=== PATIENT | female | born 1935 | race Caucasian/White ===

== ENCOUNTER 2017-07-13 10:31 | Inpatient (IN) | payer OTHER, BC, MEDICARE ==
[~2017-07-13] VITALS: Ht 165.1 cm; Wt 95.4 kg
[~2017-07-13 10:31] MED LIST: AZOR 10-40 MG1 EACH PO; B12 1MG PE1000 MCG/M IM; COUMADIN 2.5 M2.5 MG PO; COUMADIN3 M1 PO; FLOMAX(MONOGRA0.4 MG PO; PRILOSEC40 MG PO; RIVA15T PO; SYNTHROID88 MCG PO; VITAMIN D50000 I1 PO; WARFARIN SODIU2.5 MG PO; WARFARIN SODIUM1 MG PO; XARELTO10 MG PO; XARELTO20 MG PO
--- NOTE | 2017-07-13 10:36 | ED GENERAL ADULT ---
History of Present Illness General Chief Complaint: Lower Extremity Problems Stated Complaint: SENT DR FOR LLE PROBLEM Source: patient, old records, WOUND CARE MD Exam Limitations: no limitations Vital Signs & Intake/Output Vital Signs & Intake/Output Vital Signs Date Time Temp Pulse Resp B/P B/P Pulse O2 O2 Flow FiO2 Mean Ox Delivery Rate 07/13 1652 200/70 07/13 1558 97.5 89 18 200/70 95 07/13 1304 Room Air 07/13 1046 99.2 104 15 189/82 94 Room Air Room Air Allergies Coded Allergies: indomethacin (UNKNOWN 07/09/15) Reconcile Medications Amlodipine Bes/Olmesartan Med (Sarah 10-40 MG Tablet) 10 MG-40 MG TABLET 1 TAB PO DAILY HEART (Reported) Levothyroxine Sodium (Synthroid) 88 MCG TABLET 1 TAB PO DAILY AC THYROID ( Reported) Warfarin Sodium (Coumadin) 3 MG TABLET 1 TAB PO DAILY dvt (Reported) Triage Nurses Notes Reviewed? yes (verbally) Onset: Gradual Duration: constant, continues in ED, YEARS Severity: severe HPI: Patient presents for evaluation of worsening lower extremity edema despite attempts at outpatient treatment. Patient has a past history of venous insufficiency and chronic leg edema for years. She was evaluated in the wound care center and was asked to come to the emergency department for evaluation and hospitalization for aggressive diuresis. Patient states that the leg swelling has begun to impact on her ability to ambulate and is causing her excessive fatigue with any exertion. Patient denies chest pain or shortness of breath. Past History Medical History Any Pertinent Medical History? 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 No Review of Systems Review of Systems Constitutional: Reports: no symptoms. EENTM: Reports: no symptoms. Respiratory: Reports: no symptoms. Cardiovascular: Reports: no symptoms. GI: Reports: no symptoms. Genitourinary: Reports: no symptoms. Musculoskeletal: Reports: no symptoms. Skin: Reports: see HPI. Neurological/Psychological: Reports: no symptoms. Hematologic/Endocrine: Reports: no symptoms. Immunologic/Allergic: Reports: no symptoms. All Other Systems: Reviewed and Negative Physical Exam Physical Exam General Appearance: SEE BELOW Comments: Gen.: Well-nourished, well-developed, no acute respiratory distress. Head: Normocephalic, atraumatic. Eyes: Normal inspection bilaterally Ears: Normal inspection bilaterally Nose: Normal inspection Throat/mouth : Moist mucosa Neck: Supple, full range of motion, no goiter Heart: Regular rate and rhythm Lungs: Quiet respirations Back: Normal range of motion Extremities: Bilateral 2-3+ pitting edema of the lower extremities, chronic skin changes present, erythema of the anterior aspect of the left leg is chronic per patient Neurologic: Cranial nerves grossly intact, speech is clear Skin: warm and dry Psychiatric: Calm, cooperative, no apparent delusions or hallucinations Core Measures ACS in differential dx? No CVA/TIA Diagnosis: No Sepsis Present: No Sepsis Focused Exam Completed? No Progress Differential Diagnoses I considered the following diagnoses in my evaluation of the patient: Congestive heart failure, renal insufficiency/failure, venous insufficiency, liver disease Plan of Care: Orders Procedure Date/time Status PROTHROMBIN TIME 07/14 0600 Active CBC WITHOUT DIFFERENTIAL 07/14 0600 Active BASIC ELECTROLYTES PLUS BUN&CR 07/14 0600 Active TROPONIN LEVEL 07/14 0200 Active EKG 07/14 0200 Active CHF Diet 07/13 D Active TROPONIN LEVEL 07/13 2000 Active EKG 07/13 2000 Active Lab Add-on Test 07/13 1450 Active THYROID STIMULATING HORMONE 07/13 1410 Complete TROPONIN LEVEL 07/13 1410 Complete FREE T4 07/13 1410 Complete B-TYPE NATRIURETIC PEP (BNP) 07/13 1410 Complete BASIC ELECTROLYTES PLUS BUN&CR 07/13 1410 Complete EKG 07/13 1404 Active Code Status 07/13 1354 Active Pathway - chart 07/13 1316 Active House Staff 07/13 1316 Active Lab Add-on Test 07/13 1316 Active ECHOCARDIOGRAM 07/13 1316 Active Patient Data 07/13 1309 Active PROTHROMBIN TIME 07/[address] in observation 07/13 1233 Active Misc Message 07/13 1233 Active ED Holding Orders 07/13 1233 Active Vital Signs 07/13 1233 Active Code Status 07/13 1233 Complete EKG 07/13 1109 Active Saline Lock 07/13 1036 Active CBC WITHOUT DIFFERENTIAL 07/13 1036 Complete BASIC METABOLIC PANEL 07/13 1036 Complete XRY-PORTABLE CHEST XRAY 07/13 UNK Active Lab Add-on Test 07/13 UNK Active Wound Care/Dressing 07/13 UNK Active Weight 07/13 UNK Active VTE Mechanical Prophylaxis 07/13 UNK Active Vital Signs 07/13 UNK Active Telemetry/County Program Technician 07/13 UNK Active Intake & Output 07/13 UNK Active Current Medications Sig/Blayne Start time Last Medication Dose Stop Time Status Admin Amlodipine Besylate 10 MG DAILY 07/14 0900 AC (Norvasc) Levothyroxine Sodium 0.088 MG DAILY AC 07/14 0700 AC (Synthroid) Furosemide 40 MG DAILY 07/13 1449 AC (Lasix) Losartan Potassium 100 MG DAILY 07/13 1449 AC 07/13 (Cozaar) 1652 Laboratory Tests 07/13/17 1410: Anion Gap 7, Estimated GFR > 60, BUN/Creatinine Ratio 15.0, Glucose 98, Calcium 9.6, Troponin I < 0.01, Tzi-K-Saqlhniolxr Pept 366 H, TSH 0.830, Free T4 1.89 07/13/17 1345: Sodium Cancelled, Potassium Cancelled, Chloride Cancelled, Carbon Dioxide Cancelled, Anion Gap Cancelled, BUN Cancelled, Creatinine Cancelled, BUN/ Creatinine Ratio Cancelled, TSH Cancelled, Free T4 Cancelled 07/13/17 1300: PT 23.3 H, INR 2.12 H, CBC w Diff NO MAN DIFF REQ, RBC 4.54, MCV 98.2, MCH 32.0 H, MCHC 32.6 L, RDW 13.9, MPV 9.6, Gran % 73.6, Lymphocytes % 16.8 L, Monocytes % 8.1, Eosinophils % 0.8, Basophils % 0.7, Absolute Granulocytes 4.4, Absolute Lymphocytes 1.0 L, Absolute Monocytes 0.5, Absolute Eosinophils 0, Absolute Basophils 0 Initial ED EKG: NSR, rate (90), lafb Comments: 07/13/2017 5:05:04 PM i was just contacted by [facility] regarding an ultrasound ordered by the house staff. The report was that the patient doesn't appear to have a DVT but there was a linear density noted that was thought to be a venous valve or potentially recannulized clot. The pain is otherwise widely patent and easily compressible. This verbal report was conveyed to the MOD who will notify the appropriate housestaff. Departure Departure Disposition: STILL A PATIENT Condition: Stable Clinical Impression Primary Impression: Peripheral edema Referrals: Mahendra OSORIO,Maryellen Lagos (PCP/Family) Departure Forms: Customer Survey General Discharge Information Observation Note Physician Advisor Notified: EDUARDO OSORIO,SOPHIA Ledezma Place Patient In: Non-ED OBS Care Area Rationale for Observation: My rational for observation is as follows patient presents for evaluation of worsening lower extremity edema causing increasingly difficult ambulation and worsening dyspnea/fatigue on exertion. The patient has failed outpatient treatment and now requires hospitalization for a more aggressive management with IV diuresis and close monitoring of potassium and renal functions. Intake and output and daily weights should be monitored to assure a negative fluid balance. Physical therapy consultation should be considered to assess the safety and stability of the patient's ambulation. Critical Care Note Critical Care Note Critical Care Time: non-applicable
--- NOTE | 2017-07-13 13:12 | History & Physical ---
Kelsey Kiran 07/13/17 1310: General Information and HPI MD Statement: I have seen and personally examined LIEN IZAGUIRRE and documented this H&P. The patient is a 81 year old F who presented with a patient stated chief complaint of [SIB by Dr. Rajput ror IV diuresis]. 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 Rajput for evaluation of worsening lower extremity edema despite attempts at outpatient treatment. Patient has a past history of venous insufficiency and chronic leg edema for years. Patient she has been having worsening extremity edema for the past couple of months she was afraid to come to the hospital for further evaluation stating that she might catch the flu. Patient denies any fever, chills, chest discomfort however does endorse shortness of breath while going up a flight of stairs. She states that it has progressively gotten worse. Of note patient uses a walker at baseline and she is cut back pain and her mobility is much limited by her pain. Of note she follows up with Dr. Mcdonnell last saw him about 6 months ago at that time was on Sarah 10-40 mg which she said that her insurance did not cover and was changed to a generic medication which did not help her and so she stopped taking the medication altogether. When asked how her legs were made she is I Dr. Hayes in 6 months ago she states that they were slightly puffy but he never put her on any diuretics or water pills. She called the wound center and had an appointment set up as she had some drainage from her lower extremities which were concerning for her. She was evaluated in the wound care center and was asked to come to the emergency department for evaluation and hospitalization for aggressive diuresis. Allergies/Medications Allergies: Coded Allergies: indomethacin (UNKNOWN 07/09/15) Home Med list Amlodipine Bes/Olmesartan Med (Sarah 10-40 MG Tablet) 10 MG-40 MG TABLET 1 TAB PO DAILY HEART (Reported) Levothyroxine Sodium (Synthroid) 88 MCG TABLET 1 TAB PO DAILY AC THYROID ( Reported) Warfarin Sodium (Coumadin) 3 MG TABLET 1 TAB PO DAILY dvt (Reported) Compliance With Home Meds: POOR Past History Travel History Traveled to [place] past 21 day No Medical History Cardiovascular: hypertension, hyperlipidemia Respiratory: COPD, mild, no history of oxygen requirement, monitored off inhalers remote history of pulmonary nodules which are not being followed routinely Gastrointestinal: GERD, recurrent food impaction in esophagus Hepatic: NONE Renal: nephrolithiasis Musculoskeletal: spinal stenosis chronic right lower extremity pain with ambulatory dysfunction Psychiatric: NONE Endocrine: HYPOTHY R/T THYROIDECTOMY Blood Disorders: DVTs in 2011 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 spouse Services at Home: None Primary Language: Faroese ETOH Use: denies use Illicit Drug Use: denies illicit drug use Functional Ability ADLs Independent: dressing, eating, toileting, bathing. Ambulation: walker IADLs Independent: shopping, housework, food prep, telephone, medication admin. Unknown: finances, transportation. Employment History Employment Retired Review of Systems Review of Systems Constitutional: Denies: chills, fever, weakness. EENTM: Denies: visual changes. Cardiovascular: Reports: edema, peripheral edema. Denies: chest pain, orthopena, palpitations, syncope. Respiratory: Reports: short of breath. Denies: cough, orthopnea, sputum production, wheezing. GI: Denies: abdominal pain, constipation, diarrhea, nausea, vomiting. Genitourinary: Reports: no symptoms. Musculoskeletal: Reports: back pain. Neurological/Psychological: Denies: headache, numbness, tingling, tremors. Exam & Diagnostic Data Last 24 Hrs of Vital Signs/I&O Vital Signs Date Time Temp Pulse Resp B/P B/P Pulse O2 O2 Flow FiO2 Mean Ox Delivery Rate 07/13 1304 Room Air 07/13 1046 99.2 104 15 189/82 94 Room Air Room Air Intake & Output 07/13 1600 07/13 0800 07/13 0000 Intake Total Output Total Balance Patient 230 lb Weight Weight Reported by Patient Measurement Method Physical Exam General Appearance Alert, Oriented X3, Cooperative, No Acute Distress, morbidly obese Skin Temp/Moisture Exam: Warm/Dry HEENT Atraumatic, EOMI, dry mucous membranes Neck Supple, No thryomegaly, No LAD, JVD~5cm Cardiovascular Regular Rate, Normal S1, Normal S2 Lungs mild crackles b/l in lower lungs Abdomen Normal Bowel Sounds, Soft, No Tenderness Neurological Normal Speech Extremities B/L chornic venous satis changes with blisters oozing serous discharge. LLE>RLE; more erythematous Last 24 Hrs of Labs/Oscar: Laboratory Tests 07/13/17 1300: PT Pending, INR Pending, CBC w Diff NO MAN DIFF REQ, RBC 4.54, MCV 98.2, MCH 32.0 H, MCHC 32.6 L, RDW 13.9, MPV 9.6, Gran % 73.6, Lymphocytes % 16.8 L, Monocytes % 8.1, Eosinophils % 0.8, Basophils % 0.7, Absolute Granulocytes 4.4, Absolute Lymphocytes 1.0 L, Absolute Monocytes 0.5, Absolute Eosinophils 0, Absolute Basophils 0 Diagnostic Data EKG Results NSR, HR: 90; incmplete LBBB (unachnged); baseline artifacts Assessment/Plan Assessment: 79-year-old white female with a a PMH of history of morbidly obese, hyperlipidemia, hypertension, COPD not on home oxygen, GERD, food impaction in esophagus, bladder wall repair 2012, nephrolithiasis, lumbo sacral spinal stenosis repair 2009 status post decompressive lumbosacral laminectomy with IVC filter placement, hypothyroidism, 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 Patient has a past history of venous insufficiency and chronic leg edema for years. She was evaluated in the wound care center and was asked to come to the emergency department for evaluation and hospitalization for aggressive diuresis. Vitals at the time of admission, hypertensive to 189/82; RR: 15; tachycardic to 104; saturating 94% on RA. Labs reveal normal white blood cell count of 6000, H&H of 14.5/98.2, platelet count 2 27,000. Serum chemistries were unremarkable with sodium of 140, potassium 4.1, bicarb of 30, anion gap of 7, BUN 12 with a creatinine of 0.8, TSH of 0.3 and a free T4 of 1.89 with an INR of 2.12. CXR: Not done Last echocardiogram was done in 2009 which showed stage I diastolic dysfunction with an EF of 55% Assessment and plan Place patient under observation on telemetry to rule out ACS or worsening CHF exacerbation #Worsening bilateral lower extremity edema Differential at this point include CHF exacerbation in the setting of being hypertensive and being noncompliant with her blood pressure medications. Regardless to rule out ACS with troponins and EKG at 8 PM and 2 AM Follow-up proBNP Follow-up chest x-ray Follow bilateral lower extremity Dopplers We will avoid off antibiotics for now she does not have a white blood cell count , fevers Diuresis with IV Lasix 40 mg daily as patient is sarah Echocardiogram to further evaluate for any regional wall motion abnormalities and to evaluate EF Cardiology consult with Dr. Mcdonnell has been placed. Please follow-up recommendations Wound consult in a.m. #Hypertension Diurese her with Lasix 40 mg IV daily Continue her on her home dose of amlodipine 10 mg daily starting tomorrow and will switch her to losartan 100 mg daily which is equivalent to 40 mg of olmesartan. #History of DVTs Dose Coumadin 3 mg #Hypothyroidism Continue levothyroxine 88 MCG daily DVT prophylaxis On warfarin Diet CHF CODE STATUS Full As Ranked By This Provider Problem List: 1. Peripheral edema 2. Hypertension Observation Initial Note - I have personally examined LIEN IZAGUIRRE on 07/13/17 at 1543. The disposition of LIEN IZAGUIRRE is uncertain at this time and before a determination can be made, she requires a period of observation for the following reasons [Diuresis for CHF] Core Measures/Misc (12/18) Acute Coronary Syndrome ACS Diagnosis: No Congestive Heart Failure Congestive Heart Failure Diagnosis Yes Last Known EF % 50 Cerebrovascular Accident CVA/TIA Diagnosis: No VTE (View Protocol) VTE Risk Factors Age>40 No Mechanical VTE Prophylaxis d/t N/A MechProphylax Ordered No VTE Pharm Prophylaxis d/t NA PharmProphylax ordered Sepsis (View protocol) Sepsis Present: No Resident Review Statement Resident Statement: admitted by resident Desire Garcia 07/13/17 1506: Attending MD Review Statement Attending Statement Attending MD Statement: examined this patient, discuss w/resident/PA/HABILITATION SPECIALIST, agreed w/resident/PA/HABILITATION SPECIALIST, discussed with family, reviewed EMR data (avail), discussed with nursing, discussed with case mgmt, reviewed images, amended to note Attending Assessment/Plan: 79 o/f with above mentioned history comes with chronic venous stasis of lower extremities was sent in by Dr. Rajput for evaluation of worsening lower extremity edema and accelerated hypertension. Patient placed on observation status for acute on chronic CHF exacerbation, ECHO 2009 EF >50%. Continue telemetry monitoring, obtain serial cardiac enzymes rule out AL. Received lasix 1v 40 mg daily. Cardiology consult, ECHO, Chest xray, USG lower extremities. Monitor BP. Resume home meds. GI/dvt prophyalxis full code.
[2017-07-13 13:13] LABS: ABSOLUTE BASOPHIL COUNT 0 /CUMM (0.0-0.2); ABSOLUTE EOSINOPHIL COUNT 0 /CUMM (0.0-0.7); ABSOLUTE GRANULOCYTE CT 4.4 /CUMM (1.4-6.5); ABSOLUTE MONOCYTE COUNT 0.5 /CUMM (0.10-0.60); BASOPHIL % 0.7 % (0.0-2.0); EOSINOPHIL % 0.8 % (0-5); GRANULOCYTE % 73.6 % (42.2-75.2); HEMATOCRIT 44.5 % (37-47); MEAN CORPUSCULAR HGB CONC 32.6 G/DL (33.0-37.0); MEAN CORPUSCULAR VOLUME 98.2 FL (81.0-99.0); MEAN PLATELET VOLUME 9.6 FL (7.4-10.4); PLATELET COUNT 227 /CUMM (130-400); RBC DISTRIBUTION WIDTH 13.9 % (11.5-14.5); RED BLOOD CELL CT 4.54 /CUMM (4.20-5.40)
[2017-07-13 13:47] LABS: PT 23.3 SEC (9.4-12.5)
--- NOTE | 2017-07-13 17:07 | ULTRASOUND REPORT ---
US TRIPLEX OF LOWER EXTREMITIES, BILATERAL CLINICAL INFORMATION: Left lower extremity greater than right lower extremity swelling COMPARISON: Doppler ultrasound 02/25/2016. TECHNIQUE: Color-flow triplex imaging with spectral analysis and compression Doppler were performed on the lower extremities. FINDINGS: There is a linear focus of intermediate echogenicity within the mid left femoral vein which remains fully compressible. I favor this to reflect a normal venous valve. A small focus of recanalized chronic thrombus is felt to be much less likely. Respiratory variation, normal compression and augmented flow are otherwise noted throughout the lower extremities. The visualized common femoral vein, superficial femoral vein, profunda femoral vein, popliteal vein and midcalf peroneal and posterior tibial venous segments show no additional evidence of deep venous thrombosis. There is no right greater saphenous vein. There is a Tao cyst on the right side measuring up to 0.8 x 2.7 x 1.4 cm. IMPRESSION: - No evidence of acute deep venous thrombosis. There is a linear focus of intermediate echogenicity within the mid left femoral vein which remains fully compressible. I favor this to reflect a normal venous valve. A small focus of recanalized chronic thrombus is felt to be much less likely. - There is a Tao cyst on the right side measuring up to 0.8 x 2.7 x 1.4 cm. Findings discussed with Dr. Morillo at 5:02 PM on 07/13/2017.
--- NOTE | 2017-07-13 17:21 | RADIOLOGY REPORT ---
EXAMINATION: XR PORTABLE CHEST CLINICAL INFORMATION: 81-year-old female patient with worsening shortness of breath and lower extremity edema. Presumptive diagnosis: CHF. COMPARISON: Portable chest x-ray on March 01, 2015. TECHNIQUE: Portable AP semierect view of the chest was obtained. FINDINGS: The heart is borderline size. Pulmonary vascularity is normal. Lungs are clear and there is no evidence of consolidation, edema, or atelectasis. No visible pleural effusion is seen. The patient's chin obscures a portion of the right apex. IMPRESSION: No CHF.
[2017-07-13 23:22] VITALS: BP 158/92
[2017-07-14 06:02] VITALS: BP 150/70
--- NOTE | 2017-07-14 07:23 | PN- Housestaff ---
Kelsey Kiran 07/14/17 0723: Subjective Follow-up For: - Bilateral lwoer extremity edema - Dyspnea on exertion - HTN Complaints: no complaints Tele-Events Since Last Visit: NSR 66-77, no overnight events Subjective: Patient seen and examined at bedside. She states she feels much better today, and that the sweling in her legs has come down. Denies any CP, palpitations, N/ V. Of note she put out almost 700mls of urine last evening after diuresis with Lasix. Review of Systems Constitutional: Denies: chills, fever, weakness. EENTM: Denies: visual changes. Cardiovascular: Reports: peripheral edema. Denies: chest pain, palpitations. Respiratory: Denies: cough, orthopnea, short of breath, wheezing. Gastrointestinal: Denies: abdominal pain, constipation, diarrhea, nausea, vomiting. Genitourinary: Reports: no symptoms. Musculoskeletal: Reports: no symptoms. Neurological/Psychological: Denies: numbness, paresthesia, tingling, tremors. Objective Last 24 Hrs of Vital Signs/I&O Vital Signs Date Time Temp Pulse Resp B/P B/P Pulse O2 O2 Flow FiO2 Mean Ox Delivery Rate 07/14 0602 97.9 79 18 150/70 93 Room Air 07/13 2322 98.2 81 18 158/92 94 Room Air 07/13 2006 98.5 82 18 187/81 99 Room Air 07/13 1652 200/70 07/13 1558 97.5 89 18 200/70 95 07/13 1304 Room Air 07/13 1046 99.2 104 15 189/82 94 Room Air Room Air Intake & Output 07/14 0800 07/14 0000 07/13 1600 Intake Total 240 Output Total 700 Balance -700 240 Intake, Oral 240 Output, Urine 700 Patient 226 lb 230 lb Weight Weight Bed scale Reported by Patient Measurement Method Physical Exam General Appearance: Alert, Oriented X3, Cooperative, No Acute Distress Skin Temp/Moisture Exam: Warm/Dry HEENT: Atraumatic, PERRLA, EOMI, Mucous Membr. moist/pink Neck: Supple, No JVD, No thryomegaly Cardiovascular: Regular Rate, Normal S1, Normal S2, No Murmurs Lungs: very mild bibasilar crackles Abdomen: Normal Bowel Sounds, Soft, No Tenderness Neurological: Normal Speech Extremities: b/l 1-2+ edema - better than last evening Current Medications: Current Medications Sig/Blayne Start time Last Medication Dose Route Stop Time Status Admin Amlodipine Besylate 10 MG DAILY 07/14 0900 AC PO Furosemide 0 .STK-MED ONE 07/13 1605 DC IV Furosemide 40 MG DAILY 07/13 1449 AC 07/13 IV 1723 Levothyroxine Sodium 0.088 MG DAILY AC 07/14 0700 AC 07/14 PO 0513 Losartan Potassium 100 MG DAILY 07/13 1449 AC 07/13 PO 1652 Warfarin Sodium 3 MG COUMADIN 1700 ONE 07/13 1700 DC 07/13 PO 07/13 1701 1652 Last 24 Hrs of Lab/Oscar Results Last 24 Hrs of Labs/Mics: Laboratory Tests 07/14/17 0621: Sodium Pending, Potassium Pending, Chloride Pending, Carbon Dioxide Pending, Anion Gap Pending, BUN Pending, Creatinine Pending, BUN/Creatinine Ratio Pending , PT Pending, INR Pending, CBC w Diff Pending, WBC Pending, RBC Pending, Hgb Pending, Hct Pending, MCV Pending, MCH Pending, MCHC Pending, RDW Pending, Plt Count Pending, MPV Pending 07/14/17 0225: Troponin I 0.02 07/13/17 2255: Troponin I 0.02 07/13/17 1410: Anion Gap 7, Estimated GFR > 60, BUN/Creatinine Ratio 15.0, Glucose 98, Calcium 9.6, Troponin I < 0.01, Mnf-O-Zjznsvsknih Pept 366 H, TSH 0.830, Free T4 1.89 07/13/17 1345: Sodium Cancelled, Potassium Cancelled, Chloride Cancelled, Carbon Dioxide Cancelled, Anion Gap Cancelled, BUN Cancelled, Creatinine Cancelled, BUN/ Creatinine Ratio Cancelled, TSH Cancelled, Free T4 Cancelled 07/13/17 1300: PT 23.3 H, INR 2.12 H, CBC w Diff NO MAN DIFF REQ, RBC 4.54, MCV 98.2, MCH 32.0 H, MCHC 32.6 L, RDW 13.9, MPV 9.6, Gran % 73.6, Lymphocytes % 16.8 L, Monocytes % 8.1, Eosinophils % 0.8, Basophils % 0.7, Absolute Granulocytes 4.4, Absolute Lymphocytes 1.0 L, Absolute Monocytes 0.5, Absolute Eosinophils 0, Absolute Basophils 0 Orders Radiology Findings: SERVICE DATE: 07/13/17- EXAM TYPE: RAD - XRY-PORTABLE CHEST XRAY FINDINGS: The heart is borderline size. Pulmonary vascularity is normal. Lungs are clear and there is no evidence of consolidation, edema, or atelectasis. No visible pleural effusion is seen. The patient's chin obscures a portion of the right apex. IMPRESSION: No CHF. SERVICE DATE: 07/13/17-EXAM TYPE: US - US-EXT BILAT VENOUS DOPPLER FINDINGS: There is a linear focus of intermediate echogenicity within the mid left femoral vein which remains fully compressible. I favor this to reflect a normal venous valve. A small focus of recanalized chronic thrombus is felt to be much less likely. Respiratory variation, normal compression and augmented flow are otherwise noted throughout the lower extremities. The visualized common femoral vein, superficial femoral vein, profunda femoral vein, popliteal vein and midcalf peroneal and posterior tibial venous segments show no additional evidence of deep venous thrombosis. There is no right greater saphenous vein. There is a Tao cyst on the right side measuring up to 0.8 x 2.7 x 1.4 cm. IMPRESSION: - No evidence of acute deep venous thrombosis. There is a linear focus of intermediate echogenicity within the mid left femoral vein which remains fully compressible. I favor this to reflect a normal venous valve. A small focus of recanalized chronic thrombus is felt to be much less likely. - There is a Tao cyst on the right side measuring up to 0.8 x 2.7 x 1.4 cm. 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 Patient has a past history of venous insufficiency and chronic leg edema for years. She was evaluated in the wound care center and was asked to come to the emergency department for evaluation and hospitalization for aggressive diuresis. Vitals at the time of admission, hypertensive to 189/82; RR: 15; tachycardic to 104; saturating 94% on RA. Labs reveal normal white blood cell count of 6000, H&H of 14.5/98.2, platelet count 2 27,000. Serum chemistries were unremarkable with sodium of 140, potassium 4.1, bicarb of 30, anion gap of 7, BUN 12 with a creatinine of 0.8, TSH of 0.3 and a free T4 of 1.89 with an INR of 2.12. CXR: Not done Last echocardiogram was done in 2009 which showed stage I diastolic dysfunction with an EF of 55% Assessment and plan Place patient under observation on telemetry to rule out ACS or worsening CHF exacerbation #Worsening bilateral lower extremity edema 2/2 CHF exacerbation in the setting of being hypertensive and being noncompliant with her blood pressure medications. ACS was r/o wuth trops and ECG unremarkable. His BNP was 366. Follow-up chest x-ray showed normal pulmonary vasculature. Lungs are clear and there is no evidence of consolidation, edema, or atelectasis. No visible pleural effusion is seen. Lower extremity Dopplers showed no evidence of acute deep venous thrombosis. There is a linear focus of intermediate echogenicity within the mid left femoral vein which remains fully compressible, which was deemed to reflect a normal venous valve. Continue to elder off antibiotics for now she does not have a white blood cell count, or fevers Continue diuresis with IV Lasix 40 mg daily Strict I's and O's F/U Echocardiogram to further evaluate for any regional wall motion abnormalities and to evaluate EF Cardiology consult with Dr. Mcdonnell has been placed. Please follow-up recommendations Wound consult in a.m. #Hypertension - Uncontrolled on admission 2/2 medication noncompliance, as patient stopped Continue her home dose of amlodipine 10 mg daily and losartan 100 mg daily which is equivalent to 40 mg of olmesartan. - Of note patient stats tahthis insurance doesnt cover the Sarah 10-40mg daily. #History of DVTs INR: 2.28 Dose Coumadin 3 mg #Hypothyroidism Continue levothyroxine 88 MCG daily TSH, FT4 WNL. DVT prophylaxis On warfarin Diet CHF CODE STATUS Full Problem List: 1. Peripheral edema 2. Hypertension Pain Ratin Pain Location: n/a Pain Goal: Remain pain free Pain Plan: tylenol Tomorrow's Labs & Rationales: BEP - Cr, K; INR - tiDesire Miranda 07/14/17 1054: Attending MD Review Statement Attending Statement Attending MD Statement: examined this patient, discuss w/resident/PA/LOGISTICS OPERATIONS DIRECTOR, agreed w/resident/PA/LOGISTICS OPERATIONS DIRECTOR, discussed with family, reviewed EMR data (avail), discussed with nursing, discussed with case mgmt, reviewed images, amended to note Attending Assessment/Plan: 79 o/f with above mentioned history comes with chronic venous stasis of lower extremities was sent in by Dr. Rajput for evaluation of worsening lower extremity edema and accelerated hypertension. Continue observation status for possible acute on chronic CHF exacerbation or possibel worsening of venous extremity stasis, Continue telemetry monitoring, serial cardiac enzymes negative for OK. lasix 1v 40 mg daily. Cardiology consult, ECHO f/u, Chest xray no pulmonary edema, USG lower extremities negative for DVT. BP better. GI/dvt prophyalxis full code. Anticipate dc soon.
[2017-07-14 07:48] LABS: ABSOLUTE BASOPHIL COUNT 0 /CUMM (0.0-0.2); ABSOLUTE EOSINOPHIL COUNT 0.1 /CUMM (0.0-0.7); ABSOLUTE GRANULOCYTE CT 4.1 /CUMM (1.4-6.5); ABSOLUTE LYMPH COUNT 0.9 /CUMM (1.2-3.4); ABSOLUTE MONOCYTE COUNT 0.5 /CUMM (0.10-0.60); BASOPHIL % 0.7 % (0.0-2.0); EOSINOPHIL % 1.2 % (0-5); GRANULOCYTE % 73.4 % (42.2-75.2); MEAN CORPUSCULAR HGB 32.3 PG (27.0-31.0); MEAN CORPUSCULAR HGB CONC 32.9 G/DL (33.0-37.0); MEAN PLATELET VOLUME 9.7 FL (7.4-10.4); PLATELET COUNT 208 /CUMM (130-400); RBC DISTRIBUTION WIDTH 13.4 % (11.5-14.5); RED BLOOD CELL CT 4.03 /CUMM (4.20-5.40); WHITE BLOOD CELL COUNT 5.6 /CUMM (4.8-10.8)
[2017-07-14 07:59] LABS: HEMATOCRIT 39.5 % (37-47)
[2017-07-14 08:21] LABS: PT 25.1 SEC (9.4-12.5)
--- NOTE | 2017-07-14 14:37 | Discharge Summary ---
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 Patient has a past history of venous insufficiency and chronic leg edema for years. She was evaluated in the wound care center and was asked to come to the emergency department for evaluation and hospitalization for aggressive diuresis. Vitals at the time of admission, hypertensive to 189/82; RR: 15; tachycardic to 104; saturating 94% on RA. Labs reveal normal white blood cell count of 6000, H&H of 14.5/98.2, platelet count 2 27,000. Serum chemistries were unremarkable with sodium of 140, potassium 4.1, bicarb of 30, anion gap of 7, BUN 12 with a creatinine of 0.8, TSH of 0.3 and a free T4 of 1.89 with an INR of 2.12. CXR: Not done Last echocardiogram was done in 2009 which showed stage I diastolic dysfunction with an EF of 55% Patient was placed under observation on telemetry for worsening CHF exacerbation and to rule out ACS #Worsening bilateral lower extremity edema 2/2 acute CHF exacerbation in the setting of being hypertensive and being noncompliant with her blood pressure medications. ACS was r/o with trops and ECG unremarkable. Her BNP was 366. Chest x-ray showed normal pulmonary vasculature. Lungs are clear and there is no evidence of consolidation, edema, or atelectasis. No visible pleural effusion is seen. Lower extremity Dopplers showed no evidence of acute deep venous thrombosis. There is a linear focus of intermediate echogenicity within the mid left femoral vein which remains fully compressible, which was deemed to reflect a normal venous valve. We warded her off antibiotics as she did not have a white blood cell count, or fevers She was started on iv diuresis with Lasix 40 mg daily. Patient diuresed well. She is being discharged on Lasix 40mg PO daily. Of note echocardiogram was doen to further evaluate for any regional wall motion abnormalities and to evaluate EF. It showed no RWMA, mild concentric left ventricular hypertrophy. Normal left ventricular ejection fraction visually estimated at 65%. Abnormal relaxation filling pattern of the left ventricle for age(stage 1 diastolic dysfunction). #Hypertension Patient was hypertensive to 189/92 on admission. This was 2/2 medication noncompliance, as patient stopped her home medications 2/2 insurance issues. She was continue her home dose of amlodipine 10 mg daily and losartan 100 mg daily which is equivalent to 40 mg of olmesartan. She was seen by her primary corrugator machine operator Dr. Mcdonnell who recommended she be on her home regimen of Amlodipine 10mg daily and Losartan 100mg daily. #History of DVTs Patient was continued on her home dose of Coumaidn. She remained theraapeutic throughout #Hypothyroidism She was continued on levothyroxine 88 MCG daily. Of note her TSH and FT4 were WNL. DVT prophylaxis Patient was on warfarin Diet CHF CODE STATUS Patient was full code Allergies: Coded Allergies: indomethacin (UNKNOWN 07/09/15) Significant Procedures: SERVICE DATE: 07/13/17- EXAM TYPE: RAD - XRY-PORTABLE CHEST XRAY FINDINGS: The heart is borderline size. Pulmonary vascularity is normal. Lungs are clear and there is no evidence of consolidation, edema, or atelectasis. No visible pleural effusion is seen. The patient's chin obscures a portion of the right apex. IMPRESSION: No CHF. SERVICE DATE: 07/13/17- EXAM TYPE: US - US-EXT BILAT VENOUS DOPPLER FINDINGS: There is a linear focus of intermediate echogenicity within the mid left femoral vein which remains fully compressible. I favor this to reflect a normal venous valve. A small focus of recanalized chronic thrombus is felt to be much less likely. Respiratory variation, normal compression and augmented flow are otherwise noted throughout the lower extremities. The visualized common femoral vein, superficial femoral vein, profunda femoral vein, popliteal vein and midcalf peroneal and posterior tibial venous segments show no additional evidence of deep venous thrombosis. There is no right greater saphenous vein. There is a Tao cyst on the right side measuring up to 0.8 x 2.7 x 1.4 cm. IMPRESSION: - No evidence of acute deep venous thrombosis. There is a linear focus of intermediate echogenicity within the mid left femoral vein which remains fully compressible. I favor this to reflect a normal venous valve. A small focus of recanalized chronic thrombus is felt to be much less likely. - There is a Tao cyst on the right side measuring up to 0.8 x 2.7 x 1.4 cm. Findings discussed with Dr. Morillo at 5:02 PM on 07/13/2017. SERVICE DATE: 07/13/17 EXAM TYPE: CARD - ECHOCARDIOGRAM FINDINGS Left Ventricle Normal size left ventricle. Mild concentric left ventricular hypertrophy. No obvious regional wall motion abnormalities. Normal left ventricular ejection fraction visually estimated at 65%. Abnormal relaxation filling pattern of the left ventricle for age (stage 1 diastolic dysfunction). Right Ventricle Upper normal limits for size right ventricle. Right Atrium Normal right atrial size. Left Atrium Normal left atrial size. Mitral Valve Mildly calcified mitral valve annulus. Mitral valve mildly thickened. No mitral regurgitation. Aortic Valve Aortic valve not well visualized. Mild aortic sclerosis. No aortic valve stenosis or regurgitation. Tricuspid Valve Structurally normal tricuspid valve. Trace tricuspid regurgitation. Unable to estimate the right ventricular systolic pressure. Pulmonic Valve Not well visualized. No pulmonic regurgitation. Pericardium No pericardial effusion. Great Vessels Upper normal size aortic root. Dilated inferior vena cava. CONCLUSIONS Normal size left ventricle. Mild concentric left ventricular hypertrophy. Normal left ventricular ejection fraction visually estimated at 65%. Abnormal relaxation filling pattern of the left ventricle for age (stage 1 diastolic dysfunction). Upper normal limits for size right ventricle. Normal atrial size. Trace tricuspid regurgitation. Unable to estimate the right ventricular systolic pressure. Dilated inferior vena cava. Blayne Mcdonnell M.D. (Electronically Signed) Final Date: 14 July 2017 18:13 MEASUREMENTS (Male / Female) Normal Values 2D ECHO LV Diastolic Diameter PLAX 4.2 cm 4.2 - 5.9 / 3.9 - 5.3 cm LV Systolic Diameter PLAX 2.7 cm 2.1 - 4.0 cm LV Fractional Shortening PLAX 35.7 % 25 - 46 % LV Ejection Fraction 2D Teich 65.6 % IVS Diastolic Thickness 1.1 cm LVPW Diastolic Thickness 1.1 cm LV Relative Wall Thickness 0.5 RV Internal Dim ED PLAX 3.8 cm 1.9 - 3.8 cm LVOT Diameter 1.8 cm Aortic Root Diameter 3.5 cm LA Systolic Diameter LX 3.0 cm 3.0 - 4.0 / 2.7 - 3.8 cm LA Volume 36.0 cm 18 - 58 / 22 - 52 cm Ascending Aorta Diameter 3.4 cm DOPPLER AV Peak Velocity 152.0 cm/s AV Peak Gradient 9.2 mmHg AV Mean Velocity 102.0 cm/s AV Mean Gradient 5.0 mmHg AV Velocity Time Integral 32.3 cm LVOT Peak Velocity 108.0 cm/s LVOT Peak Gradient 4.7 mmHg LVOT Mean Velocity 64.5 cm/s LVOT Mean Gradient 2.0 mmHg LVOT Velocity Time Integral 26.5 cm LVOT Stroke Volume 67.4 cm AV Area Cont Eq vti 2.1 cm AV Area Cont Eq pk 1.8 cm MV Peak Velocity 165.0 cm/s MV Peak Gradient 10.9 mmHg MV Mean Velocity 90.0 cm/s MV Mean Gradient 4.0 mmHg Mitral E Point Velocity 86.4 cm/s Mitral A Point Velocity 140.0 cm/s Mitral E to A Ratio 0.6 MV PHT Velocity 118.0 cm/s MV Deceleration [place] 671.0 cm/s MV Pressure Half Time 52.8 ms MV Area PHT 4.2 cm MV Deceleration Time 408.0 ms PV Peak Velocity 116.0 cm/s PV Peak Gradient 5.4 mmHg PV Mean Velocity 82.7 cm/s PV Mean Gradient 3.0 mmHg PV Velocity Time Integral 24.3 cm Disposition Summary Disposition Principal Diagnosis: Worsening B/L lower extremity edema 2/2 HF Uncontrolled HTN Additional Diagnosis: Hypothyroidism Hx of DVT Discharge Disposition: home or self care Discharge Instructions General Discharge Information Code Status: Full Code Patient's Diet: CHF Patient's Activity: As tolerated Follow-Up Instructions/Appts: Please follow up with your primary c are phsyician in one week. Please follow up with your corrugator machine operator in one week. Please follow-up withy Dr. Rajput in the wound care center within 2-3 days of discharge. Medications at Discharge Discharge Medications: Stop taking the following medications: Amlodipine Bes/Olmesartan Med (Sarah 10-40 MG Tablet) 10 MG-40 MG TABLET ORAL DAILY Continue taking these medications: Levothyroxine Sodium (Synthroid) 88 MCG TABLET 1 Tablet ORAL DAILY BEFORE BREAKFAST Comments: Last Taken:07/16/17 Time:0630 Warfarin Sodium (Coumadin) 3 MG TABLET 1 Tablet ORAL DAILY Comments: 2.5 MG RECEIVED 07/16/17 Start taking the following new medications: Furosemide (Furosemide) 40 MG TABLET 1 Tablet ORAL DAILY Qty = 90 No Refills Instructions: . Comments: Last Taken:07/16/17 GIVEN IV AT HOSPITAL Time:1600 Losartan (Cozaar) 100 MG TABLET 100 Milligram ORAL DAILY Qty = 90 No Refills Instructions: . Comments: Last Taken:07/16/17 Time:0830 Amlodipine Besylate (Norvasc) 10 MG TABLET 10 Milligram ORAL DAILY Qty = 90 No Refills Instructions: . Comments: Last Taken:07/16/17 Time:0830 Copies To: Atiya OSORIO,Ricci Ledezma; Sathya OSORIO,Blayne Masterson; Mahendra OSORIO,Maryellen Lagos Attending MD Review Statement Documenting Attending: Radha OSORIO,Desire
[2017-07-14] MEDS ORDERED: FUROSEMIDE40 M1 PO (14:38)
[2017-07-14] MEDS ORDERED: COZAAR100 M1 PO (14:38)
[2017-07-14] MEDS ORDERED: NORVASC10 M1 PO (14:38)
--- NOTE | 2017-07-14 14:47 | Patient Discharge Instructions ---
Discharge Instructions General Discharge Information You were seen/treated for: - B/L lower extremity edema 2/2 CHF exacerbation Special Instructions: Please follow up with your primary care phsyician in one week. Please follow up with your automotive glazier in one week. Please follow-up withy Dr. Rajput in the wound care center within 2-3 days of discharge. Take all medication as directed. Diet Recommended Diet: Heart Healthy Limit DAILY fluid amt to mls: 1500 Activity Activity Self Limited: Yes Acute Coronary Syndrome Inclusion Criteria At DC or during hospital stay patient has or had the following: ACS DIAGNOSIS No Discharge Core Measures Meds if any: Prescribed or Continued at Discharge Meds if any: NOT Prescribed or Continued at Discharge Congestive Heart Failure Inclusion Criteria At DC or during hospital stay patient has or had the following: CHF DIAGNOSIS Yes Discharge Core Measures Meds if any: Prescribed or Continued at Discharge MARCELINA/ARB for EF <40% Yes Meds if any: NOT Prescribed or Continued at Discharge Cerebrovascular accident Inclusion Criteria At DC or during hospital stay patient has or had the following: CVA/TIA Diagnosis No Discharge Core Measures Meds if any: Prescribed or Continued at Discharge Meds if any: NOT Prescribed or Continued at Discharge Venous thromboembolism Inclusion Criteria VTE Diagnosis No VTE Type NONE VTE Confirmed by (Test) NONE Discharge Core Measures - Per Current guidelines, there needs to be overlap - treatment for the first 5 days of Warfarin therapy. - If discharged on Warfarin prior to 5 days of - overlap therapy, the patient will need to be - assessed for post discharge needs including - *Post discharge parental anticoagulation - *Warfarin and/or parental anticoagulation education - *Follow up date to check INR post discharge At least 5 days overlap therapy as Inpatient No Meds if any: Prescribed or Continued at Discharge Note: Overlap Therapy is Warfarin and Anticoagulant Meds if any: NOT Prescribed or Continued at Discharge
[2017-07-14 14:56] VITALS: BP 122/70
--- NOTE | 2017-07-14 15:26 | Cons- Cardiology ---
General Information and HPI Consulting Request Date of Consult: 07/14/17 Requested By: Desire Garcia MD Reason for Consult: Shortness of breath. Source of Information: patient, old records Exam Limitations: poor historian History of Present Illness: Mrs. Shante Head is an 81-year-old white female with a history of morbid obesity , hypertension, dyslipidemia, hypothyroidism, COPD, pulmonary nodules, gastroesophageal reflux disease, previous esophageal food impactionsecondary to gastroesophageal ring February 2015, bladder wall repair 2012, nephrolithiasis, disabling lumbosacral spinal stenosis status post decompressive lumbosacral laminectomy 02/05/2010 with IVC filter placed given high risk for DVT/pulmonary embolism and positive troponin felt secondary to a Type II IA following clearance after a negative pharmacologic stress test 02/01/2010, 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 Additionally, she had been on the antihypertensive agent Sarah (amlodipine and olmesartan),but was switched to generic medications which reportedly did not adequately control her hypertension and as a result discontinued these agents Allergies/Medications Allergies: Coded Allergies: indomethacin (UNKNOWN 07/09/15) Home Med List: Amlodipine Bes/Olmesartan Med (Sarah 10-40 MG Tablet) 10 MG-40 MG TABLET 1 TAB PO DAILY HEART (Reported) Amlodipine Besylate (Norvasc) 10 MG TABLET 10 MG PO DAILY htn Furosemide 40 MG TABLET 1 TAB PO DAILY fluid overload Levothyroxine Sodium (Synthroid) 88 MCG TABLET 1 TAB PO DAILY AC THYROID ( Reported) Losartan (Cozaar) 100 MG TABLET 100 MG PO DAILY htn Warfarin Sodium (Coumadin) 3 MG TABLET 1 TAB PO DAILY dvt (Reported) Review of Systems Review of Systems: A 14 point system review was obtained and was noncontributory, other than as above. Past History Travel History Traveled to [place] past 21 day No Medical History Blood Transfusion Hx: No Cardiovascular: hypertension, hyperlipidemia Respiratory: COPD, mild, no history of oxygen requirement, monitored off inhalers remote history of pulmonary nodules which are not being followed routinely Gastrointestinal: GERD, recurrent food impaction in esophagus Hepatic: NONE Renal: nephrolithiasis Musculoskeletal: spinal stenosis chronic right lower extremity pain with ambulatory dysfunction Psychiatric: NONE Endocrine: HYPOTHY R/T THYROIDECTOMY Blood Disorders: DVTs in 2011 TIP PRINTER/Reproductive: HYSTERECTOMY Surgical History Surgical History: hysterectomy, laminectomy, s/p bladder wall repair s/p IVC filter s/p lysis and angioplasty of DVT S/P THROIDECTOMY SPINAL SURGERY FOR STENOSIS Family History Relations & Conditions If Any: MOTHER *No pertinent family history Relation not specified for: FH: HTN (hypertension) Psychosocial History Who Do You Live With? spouse Services at Home: None Primary Language: Sudanese Smoking Status: Never Smoked ETOH Use: denies use Illicit Drug Use: denies illicit drug use Functional Ability ADLs Independent: dressing, eating, toileting, bathing. Ambulation: walker IADLs Independent: shopping, housework, food prep, telephone, medication admin. Unknown: finances, transportation. Employment History Employment: Retired Exam & Diagnostic Data Vital Signs and I&O Vital Signs Date Time Temp Pulse Resp B/P B/P Pulse O2 O2 Flow FiO2 Mean Ox Delivery Rate 07/14 1456 97.8 85 20 122/70 93 Room Air 07/14 0832 148/76 07/14 0832 148/76 07/14 0602 97.9 79 18 150/70 93 Room Air 07/13 2322 98.2 81 18 158/92 94 Room Air 07/13 2006 98.5 82 18 187/81 99 Room Air 07/13 1652 200/70 Intake & Output 07/14 1600 07/14 0800 07/14 0000 07/13 1600 07/13 0800 07/13 0000 Intake Total 420 240 Output Total 950 700 Balance -530 -700 240 Intake, IV 20 Intake, Oral 400 240 Output, Urine 950 700 Patient 226 lb 230 lb Weight Weight Bed scale Reported by Patient Measurement Method Physical Exam: well-developed, morbidly obese elderly female in no acute distress. Vital signs: See above. HEENT: Normocephalic, atraumatic, EOMI, moist mucous membranes. Neck: No JVD, no bruits. Lungs: Decreased breath sounds bilaterally. Heart: S1, S2 with a soft (grade 1/6) systolic murmur. No gallop or rub. Abdomen: Soft, nontender, positive bowel sounds. Extremities: Bilateral 2+ lower extremity edema. Labs/Oscar Results: Laboratory Tests 07/14 07/14 07/13 07/13 0621 0225 2255 1410 Chemistry Sodium (137 - 145 mmol/L) 140 140 Potassium (3.5 - 5.1 mmol/L) 4.0 4.1 Chloride (98 - 107 mmol/L) 100 103 Carbon Dioxide (22 - 30 mmol/L) 31 H 30 Anion Gap (5 - 16) 8 7 BUN (7 - 17 mg/dL) 14 12 Creatinine (0.5 - 1.0 mg/dL) 0.8 0.8 Estimated GFR (>60 ml/min) > 60 > 60 BUN/Creatinine Ratio (7 - 25 %) 17.5 15.0 Glucose (65 - 99 mg/dL) 98 Calcium (8.4 - 10.2 mg/dL) 9.6 Troponin I (< 0.11 ng/ml) 0.02 0.02 < 0.01 [id number] Pept (<125 pg/mL) 366 H TSH (0.270 - 4.200 uIU/mL) 0.830 Free T4 (0.85 - 1.93 ng/dL) 1.89 Coagulation PT (9.4 - 12.5 SEC) 25.1 H INR (0.90 - 1.19) 2.28 H Hematology CBC w Diff NO MAN DIFF REQ WBC (4.8 - 10.8 /CUMM) 5.6 RBC (4.20 - 5.40 /CUMM) 4.03 L Hgb (12.0 - 16.0 G/DL) 13.0 Hct (37 - 47 %) 39.5 MCV (81.0 - 99.0 FL) 98.0 MCH (27.0 - 31.0 PG) 32.3 H MCHC (33.0 - 37.0 G/DL) 32.9 L RDW (11.5 - 14.5 %) 13.4 Plt Count (130 - 400 /CUMM) 208 MPV (7.4 - 10.4 FL) 9.7 Gran % (42.2 - 75.2 %) 73.4 Lymphocytes % (20.5 - 51.1 %) 16.2 L Monocytes % (1.7 - 9.3 %) 8.5 Eosinophils % (0 - 5 %) 1.2 Basophils % (0.0 - 2.0 %) 0.7 Absolute Granulocytes (1.4 - 6.5 /CUMM) 4.1 Absolute Lymphocytes (1.2 - 3.4 /CUMM) 0.9 L Absolute Monocytes (0.10 - 0.60 /CUMM) 0.5 Absolute Eosinophils (0.0 - 0.7 /CUMM) 0.1 Absolute Basophils (0.0 - 0.2 /CUMM) 0 07/13 07/13 1345 1300 Chemistry Sodium Cancelled Potassium Cancelled Chloride Cancelled Carbon Dioxide Cancelled Anion Gap Cancelled BUN Cancelled Creatinine Cancelled BUN/Creatinine Ratio Cancelled TSH Cancelled Free T4 Cancelled Coagulation PT (9.4 - 12.5 SEC) 23.3 H INR (0.90 - 1.19) 2.12 H Hematology CBC w Diff NO MAN DIFF REQ WBC (4.8 - 10.8 /CUMM) 6.0 RBC (4.20 - 5.40 /CUMM) 4.54 Hgb (12.0 - 16.0 G/DL) 14.5 Hct (37 - 47 %) 44.5 MCV (81.0 - 99.0 FL) 98.2 MCH (27.0 - 31.0 PG) 32.0 H MCHC (33.0 - 37.0 G/DL) 32.6 L RDW (11.5 - 14.5 %) 13.9 Plt Count (130 - 400 /CUMM) 227 MPV (7.4 - 10.4 FL) 9.6 Gran % (42.2 - 75.2 %) 73.6 Lymphocytes % (20.5 - 51.1 %) 16.8 L Monocytes % (1.7 - 9.3 %) 8.1 Eosinophils % (0 - 5 %) 0.8 Basophils % (0.0 - 2.0 %) 0.7 Absolute Granulocytes (1.4 - 6.5 /CUMM) 4.4 Absolute Lymphocytes (1.2 - 3.4 /CUMM) 1.0 L Absolute Monocytes (0.10 - 0.60 /CUMM) 0.5 Absolute Eosinophils (0.0 - 0.7 /CUMM) 0 Absolute Basophils (0.0 - 0.2 /CUMM) 0 Diagnostic Data EKG Results 07/14/2017: Sinus rhythm, VPC, EL, LAFB, abnormal RWP, LVH with minor repolarization abnormalities. CXR Results 07/13/2017: No acute cardiopulmonary process. Other Results Bilateral lower extremity Doppler ultrasound 07/13/2017: - No evidence of acute deep venous thrombosis. There is a linear focus of intermediate echogenicity within the mid left femoral vein which remains fully compressible. I favor this to reflect a normal venous valve. A small focus of recanalized chronic thrombus is felt to be much less likely. - There is a Tao cyst on the right side measuring up to 0.8 x 2.7 x 1.4 cm. Assessment/Plan Assessment/Plan [id number] w/ hx of morbid obesity, HTN, HLD, hypothyroidism, COPD, pulmonary nodules, GERD, previous esophageal food impaction / GE ring February 2015, bladder wall repair 2012, nephrolithiasis, disabling lumbosacral spinal stenosis s/p decompressive lumbosacral laminectomy 02/05/2010 w/ IVC filter placed given high risk for DVT/pulmonary embolism and positive troponin felt secondary to a Type II IA following clearance after a negative pharmacologic stress test 2009, iliofemoral DVT w/ bilateral ileocaval thrombosis s/p angioplasty and lysis in December-January 2012 2/2 multiple vasc procedures w/o evidence of hypercoagulable state, ASIF w/ uremic symptoms following intravascular depletion/ ARB administration, chronic warfarin AC, previous adm for suspected IV contrast reaction (02/04-02/07/2016), & chronic venous stasis of lower extremities w/ chronic edema who was sent to the ED by her excel specialist (Ricci Rajput M.D.) for E/M worsening LE edema over the past couple of months, despite attempts at OP Rx. Recommendation: * Continue on telemetry with strict inputs/outputs and daily weights. * Continue IV furosemide 40 mg twice daily and reassess the need for further IV diuresis in the a.m. * Echocardiogram to reassess left ventricular systolic/diastolic function, degree of LVH, PA pressures, etc. * Continue her outpatient antihypertensive regimen of losartan 100 mg daily and amlodipine 10 mg daily. * Continue warfarin anticoagulation for previous DVT. Note therapeutic INR at 2.28. * Continue levothyroxine. * Check magnesium and glycosylated hemoglobin A1c. * DVT prophylaxis being addressed by anticoagulation for previous DVT. Further recommendations will follow, Thank you. Consult Acknowledgment - Thank you for your consult request.
--- NOTE | 2017-07-14 18:14 | ECHOCARDIOGRAM REPORT ---
DMITRIY, MAY Age: 81 : 1935 Gender: F Exam Date: 07/14/2017 08:23 Exam Location: [facility] Ht (in): 65 Wt (lb): 230 BSA: 2.24 BP: 150 / 70 Ordering Physician: Kelsey Kiran MD Referring Physician: Kelsey Kiran MD Technologist: Juan Patrick RDCS Room Number: Indications: Shortness of breath Rhythm: Sinus Technical Quality: Very technically difficult study, Poor FINDINGS Left Ventricle Normal size left ventricle. Mild concentric left ventricular hypertrophy. No obvious regional wall motion abnormalities. Normal left ventricular ejection fraction visually estimated at 65%. Abnormal relaxation filling pattern of the left ventricle for age (stage 1 diastolic dysfunction). Right Ventricle Upper normal limits for size right ventricle. Right Atrium Normal right atrial size. Left Atrium Normal left atrial size. Mitral Valve Mildly calcified mitral valve annulus. Mitral valve mildly thickened. No mitral regurgitation. Aortic Valve Aortic valve not well visualized. Mild aortic sclerosis. No aortic valve stenosis or regurgitation. Tricuspid Valve Structurally normal tricuspid valve. Trace tricuspid regurgitation. Unable to estimate the right ventricular systolic pressure. Pulmonic Valve Not well visualized. No pulmonic regurgitation. Pericardium No pericardial effusion. Great Vessels Upper normal size aortic root. Dilated inferior vena cava. CONCLUSIONS Normal size left ventricle. Mild concentric left ventricular hypertrophy. Normal left ventricular ejection fraction visually estimated at 65%. Abnormal relaxation filling pattern of the left ventricle for age (stage 1 diastolic dysfunction). Upper normal limits for size right ventricle. Normal atrial size. Trace tricuspid regurgitation. Unable to estimate the right ventricular systolic pressure. Dilated inferior vena cava. Blayne Mcdonnell M.D. (Electronically Signed) Final Date: 14 July 2017 18:13 MEASUREMENTS (Male / Female) Normal Values 2D ECHO LV Diastolic Diameter PLAX 4.2 cm 4.2 - 5.9 / 3.9 - 5.3 cm LV Systolic Diameter PLAX 2.7 cm 2.1 - 4.0 cm LV Fractional Shortening PLAX 35.7 % 25 - 46 % LV Ejection Fraction 2D Teich 65.6 % IVS Diastolic Thickness 1.1 cm LVPW Diastolic Thickness 1.1 cm LV Relative Wall Thickness 0.5 RV Internal Dim ED PLAX 3.8 cm 1.9 - 3.8 cm LVOT Diameter 1.8 cm Aortic Root Diameter 3.5 cm LA Systolic Diameter LX 3.0 cm 3.0 - 4.0 / 2.7 - 3.8 cm LA Volume 36.0 cm 18 - 58 / 22 - 52 cm Ascending Aorta Diameter 3.4 cm DOPPLER AV Peak Velocity 152.0 cm/s AV Peak Gradient 9.2 mmHg AV Mean Velocity 102.0 cm/s AV Mean Gradient 5.0 mmHg AV Velocity Time Integral 32.3 cm LVOT Peak Velocity 108.0 cm/s LVOT Peak Gradient 4.7 mmHg LVOT Mean Velocity 64.5 cm/s LVOT Mean Gradient 2.0 mmHg LVOT Velocity Time Integral 26.5 cm LVOT Stroke Volume 67.4 cm AV Area Cont Eq vti 2.1 cm AV Area Cont Eq pk 1.8 cm MV Peak Velocity 165.0 cm/s MV Peak Gradient 10.9 mmHg MV Mean Velocity 90.0 cm/s MV Mean Gradient 4.0 mmHg Mitral E Point Velocity 86.4 cm/s Mitral A Point Velocity 140.0 cm/s Mitral E to A Ratio 0.6 MV PHT Velocity 118.0 cm/s MV Deceleration Mchenry 671.0 cm/s MV Pressure Half Time 52.8 ms MV Area PHT 4.2 cm MV Deceleration Time 408.0 ms PV Peak Velocity 116.0 cm/s PV Peak Gradient 5.4 mmHg PV Mean Velocity 82.7 cm/s PV Mean Gradient 3.0 mmHg PV Velocity Time Integral 24.3 cm
[2017-07-14 22:58] VITALS: BP 122/70
[2017-07-15 07:02] VITALS: BP 108/67
[2017-07-15 09:18] LABS: PT 28.8 SEC (9.4-12.5)
--- NOTE | 2017-07-15 10:33 | PN- Att Addend ---
Attending Addendum Attending Brief Note Denies any CP or SOB. Has noticed some superficial Vital Signs Date Time Temp Pulse Resp B/P B/P Pulse O2 O2 Flow FiO2 Mean Ox Delivery Rate 07/15 0810 110/64 07/15 0810 110/64 07/15 0702 98.3 60 20 108/67 07/14 2258 99.4 83 18 122/70 91 Room Air 07/14 1456 97.8 85 20 122/70 93 Room Air Intake & Output 07/15 1600 07/15 0800 07/15 0000 Intake Total Output Total 200 200 Balance -200 -200 Output, Urine 200 200 Patient 94.829 kg Weight GEN: pleasant lady, AAOx3 HEENT: moist mucosa LUNGS: CTAB HEART: s1s2 EXT: + small areas of skin breakage Labs/Diagnostics: reviewed Ms. Head is an 79-year-old white female with a a PMH of history of morbidly obese, hyperlipidemia, hypertension, COPD not on home oxygen, GERD, food impaction in esophagus, bladder wall repair 2012, nephrolithiasis, lumbo sacral spinal stenosis repair 2009 status post decompressive lumbosacral laminectomy with IVC filter placement, hypothyroidism, iliofemoral deep vein thrombosis status post angioplasty and lysis secondary to multiple vascular procedures who is on Coumadin since 2011, chronic venous stasis of lower extremitieswas sent in by Rip Rajput for evaluation of worsening lower extremity edema despite attempts at outpatient treatment CXR didnt reveal pulmonary edema, Doppler US neg for DVT. Likely d/c today
[2017-07-15 14:00] VITALS: BP 106/60
[2017-07-15 23:00] VITALS: BP 124/68
[2017-07-16 08:25] LABS: PT 33.9 SEC (9.4-12.5)
--- NOTE | 2017-07-16 08:31 | PN- Housestaff ---
Subjective Follow-up For: Bilateral lower extremity edema Dyspnea on exertion HTN Tele-Events Since Last Visit: SR, HR 60s-90s with PACs Subjective: Patient was seen and examined at bedside. She is resting comfortably. She had no acute events overnight. Early left lower lytic is weeping slightly, she still has lower extremity edema. She is able to ambulate with her walker at baseline. She denies any chest pain, shortness of breath, nausea, vomiting, fever, chills. Review of Systems Constitutional: Reports: no symptoms. EENTM: Reports: no symptoms. Cardiovascular: Reports: no symptoms. Respiratory: Reports: no symptoms. Gastrointestinal: Reports: no symptoms. Genitourinary: Reports: no symptoms. Musculoskeletal: Reports: no symptoms. Objective Last 24 Hrs of Vital Signs/I&O Vital Signs Date Time Temp Pulse Resp B/P B/P Pulse O2 O2 Flow FiO2 Mean Ox Delivery Rate 07/15 2300 98.5 80 20 124/68 90 07/15 1400 98.2 82 20 106/60 91 Room Air Intake & Output 07/16 1600 07/16 0800 07/16 0000 Intake Total Output Total 250 400 Balance -250 -400 Output, Urine 250 400 Patient 210 lb Weight Weight Bed scale Measurement Method Physical Exam General Appearance: Alert, Oriented X3, Cooperative, No Acute Distress Skin Temp/Moisture Exam: Warm/Dry Sepsis Skin Exam (color): Normal for Ethnicity HEENT: Atraumatic Neck: Supple Cardiovascular: Regular Rate, Normal S1, Normal S2 Lungs: Clear to Auscultation, Normal Air Movement Abdomen: Normal Bowel Sounds, Soft, No Tenderness Neurological: Normal Speech, Normal Tone, Sensation Intact Extremities: 1+ edema of the bilateral lower extremities, wound on the R posterior leg, L leg erythema and overlying lichenified skin Current Medications: Current Medications Sig/Blayne Start time Last Medication Dose Route Stop Time Status Admin Amlodipine Besylate 10 MG DAILY 07/14 0900 AC 07/15 PO 0810 Furosemide 40 MG 7:30 AM, & 4:30 PM 07/15 1630 AC 07/15 IV 1607 Furosemide 40 MG DAILY 07/13 1449 DC 07/15 IV 0809 Levothyroxine Sodium 0.088 MG DAILY AC 07/14 0700 AC 07/16 PO 0628 Losartan Potassium 100 MG DAILY 07/13 1449 AC 07/15 PO 0810 Potassium Chloride 20 MEQ ONCE ONE 07/15 1215 DC 07/15 PO 07/15 1216 1301 Warfarin Sodium 3 MG COUMADIN 1700 ONE 07/15 1700 DC 07/15 PO 07/15 1701 1607 Last 24 Hrs of Lab/Oscar Results Last 24 Hrs of Labs/Mics: Laboratory Tests 07/16/17 0720: Anion Gap 10, Estimated GFR 53 L, BUN/Creatinine Ratio 20.0 07/16/17 0625: PT 33.9 H, INR 3.08 H Assessment/Plan Assessment: 79-year-old white female with a a PMH of history of morbidly obese, hyperlipidemia, hypertension, COPD not on home oxygen, GERD, food impaction in esophagus, bladder wall repair 2012, nephrolithiasis, lumbo sacral spinal stenosis repair 2009 status post decompressive lumbosacral laminectomy with IVC filter placement, hypothyroidism, 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 Patient has a past history of venous insufficiency and chronic leg edema for years. She was evaluated in the wound care center and was asked to come to the emergency department for evaluation and hospitalization for aggressive diuresis. Vitals at the time of admission, hypertensive to 189/82; RR: 15; tachycardic to 104; saturating 94% on RA. Labs reveal normal white blood cell count of 6000, H&H of 14.5/98.2, platelet count 2 27,000. Serum chemistries were unremarkable with sodium of 140, potassium 4.1, bicarb of 30, anion gap of 7, BUN 12 with a creatinine of 0.8, TSH of 0.3 and a free T4 of 1.89 with an INR of 2.12. Last echocardiogram was done in 2009 which showed stage I diastolic dysfunction with an EF of 55%, echo on this admission shows EF 65% Assessment and plan Place patient under observation on telemetry to rule out ACS or worsening CHF exacerbation #Worsening bilateral lower extremity edema 2/2 CHF exacerbation in the setting of being hypertensive and being noncompliant with her blood pressure medications. ACS was r/o wuth trops and ECG unremarkable. Her BNP was 366. Follow-up chest x-ray showed normal pulmonary vasculature. Lungs are clear and there is no evidence of consolidation, edema, or atelectasis. No visible pleural effusion is seen. Lower extremity Dopplers showed no evidence of acute deep venous thrombosis. There is a linear focus of intermediate echogenicity within the mid left femoral vein which remains fully compressible, which was deemed to reflect a normal venous valve. Continue to watch off antibiotics for now she does not have a white blood cell count, or fevers Continue diuresis with IV Lasix 40 mg daily, will be converted to PO today and discharged home Strict I's and O's Cardiology recommendations appreciated will be instructed to follow-up at the wound care center after discharge #Hypertension - Uncontrolled on admission 2/2 medication noncompliance, as patient stopped Continue her home dose of amlodipine 10 mg daily and losartan 100 mg daily which is equivalent to 40 mg of olmesartan. #History of DVTs INR: 3.08 Patient instructed to resume normal dose of Coumadin at home. #Hypothyroidism Continue levothyroxine 88 MCG daily TSH, FT4 WNL. DVT prophylaxis On warfarin Diet CHF CODE STATUS Full Problem List: 1. Peripheral edema 2. Chronic venous stasis dermatitis Pain Ratin Pain Location: none Pain Goal: Remain pain free Pain Plan: pain pathway Tomorrow's Labs & Rationales: none Consulting Request: Consulting Specialty: Cardiology
[2017-07-16 08:40] VITALS: BP 124/68
[2017-07-16] MEDS ORDERED: FUROSEMIDE40 M1 PO (13:58)
[2017-07-16] MEDS ORDERED: COZAAR100 M1 PO (13:58)
[2017-07-16] MEDS ORDERED: NORVASC10 M1 PO (13:58)
== END 2017-07-16 16:17 | DRG 293 ==
LOC: ERH 10:31 → 1NO 12:33 → ERHI 12:33 → 1NO 12:48 → ENRESERV 19:08 → ENTRNSPT 20:07 → EDTRNSPT 20:26 → EDTRNSPTSTS 20:26 → EDTRNSPT 20:56 → CMPTRNSPT 21:15 → 1NO 21:21 → ERHI 21:21 → 1NO 07-15 12:48
PROVIDERS: Emergency Medicine; Internal Medicine Infectious Disease; Student in an Organized Health Care Education/Training Program
DX: I11.0 Hypertensive heart disease with heart failure (principal); E66.01 Morbid (severe) obesity due to excess calories; J44.9 Chronic obstructive pulmonary disease, unspecified; I44.7 Left bundle-branch block, unspecified; I50.33 Acute on chronic diastolic (congestive) heart failure; Z79.01 Long term (current) use of anticoagulants; Z68.37 Body mass index [BMI] 37.0-37.9, adult; E78.5 Hyperlipidemia, unspecified; K21.9 Gastro-esophageal reflux disease without esophagitis; E03.9 Hypothyroidism, unspecified; I87.2 Venous insufficiency (chronic) (peripheral); M71.21 Synovial cyst of popliteal space [Baker], right knee; R91.8 Other nonspecific abnormal finding of lung field; Z88.8 Allergy status to other drugs, medicaments and biological substances; Z90.89 Acquired absence of other organs; Z90.710 Acquired absence of both cervix and uterus; Z91.14 Patient's other noncompliance with medication regimen; Z86.718 Personal history of other venous thrombosis and embolism
CPT/HCPCS: 1NP; 36415; 36592; 71045; 82436; 93005; 93010; 93306; 93970; 97110-GP; 97116-GP; 97161-GP; G8978-GP; G8979-GP; G8980-GP; J1940; J3490

== ENCOUNTER 2017-07-20 09:27 | Inpatient (IN) | payer OTHER, BC, MEDICARE ==
[~2017-07-20] VITALS: Ht 162.6 cm; Wt 94.0 kg
[~2017-07-20 09:27] MED LIST changes: +COZAAR100 M1 PO; +FUROSEMIDE40 M1 PO; +NORVASC10 M1 PO
[2017-07-20 10:01] LABS: ABSOLUTE BASOPHIL COUNT 0 /CUMM (0.0-0.2); ABSOLUTE EOSINOPHIL COUNT 0 /CUMM (0.0-0.7); ABSOLUTE GRANULOCYTE CT 13.5 /CUMM (1.4-6.5); ABSOLUTE LYMPH COUNT 0.8 /CUMM (1.2-3.4); ABSOLUTE MONOCYTE COUNT 0.7 /CUMM (0.10-0.60); BASOPHIL % 0.1 % (0.0-2.0); EOSINOPHIL % 0.2 % (0-5); GRANULOCYTE % 90.1 % (42.2-75.2); MEAN CORPUSCULAR HGB 32.1 PG (27.0-31.0); MEAN CORPUSCULAR HGB CONC 32.9 G/DL (33.0-37.0); MEAN CORPUSCULAR VOLUME 97.4 FL (81.0-99.0); PLATELET COUNT 228 /CUMM (130-400); RBC DISTRIBUTION WIDTH 13.5 % (11.5-14.5); RED BLOOD CELL CT 4.68 /CUMM (4.20-5.40)
[2017-07-20 10:06] LABS: HEMATOCRIT 45.6 % (37-47)
[2017-07-20 10:15] LABS: PTT 51 SEC (25-37)
[2017-07-20 10:24] LABS: PT 76.5 SEC (9.4-12.5)
--- NOTE | 2017-07-20 10:38 | ED DYSPNEA/ASTHMA COMPLAINT ---
See Addendum History of Present Illness General Chief Complaint: General Adult Stated Complaint: BLOODY STOOL Source: patient, old records, EMS Exam Limitations: poor historian Vital Signs & Intake/Output Vital Signs & Intake/Output Vital Signs Date Time Temp Pulse Resp B/P B/P Pulse O2 O2 Flow FiO2 Mean Ox Delivery Rate 07/20 1049 97.6 99 30 149/72 93 Nasal 4.0L Cannula 07/20 1030 93 Nasal 4.0L Cannula 07/20 0932 95 Nasal 4.0L Cannula 07/20 0929 98.3 111 20 164/70 88 Room Air Allergies Coded Allergies: indomethacin (UNKNOWN 07/09/15) Reconcile Medications Amlodipine Besylate (Norvasc) 10 MG TABLET 10 MG PO DAILY htn . Furosemide 40 MG TABLET 1 TAB PO DAILY fluid overload . Levothyroxine Sodium (Synthroid) 88 MCG TABLET 1 TAB PO DAILY AC THYROID ( Reported) Losartan (Cozaar) 100 MG TABLET 100 MG PO DAILY htn . Warfarin Sodium (Coumadin) 3 MG TABLET 1 TAB PO DAILY dvt (Reported) Triage Note: PT BIBA FROM HOME FOR ? GIB. PT STATES THERE WAS BLOOD IN THE TOILET AND ON THE FLOOR AFTER GOING TO THE BATHROOM, UNSURE OF ORIGIN OF BLOOD. PT IS ON COUMADIN, LAST INR 2.8. PT WAS DISCHARGED FROM [facility] ON SUNDAY 07/16, WAS ADMITTED FOR "WATER RETENTION". UPON EMS ARRIVAL PT HAD A RA SAT OF 84%, PT RECEIVED DUONEB AND 125MG SOLUMEDROL, SATS IMPROVED. PT ARRIVES TO ED A/OX3. DENIES CHF HISTORY. RA SATS 88%, PT PLACED ON 4L NC SATS UP TO 95%. PT DENIES ANY PAIN. PA STUDENT IN FOR EVAL. Triage Nurses Notes Reviewed? yes Onset: Abrupt Duration: day(s): Timing: recent history Severity: moderate, severe Activities at Onset: none HPI: 81-year-old female comes into the emergency room for further evaluation of shortness of breath coughing and blood while she was on the toilet. Patient was recently admitted here in the hospital and was discharged a few days ago. She reports that she's had increasing shortness of breath and coughing. No mucus production. Increased weakness. She reports that today she had blood clots in the toilet but does not know exactly where they came from. She denies any bowel movement. She denies any fever. Ambulance reports that her oxygen saturation was 84% on room air when they arrived. She is not on oxygen chronically. (Terence Schaefer) Past History Travel History Traveled to [place] past 21 day No Medical History Any Pertinent Medical History? 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 Hepatic: NONE Renal: nephrolithiasis Musculoskeletal: spinal stenosis chronic right lower extremity pain with ambulatory dysfunction Psychiatric: NONE Endocrine: HYPOTHY R/T THYROIDECTOMY Blood Disorders: DVTs in 2011 CONTROLS TECHNICIAN/Reproductive: HYSTERECTOMY History of MRSA: No History of VRE: No History of CDIFF: No Surgical History Surgical History: hysterectomy, laminectomy, s/p bladder wall repair s/p IVC filter s/p lysis and angioplasty of DVT S/P THROIDECTOMY SPINAL SURGERY FOR STENOSIS Psychosocial History Who do you live with Spouse Services at Home None What is your primary language French Tobacco Use: Never used ETOH Use: denies use Illicit Drug Use: denies illicit drug use Family History Family History, If Any: MOTHER *No pertinent family history Relation not specified for: FH: HTN (hypertension) Hx Contributory? No (Terence Schaefer) Review of Systems Review of Systems Constitutional: Reports: no symptoms. EENTM: Reports: no symptoms. Respiratory: Reports: see HPI. Cardiovascular: Reports: no symptoms. GI: Reports: see HPI. Genitourinary: Reports: no symptoms. Musculoskeletal: Reports: no symptoms. Skin: Reports: no symptoms. Neurological/Psychological: Reports: no symptoms. Hematologic/Endocrine: Reports: no symptoms. Immunologic/Allergic: Reports: no symptoms. All Other Systems: Reviewed and Negative (Terence Schaefer) Physical Exam Physical Exam General Appearance: alert, awake, moderate distress, obese Head: atraumatic Eyes: Bilateral: normal appearance. Ears, Nose, Throat: normal ENT inspection, hearing grossly normal Neck: normal inspection Respiratory: decreased breath sounds, crackles, respiratory distress (moderate) Cardiovascular: regular rate/rhythm, tachycardia Gastrointestinal: soft Extremities: erythema to left lower extremity, pedal edema, Open wound to right lower extremity, pedal edema, no surrounding erythema, no purulent discharge, approximately 1 cm in diameter Neurologic/Psych: awake, alert, oriented x 3 Skin: see above Core Measures ACS in differential dx? Yes CVA/TIA Diagnosis No Sepsis Present: No Sepsis Focused Exam Completed? No (Jean Carlos BURROWS,Terence) Progress Differential Diagnosis: asthma, AMI, bronchitis, costochondritis, CHF, COPD, musculoskeletal pain, pericarditis, pulmonary embolism, pneumonia, pneumothorax, rib fracture, unstable angina, lower GI bleed, diverticulosis, angiodysplasia, hemorrhoids, Plan of Care: Orders Procedure Date/time Status PROTHROMBIN TIME 07/21 0600 Active CBC WITHOUT DIFFERENTIAL 07/21 0600 Active Regular Diet 07/20 L Complete Nothing by Mouth 07/20 D Active CBC WITHOUT DIFFERENTIAL 07/20 1600 Active BASIC ELECTROLYTES PLUS BUN&CR 07/20 1600 Active LACTIC ACID 07/20 1440 Active Pathway - chart 07/20 1217 Active TRC EVALUATION (GEN) 07/20 1150 Active Lab Add-on Test 07/20 1149 Active STREP PNEUMO URINARY ANTIGEN 07/20 1149 Active LEGIONELLA URINARY ANTIGEN 07/20 1149 Active LOWER RESPIRATORY CULTURE 07/20 1149 Active Pathway - chart 07/20 1148 Active Code Status 07/20 1148 Active RAPID VIRAL INFLUENZA A 07/20 1140 Active LACTIC ACID 07/20 1140 Active Patient Data 07/20 1126 Active OXYGEN SETUP (GEN) 07/20 1110 Active Saline Lock 07/20 1110 Active Admit to inpatient 07/20 1110 Active Vital Signs 07/20 1110 Active Activity/Ambulation 07/20 1110 Active Code Status 07/20 1110 Complete BLOOD CULTURE 07/20 1106 Active TYPE & SCREEN (NOT X-MATCH) 07/20 1106 Active Add-on Test (ER Only) 07/20 1045 Active TYPE & SCREEN (NOT X-MATCH) 07/20 0954 Active TROPONIN LEVEL 07/20 0942 Complete PARTIAL THROMBOPLASTIN TIME 07/20 0942 Complete PROTHROMBIN TIME 07/20 0942 Complete COMPREHENSIVE METABOLIC PANEL 07/20 0942 Complete CBC WITHOUT DIFFERENTIAL 07/20 0942 Complete EKG 07/20 0942 Active Lab Add-on Test 07/20 UNK Active VTE Mechanical Prophylaxis 07/20 UNK Active Vital Signs 07/20 UNK Active Intake & Output 07/20 UNK Active Current Medications Sig/Blayne Start time Last Medication Dose Stop Time Status Admin Pantoprazole Sodium 40 MG DAILY 07/21 0900 AC (Protonix) Levothyroxine Sodium 0.088 MG DAILY AC 07/21 0700 AC (Synthroid) Potassium Chloride 40 MEQ ONCE ONE 07/20 1230 UNVr (K-Dur) 07/20 1231 Sodium Chloride 1,000 ML ONCE ONE 07/20 1115 AC (Normal Saline 0.9%) 07/20 1754 Laboratory Tests 07/20/17 0954: Anion Gap 15, Estimated GFR 27 L, BUN/Creatinine Ratio 31.7 H, Glucose 145 H, Calcium 9.4, Total Bilirubin 1.8 H, AST 15, ALT 24, Alkaline Phosphatase 117, Troponin I < 0.01, Total Protein 6.8, Albumin 3.5, Globulin 3.3, Albumin/ Globulin Ratio 1.1, PT 76.5 *H, INR 6.88 *H, APTT 51 H, CBC w Diff MAN DIFF ORDERED, RBC 4.68, MCV 97.4, MCH 32.1 H, MCHC 32.9 L, RDW 13.5, MPV 10.0, Gran % 90.1 H, Lymphocytes % 5.3 L, Monocytes % 4.3, Eosinophils % 0.2, Basophils % 0.1, Absolute Granulocytes 13.5 H, Segmented Neutrophils 82 H, Band Neutrophils 3, Absolute Lymphocytes 0.8 L, Lymphocytes 6 L, Monocytes 9, Absolute Monocytes 0.7 H, Absolute Eosinophils 0, Absolute Basophils 0, Platelet Estimate VERIFIED BY SMEAR, Normocytic RBCs VERIFIED, Normochromic RBCs VERIFIED 07/20/17 0942: Ref Lab Test Result Pending Microbiology 07/20 1149 URINE ROUT: Legionella Antigen - ORD 07/20 1149 URINE ROUT: Streptococcus pneumoniae Antigen (M - ORD 07/20 1149 LOWER RESP: Respiratory Culture - ORD 07/20 1149 LOWER RESP: Gram Stain - ORD 07/20 1140 NASOPHARYN: Influenza Virus A & B Rapid Smear - ORD 07/20 1106 BLOOD: Blood Culture - ORD 07/20 1106 BLOOD: Blood Culture - ORD Diagnostic Imaging: Viewed by Me: Radiology Read. Discussed w/RAD: Radiology Read. Radiology Impression: PATIENT: LIEN IZAGUIRRE PRESENT AGE: 81 PATIENT ACCOUNT NO: [id number] : 34 LOCATION: [facility] ORDERING PHYSICIAN: Terence BURROWS SERVICE DATE: 07/20/17 EXAM TYPE: RAD - XRY-PORTABLE CHEST XRAY EXAMINATION: XR PORTABLE CHEST CLINICAL INFORMATION: Shortness of breath. COMPARISON: 07/13/2017 TECHNIQUE: Portable frontal view of the chest was obtained. FINDINGS: Reticular dependent bibasilar opacities are most compatible with atelectasis. No appreciable effusion. No focal consolidation or pneumothorax. Double density overlying the cardiac silhouette corresponds to the known hiatal hernia. Cardiac silhouette is normal in size. Bones are osteopenic. 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 IMPRESSION: Dependent bibasilar opacities, most compatible with dependent atelectasis. DICTATED BY: Fidel Oneil MD DATE/TIME DICTATED:07/20/171050 EDUCATION REVIEWER:HO DATE/TIME TRANSCRIBED:07/20/171050 CONFIDENTIAL, DO NOT COPY WITHOUT APPROPRIATE AUTHORIZATION. <Electronically signed in Other Vendor System> SIGNED BY: Fidel Oneil MD 07/20/171058 Initial ED EKG: normal sinus rhythm, rate (103) (Terence Schaefer) Departure Departure Disposition: STILL A PATIENT Condition: Stable Clinical Impression Primary Impression: Lower GI bleed Secondary Impressions: Acute kidney injury, Hypoxia, Pneumonia Referrals: Mahendra OSORIO,Maryellen Lagos (PCP/Family) Departure Forms: Customer Survey General Discharge Information Admission Note Spoke With: Mikey OSORIO,Vetsa Documentation of Exam: Documentation of any treatments & extenuating circumstances including Concerns Regarding Discharge (functional status, medication knowledge or non-compliance, living conditions, etc.) that warrant an admission rather than observation: Patient will require GI consultation. IV fluids. Supplemental oxygen. IV antibiotics. High risk. Medically not safe for discharge.repeat labs. pt will require greater then 72 hours of care likeley. (Terence Schaefer) PA/SHELLFISH SHUCKER Co-Sign Statement Statement: ED Attending supervision documentation- x I saw and evaluated the patient. I have also reviewed all the pertinent lab results and diagnostic results. I agree with the findings and the plan of care as documented in the PA's/SHELLFISH SHUCKER's documentation. LGI bleeding with hypoxia / pneumonia [] I have reviewed the ED Record and agree with the PA's/SHELLFISH SHUCKER's documentation. [] Additions or exceptions (if any) to the PAs/SHELLFISH SHUCKER's note and plan are summarized below: [] (Dilma OSORIO,Alo) Critical Care Note Critical Care Note Critical Care Time: 30-74 min (35) (Jean Carlos BURROWS,Terence)
--- NOTE | 2017-07-20 10:59 | RADIOLOGY REPORT ---
EXAMINATION: XR PORTABLE CHEST CLINICAL INFORMATION: Shortness of breath. COMPARISON: 07/13/2017 TECHNIQUE: Portable frontal view of the chest was obtained. FINDINGS: Reticular dependent bibasilar opacities are most compatible with atelectasis. No appreciable effusion. No focal consolidation or pneumothorax. Double density overlying the cardiac silhouette corresponds to the known hiatal hernia. Cardiac silhouette is normal in size. Bones are osteopenic. 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 IMPRESSION: Dependent bibasilar opacities, most compatible with dependent atelectasis.
--- NOTE | 2017-07-20 11:29 | History & Physical ---
Kelsey Kiran 07/20/17 1127: General Information and HPI MD Statement: I have seen and personally examined LIEN IZAGUIRRE and documented this H&P. The patient is a 81 year old F who presented with a patient stated chief complaint of [shortness of breath, GI bleed]. 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 According to the patient she started to experience worsening shortness of breath , and purulent productive cough associated with chills (no documented fevers) after she was discharged home 4 days ago. She states that she never filled her prescriptions as her [facility] never carried them,a dn she had to transfer the meds to [facility], which she never picked up until Monday07/18/17. She satets that her shortness of breath has been the same perhaps a little worse with coughing spells. She denies any pleuritic chest pain, worsening of her lower extremity edema. She states taht it was not until las night, that she first noticed bleeding per rectum that she describes as dark red blood with clots. States taht she never had a bowel movement. However, noticed blood that is difficult for her to quantify, in the toilet bowel. Patient denies any abdominal pain, diarrhea, previous episodes of passing blood. She denies any dysuria, however does endorse nasuea, and a decreased PO intake for the past few days. She denies any CP, palpitations, dizziness, lighheadedness. Allergies/Medications Allergies: Coded Allergies: indomethacin (UNKNOWN 07/09/15) Compliance With Home Meds: UNKNOWN Past History Travel History Traveled to [place] past 21 day No Medical History Cardiovascular: hypertension, hyperlipidemia Respiratory: COPD, mild, no history of oxygen requirement, monitored off inhalers remote history of pulmonary nodules which are not being followed routinely Gastrointestinal: GERD, recurrent food impaction in esophagus Hepatic: NONE Renal: nephrolithiasis Musculoskeletal: spinal stenosis chronic right lower extremity pain with ambulatory dysfunction Psychiatric: NONE Endocrine: HYPOTHY R/T THYROIDECTOMY Blood Disorders: DVTs in 2011 [employer]IC/Reproductive: 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 spouse Services at Home: None Primary Language: Sinhala ETOH Use: denies use Illicit Drug Use: denies illicit drug use Functional Ability ADLs Independent: dressing, eating, toileting, bathing. Ambulation: walker IADLs Independent: shopping, housework, food prep, telephone, medication admin. Unknown: finances, transportation. Review of Systems Review of Systems Constitutional: Reports: chills, weakness. Denies: fever, malaise. EENTM: Denies: visual changes. Cardiovascular: Denies: chest pain, orthopena, palpitations, peripheral edema. Respiratory: Reports: cough, short of breath, sputum production (yellow). Denies: orthopnea. GI: Reports: nausea, bloody stool. Denies: abdominal pain, constipation, diarrhea, vomiting. Genitourinary: Reports: no symptoms. Neurological/Psychological: Denies: headache, numbness, tingling, tremors, unable to move lower ext, unable to move upper ext. Hematologic/Endocrine: Reports: bleeding. Exam & Diagnostic Data Last 24 Hrs of Vital Signs/I&O Vital Signs Date Time Temp Pulse Resp B/P B/P Pulse O2 O2 Flow FiO2 Mean Ox Delivery Rate 07/20 1049 97.6 99 30 149/72 93 Nasal 4.0L Cannula 07/20 1030 93 Nasal 4.0L Cannula 07/20 0932 95 Nasal 4.0L Cannula 07/20 09 98.3 111 20 164/70 88 Room Air Intake & Output 07/20 1600 07/20 0800 07/20 0000 Intake Total Output Total Balance Patient 235 lb Weight Weight Estimated Measurement Method Physical Exam General Appearance Alert, Oriented X3, Cooperative, No Acute Distress HEENT Atraumatic, PERRLA, EOMI, Mucous Membr. moist/pink Neck Supple, No JVD, No thryomegaly, No LAD Cardiovascular Normal S1, Normal S2, No Murmurs, TACHYCARDIC Lungs MILD BIBASILAR RONHCI Abdomen Normal Bowel Sounds, Soft, No Tenderness Neurological Normal Speech, Strength at 5/5 X4 Ext, Normal Tone, Sensation Intact, Cranial Nerves 3-12 NL, Reflexes 2+ Extremities b/l chronic venous stasis changes; 1-2+ edema in le Vascular Normal Pulses, Pulses Symmetrical Rectal patient stated she already ahd a KAUSHAL done; spoke with ED PA, she had dark blood on exam Last 24 Hrs of Labs/Oscar: Laboratory Tests 07/20/17 0954: Anion Gap 15, Estimated GFR 27 L, BUN/Creatinine Ratio 31.7 H, Glucose 145 H, Calcium 9.4, Total Bilirubin 1.8 H, AST 15, ALT 24, Alkaline Phosphatase 117, Troponin I < 0.01, Total Protein 6.8, Albumin 3.5, Globulin 3.3, Albumin/ Globulin Ratio 1.1, PT 76.5 *H, INR 6.88 *H, APTT 51 H, CBC w Diff MAN DIFF ORDERED, RBC 4.68, MCV 97.4, MCH 32.1 H, MCHC 32.9 L, RDW 13.5, MPV 10.0, Gran % 90.1 H, Lymphocytes % 5.3 L, Monocytes % 4.3, Eosinophils % 0.2, Basophils % 0.1, Absolute Granulocytes 13.5 H, Segmented Neutrophils 82 H, Band Neutrophils 3, Absolute Lymphocytes 0.8 L, Lymphocytes 6 L, Monocytes 9, Absolute Monocytes 0.7 H, Absolute Eosinophils 0, Absolute Basophils 0, Platelet Estimate VERIFIED BY SMEAR, Normocytic RBCs VERIFIED, Normochromic RBCs VERIFIED Microbiology 07/20 1105 BLOOD: Blood Culture - ORD 07/20 1105 BLOOD: Blood Culture - ORD Diagnostic Data CXR Results FINDINGS: Reticular dependent bibasilar opacities are most compatible with atelectasis. No appreciable effusion. No focal consolidation or pneumothorax. Double density overlying the cardiac silhouette corresponds to the known hiatal hernia. Cardiac silhouette is normal in size. Bones are osteopenic. 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 IMPRESSION: Dependent bibasilar opacities, most compatible with dependent atelectasis. 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 Vitals at the time of admission tachycardic to 99, afebrile respiratory rate of 28 blood pressure 149/72 saturating 88% on room air after which she was placed on 4 L of oxygen via nasal cannula saturations bumped up to 93%. Labs pertinent for leukocytosis with a white blood cell count of 15,000, H&H of 15.0/25.6, platelet count of 229,000. Serum chemistries pertinent for sodium of 139, potassium 3.3, bicarb 32, anion gap 15, BUN 57 and a creatinine of 1.8. Total bili elevated to 1.8, AST/ALT 15/24, alk phos of 117, first of troponin negative less than 0.01. Her INR was supratherapeutic at 6.88. Chest x-ray revealed: Reticular dependent bibasilar opacities are most compatible with atelectasis. No appreciable effusion. No focal consolidation or pneumothorax. In the ER patient received thousand milligrams IV 10 vancomycin, normal saline thousand mL 1, Lasix 40 mg IV 1, ceftaz thousand milligrams IV 1 and Lasix 40 mg IV 1. Assessment and plan Admit patient to General Medicine. #Acute hypoxic respiratory failure 2/2 CAP (though patient was in the hospital recently, will cover her for CA pathogens - of note patient is afebrile) Will start him on Ceftriaxone and Azithromycin F/U LRC, urinary antigen for legionella, and strep PNA Hydrate with NS @[id number] #Lower GI bleed - Painless, most likely 2/2 hemmorhoids and or diverticular bleed in the setting of suprtherapeutic INR - Maintain 2 large bore IVs - Patient already received 5mg of SC Vit K - F/U INR - CBC Q8 hrs to monito H&H to maintain Hb>7 (no hx of CAD) - Start on Protonix 40mg IV - GI consult was placed with ER. F/U recs - F/U recs - Meanwhile, keep NPO. #HTN Given GI bleed, and ASIF will hold Lasix, BP medications including Amlodipine, Losartan #ASIF Most likely pre-renal. - BEP @ 4:00pm for Cr #Supratehrpeutic INR ? cause. SHe deneis taking any other medications taht could alter the INR siince she has been on this dose for so long. S/P 5mg Vit K SC Will hold Coumadin and F/U INR tmrw. #Hypothryoidism Continue levothyroidsim 88mcg daily. DVT prophylaxis Warfarin - supratherapeutic Diet NPO for now Code Status Full Code As Ranked By This Provider Problem List: 1. Pneumonia 2. Lower GI bleed 3. Acute kidney injury 4. Hypoxia Core Measures/Misc (12/18) Acute Coronary Syndrome ACS Diagnosis: No Congestive Heart Failure Congestive Heart Failure Diagnosis No Cerebrovascular Accident CVA/TIA Diagnosis: No VTE (View Protocol) VTE Risk Factors Age>40 No Mechanical VTE Prophylaxis d/t N/A MechProphylax Ordered No VTE Pharm Prophylaxis d/t NA PharmProphylax ordered Sepsis (View protocol) Sepsis Present: No Resident Review Statement Resident Statement: admitted by resident Blane Hood MD 07/20/17 9749: General Information and HPI Allergies/Medications Home Med list Amlodipine Besylate (Norvasc) 10 MG TABLET 10 MG PO DAILY htn . Azithromycin 250 MG TABLET 250 MG PO DAILY pneumonia Cefuroxime Axetil (Cefuroxime) 250 MG TABLET 250 MG PO Q12 pneumonia Furosemide 20 MG TABLET 1 TAB PO DAILY Fluid overload Levothyroxine Sodium (Synthroid) 88 MCG TABLET 1 TAB PO DAILY AC THYROID ( Reported) Losartan (Cozaar) 100 MG TABLET 100 MG PO DAILY htn . Melatonin 5 MG TABLET 5 MG PO AT BEDTIME PRN sleep Warfarin Sodium (Coumadin) 3 MG TABLET 1 TAB PO DAILY dvt (Reported) Attending MD Review Statement Attending Statement Attending MD Statement: examined this patient, discuss w/resident/PA/CHILD SUPPORT CASE OFFICER, agreed w/resident/PA/CHILD SUPPORT CASE OFFICER, discussed with family, reviewed EMR data (avail), discussed with nursing, reviewed images, amended to note Attending Assessment/Plan: The patient is an 81 yo female with h/o COPD, HTN, GERD, h/o bladder repair ( 2012), hypothyroid, and iliofemoral DVT (s/p angioplasty and lysis secondary to multiple procedures) and IVC filter placement (on chronic coumadin since 2011) who was just discharged from [facility] on 07/16 after stay for LE edema/ CHF exacerbation. She stated to resident that she had not gotten her medications filled until 07/18 in evening and had noted increased dyspnea with cough (non- productive here, however productive at home) along with some chills (no fever). She also noted painless rectal bleeding today filling the bowl with red blood. She presented at ED and noted to have significantly elevated INR (6.88) and elevated Cr 1.8 c/w ASIF. She had not been on recent antibiotics and stated her po intake was poor. No chest pain, palpitations, etc. She had distant h/o colonoscopy and had known hemorrhoids and diverticulosis. Physical Exam: VS: T 98.3, P 111-99, R 20-30, BP 165/70-149/72, PO 88% RA-93% on 4L HEENT: eyes- PERRLA, EOMI lili- dry mucosa Neck: no JVD/bruits Chest: diminished breath sounds at bases, occasional scattered rhonchi Cor: RRR nl S1, S2 w/o murm Abd: BS+, soft, NT Ext: 1+ edema bilaterally w/o tenderness, bilateral venous stasis changes Neuro: alert & oriented x 3, poor historian, non-focal exam Labs/Test- as above. Impression/Plan: #Acute Hypoxic Respiratory Failure/?Bibasilar Pneumonia- with onset of cough productive of sputum, leukocytosis. No fever noted. CXR showing ?bibasilar infiltrates vs atelectasis. Was given Vanco/Ceftaz in ED for "hospital acquired pneumonia". Plan: Admit to medicine service. Will cadet-culture- sputum, blood, etc. Follow WBC. Urine testing per pneumonia protocol Will treat with Ceftriaxone/Zithromax as community acquired infection. #Acute Lower Gastrointestinal Bleeding- secondary to supratherapeutic INR. ? Diverticular vs hemorrhoidal. Plan: GI consult Dr. Zhao (obtained). Serial H/H. Vitamin K 10 mg SQ given. Follow INR and keep Hgb > 7. Eventual colonoscopy (if continues bleeding). #Coagulopathy- patient has been taking Coumadin same dose for some time and INR was therapeutic upon discharge several days ago. Unclear why it increased. The patient has been on no meds that would interact. Did state her po intake has been poor. Has IVC filter (h/o DVT). Plan: As above, hold Coumadin and follow INR. #ASIF- most likely secondary to Furosemide and poor po intake. Plan: Agree with gentle IV hydration and follow-up BEP. If not improving consider renal-bladder US. Check urinalysis and culture (had some pyuria prior stay). Hold Losartan /Lasix. #HTN- was on Amlodipine/Losartan. Unclear if cough began after Losartan. Plan: Holding Losartan/Lasix- may need to restart Amlodipine if BP increased. #Hypothyroidism- on Levothyroxine. Plan: Continue Levothyroxine. #Leg Ulcers- superficial and dry. Plan: Wound care consult (Nursing).
--- NOTE | 2017-07-20 13:17 | Cons- Gastroenterology ---
General Information and HPI Consulting Request Date of Consult: 07/20/17 Requested By: MARKOS Rasmussen Reason for Consult: Hematochezia. Change in bowel habits. Source of Information: patient, old records Exam Limitations: poor historian History of Present Illness: Ms. Khan is an 81 year old female with a history of COPD and a DVT on coumadin who was recently discharged from who presented to today with complaints of hematochezia and increasing shortness of breath. She notes that last night after moving her bowels she noted a significant amount of blood in the bowel and she saw that again this morning. The bleeding was not associated with any abdominal pain or rectal pain and she denies any significant straining or constipation. She has also been without any abdominal pain with eating, heartburn, vomiting, dypshagia or melena. In the ER she was hemodynamically stable and was only noted to be guaiac positive from below without any gross blood and her hgb was normal at 14. She was noted to have an elevated INR of 6.88 and she was also hypoxic on admission and was noted to have bibasilar ateclectasis on a chest x ray without any obvious infiltrate. She was given vitamin K for the elevated INR and supplemental O2 and she was also started on IV antibiotics and was admitted to the medical service for further managment. Since arrival to the ER she has not had any further bleeding nor has she had any hemodynamic instablity. Allergies/Medications Allergies: Coded Allergies: indomethacin (UNKNOWN 07/09/15) Home Med List: Amlodipine Besylate (Norvasc) 10 MG TABLET 10 MG PO DAILY htn . Furosemide 40 MG TABLET 1 TAB PO DAILY fluid overload . Levothyroxine Sodium (Synthroid) 88 MCG TABLET 1 TAB PO DAILY AC THYROID ( Reported) Losartan (Cozaar) 100 MG TABLET 100 MG PO DAILY htn . Warfarin Sodium (Coumadin) 3 MG TABLET 1 TAB PO DAILY dvt (Reported) Current Medications: Current Medications Sig/Blayne Start time Last Medication Dose Route Stop Time Status Admin Ceftazidime 0 .STK-MED ONE 07/20 1133 DC .ROUTE Ceftazidime 1,000 MG ONCE ONE 07/20 1115 DC IV 07/20 1116 Furosemide 0 .STK-MED ONE 07/20 1035 DC IV Furosemide 40 MG ONCE ONE 07/20 1015 DC 07/20 IV 07/20 1016 1046 Phytonadione 0 .STK-MED ONE 07/20 1133 DC .ROUTE Phytonadione 5 MG ONE ONE 07/20 1130 DC SC 07/20 1131 Sodium Chloride 1,000 ML ONCE ONE 07/20 1115 AC IV 07/20 1754 Vancomycin HCl 0 .STK-MED ONE 07/20 1133 DC .ROUTE Vancomycin HCl 1,000 MG ONCE ONE 07/20 1115 UNir Dextrose/Water 250 ML IV 07/20 1214 Past History Travel History Traveled to [place] past 21 day No Medical History Cardiovascular: hypertension, hyperlipidemia Respiratory: COPD, mild, no history of oxygen requirement, monitored off inhalers remote history of pulmonary nodules which are not being followed routinely Gastrointestinal: GERD, recurrent food impaction in esophagus Hepatic: NONE Renal: nephrolithiasis Musculoskeletal: spinal stenosis chronic right lower extremity pain with ambulatory dysfunction Psychiatric: NONE Endocrine: HYPOTHY R/T THYROIDECTOMY Blood Disorders: DVTs in 2011 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 spouse Services at Home: None Primary Language: [place]dean ETOH Use: denies use Illicit Drug Use: denies illicit drug use Functional Ability ADLs Independent: dressing, eating, toileting, bathing. Ambulation: walker IADLs Independent: shopping, housework, food prep, telephone, medication admin. Unknown: finances, transportation. Review of Systems Review of Systems Constitutional: Reports: malaise, weakness. Denies: fever, unexplained weight loss. EENTM: Denies: no symptoms. Cardiovascular: Reports: peripheral edema. Denies: orthopena, syncope. Respiratory: Reports: cough, short of breath, sputum production, wheezing. GI: Reports: see HPI. Genitourinary: Denies: no symptoms. Musculoskeletal: Denies: no symptoms. Skin: Denies: no symptoms. Neurological/Psychological: Denies: no symptoms. Hematologic/Endocrine: Reports: bleeding. Immunologic/Allergic: Denies: no symptoms. All Other Systems: Reviewed and Negative Exam & Diagnostic Data Vital Signs and I&O Vital Signs Date Time Temp Pulse Resp B/P B/P Pulse O2 O2 Flow FiO2 Mean Ox Delivery Rate 07/20 1049 97.6 99 30 149/72 93 Nasal 4.0L Cannula 07/20 1030 93 Nasal 4.0L Cannula 07/20 0932 95 Nasal 4.0L Cannula 07/20 0929 98.3 111 20 164/70 88 Room Air Intake & Output 07/20 1600 07/20 0400 07/19 040 Intake Total Output Total Balance Patient 235 lb Weight Weight Estimated Measurement Method Physical Exam General Appearance: well developed/nourished, no apparent distress, alert, awake , comfortable Head: atraumatic, normal appearance Eyes: Bilateral: normal appearance. Ears, Nose, Throat: normal pharynx, normal ENT inspection Neck: normal inspection, supple, full range of motion Respiratory: decreased breath sounds, wheezing Cardiovascular: regular rate/rhythm Gastrointestinal: normal bowel sounds, soft, non-tender, no organomegaly Rectal: deferred, guaiac positive stool per ED Back: normal inspection Extremities: pedal edema Neurologic/Psych: no motor/sensory deficits, awake, alert, oriented x 3 Results Pertinent Lab Results: Laboratory Tests 07/20 0954 Chemistry Sodium (137 - 145 mmol/L) 139 Potassium (3.5 - 5.1 mmol/L) 3.3 L Chloride (98 - 107 mmol/L) 91 L Carbon Dioxide (22 - 30 mmol/L) 33 H Anion Gap (5 - 16) 15 BUN (7 - 17 mg/dL) 57 H Creatinine (0.5 - 1.0 mg/dL) 1.8 H Estimated GFR (>60 ml/min) 27 L BUN/Creatinine Ratio (7 - 25 %) 31.7 H Glucose (65 - 99 mg/dL) 145 H Calcium (8.4 - 10.2 mg/dL) 9.4 Total Bilirubin (0.2 - 1.3 mg/dL) 1.8 H AST (14 - 36 U/L) 15 ALT (9 - 52 U/L) 24 Alkaline Phosphatase (<127 U/L) 117 Troponin I (< 0.11 ng/ml) < 0.01 Total Protein (6.3 - 8.2 g/dL) 6.8 Albumin (3.5 - 5.0 g/dL) 3.5 Globulin (1.9 - 4.2 gm/dL) 3.3 Albumin/Globulin Ratio (1.1 - 2.2 %) 1.1 Coagulation PT (9.4 - 12.5 SEC) 76.5 *H INR (0.90 - 1.19) 6.88 *H APTT (25 - 37 SEC) 51 H Hematology CBC w Diff MAN DIFF ORDERED WBC (4.8 - 10.8 /CUMM) 15.0 H RBC (4.20 - 5.40 /CUMM) 4.68 Hgb (12.0 - 16.0 G/DL) 15.0 Hct (37 - 47 %) 45.6 MCV (81.0 - 99.0 FL) 97.4 MCH (27.0 - 31.0 PG) 32.1 H MCHC (33.0 - 37.0 G/DL) 32.9 L RDW (11.5 - 14.5 %) 13.5 Plt Count (130 - 400 /CUMM) 228 MPV (7.4 - 10.4 FL) 10.0 Gran % (42.2 - 75.2 %) 90.1 H Lymphocytes % (20.5 - 51.1 %) 5.3 L Monocytes % (1.7 - 9.3 %) 4.3 Eosinophils % (0 - 5 %) 0.2 Basophils % (0.0 - 2.0 %) 0.1 Absolute Granulocytes (1.4 - 6.5 /CUMM) 13.5 H Segmented Neutrophils (42.2 - 75.2 %) 82 H Band Neutrophils (0.0 - 5.0 %) 3 Absolute Lymphocytes (1.2 - 3.4 /CUMM) 0.8 L Lymphocytes (20.5 - 51.1 %) 6 L Monocytes (1.7 - 9.3 %) 9 Absolute Monocytes (0.10 - 0.60 /CUMM) 0.7 H Absolute Eosinophils (0.0 - 0.7 /CUMM) 0 Absolute Basophils (0.0 - 0.2 /CUMM) 0 Platelet Estimate (ADEQUATE) VERIFIED BY SMEAR Normocytic RBCs VERIFIED Normochromic RBCs VERIFIED Assessment/Plan Assessment/Recommendations: Assessment: Mr. Khan is an 81 year old female who presents with hematochezia of uncertain etiology, but considering her lack of pain or significant fall in her hgb and lack of gross blood on rectal exam I suspect she may have just bled from hemorrhoids that were exacerbated to bleed by her supratherapuetic INR of nearly 7. It is also possible she could be having a diverticular bleed, but if that was the case I would expect some fall in her hgb. Her last colonoscopy was in 2008 that only showed diverticulsosis and hemorrhoids, but as this was almost 10 years ago an occult malignancy is also possible and this should be rule out by a repeat colonoscopy. A repeat colonoscopy though doesn't necessarily need to be done as an inpatient if the bleeding stops as it seems to have now. Furthermore, considering her respiratory distress I would only pursue a colonsocopy now if life threatening bleeding ensues. Other possibiliites could be bleeding from avms, a dieulafoys lesion or colitis, but colitis is less likely without any pain and a rapid transit upper GI bleed is also unlikely considering how stable she is. Recommendations: 1. Correct INR with a goal of 2-3, but if bleeding persists with an elevated INR would then compltely reverse her. 2. Hold coumadin for now 3. Follow CBC q8hr and transfuse as needed to maintain a hgb > 7 or as per cardiology recommendations 4. Maintain 2 large bore IVs at all times 5. Notify GI for signs of hemodynamically significant bleeding. 6. Avoid nsaids 7. Would investigate if she recently had antibiotics which may have effected her INR 8. As she already has an IVC filter would also find out if she still needs to be on coumadin. 9. Will tentatively plan for an outpatient colonoscopy, but consideration will be given to do it as an inpatient if life threatening bleeding ensues or if bleeding persists in spite of reversal of her INR. Would otherwise recommend her respiratory status be maximized before pursuing any invasive procedures that would require sedation that could further compromise her respiratory status. I will continue to follow this patient and make further recommendations based on her clinical course and resuts of repeat blood work. Problem List: 1. COPD 2. Deep venous thrombosis of lower extremity 3. Lower GI bleed Copies To: Sathya OSORIO,Blayne Masterson; Mahendra OSORIO,Maryellen Lagos Consult Acknowledgment - Thank you for your consult request.
[2017-07-20 14:18] VITALS: BP 140/70
[2017-07-20 16:25] LABS: ABSOLUTE BASOPHIL COUNT 0 /CUMM (0.0-0.2); ABSOLUTE EOSINOPHIL COUNT 0 /CUMM (0.0-0.7); ABSOLUTE LYMPH COUNT 0.2 /CUMM (1.2-3.4); ABSOLUTE MONOCYTE COUNT 0.2 /CUMM (0.10-0.60); BASOPHIL % 0 % (0.0-2.0); EOSINOPHIL % 0 % (0-5); HEMATOCRIT 43.6 % (37-47); MEAN CORPUSCULAR HGB 31.4 PG (27.0-31.0); MEAN CORPUSCULAR HGB CONC 31.6 G/DL (33.0-37.0); MEAN CORPUSCULAR VOLUME 99.3 FL (81.0-99.0); MEAN PLATELET VOLUME 10.7 FL (7.4-10.4); PLATELET COUNT 237 /CUMM (130-400); RBC DISTRIBUTION WIDTH 13.5 % (11.5-14.5); RED BLOOD CELL CT 4.39 /CUMM (4.20-5.40); WHITE BLOOD CELL COUNT 12.3 /CUMM (4.8-10.8)
[2017-07-20 16:26] LABS: GRANULOCYTE % 97.2 % (42.2-75.2)
--- NOTE | 2017-07-20 16:39 | Admission Certification ---
Admission Certification Certification Statement - As attending physician, I certify that at the time of - admission, based on clinical presentation, severity of - symptoms, need for further diagnostic testing and - therapeutic interventions, and risk of adverse outcomes - without in-hospital treatment, in my clinical assessment, - this patient requires an acute hospital stay for a minimum - of two nights or longer. I have also considered psychsocial - factors such as support system, advanced age, financial - issues, cognitive issues, and failed out-patient treatments, - past re-admission history, safety of patient, and lack of - compliance as applicable. Specific rationale supporting this admission is: The patient presents with acute bright red rectal bleeding (?hemorrhoidal/ diverticular) that filled toilet bowl. Supratherapeutic INR 6.6, dyspnea and cough with leukocytosis - possible bibasilar infiltrates on CXR. Needs admission for serial H/H, Vit K- hold coumadin, GI consult, IV Abx given for possible pneumonia.
[2017-07-20 22:04] VITALS: BP 134/64
[2017-07-21 01:11] LABS: ABSOLUTE BASOPHIL COUNT 0 /CUMM (0.0-0.2); ABSOLUTE EOSINOPHIL COUNT 0 /CUMM (0.0-0.7); ABSOLUTE GRANULOCYTE CT 11.4 /CUMM (1.4-6.5); ABSOLUTE LYMPH COUNT 0.3 /CUMM (1.2-3.4); ABSOLUTE MONOCYTE COUNT 0.3 /CUMM (0.10-0.60); BASOPHIL % 0 % (0.0-2.0); EOSINOPHIL % 0 % (0-5); HEMATOCRIT 40.1 % (37-47); MEAN CORPUSCULAR HGB 32.2 PG (27.0-31.0); MEAN CORPUSCULAR HGB CONC 32.8 G/DL (33.0-37.0); MEAN CORPUSCULAR VOLUME 98.2 FL (81.0-99.0); MEAN PLATELET VOLUME 10.3 FL (7.4-10.4); PLATELET COUNT 237 /CUMM (130-400); RBC DISTRIBUTION WIDTH 13.3 % (11.5-14.5); RED BLOOD CELL CT 4.08 /CUMM (4.20-5.40)
[2017-07-21 07:10] VITALS: BP 140/68
--- NOTE | 2017-07-21 07:35 | PN- Housestaff ---
Yamileth Jauregui MD,[facility] 07/21/17 0735: Subjective Follow-up For: Acute hypoxic respiratory failure Supratehrpeutic INR Lower GI bleed HTN Hypothryoidism Complaints: cough Subjective: Patient was comfortabely lying in the bed. She is still complaining of productive cough. Patient remained afebrile overnight. Tachycardic this morning with heart of 96. Stable blood pressure. Review of Systems Constitutional: Denies: chills, fever. Cardiovascular: Denies: chest pain, palpitations. Respiratory: Denies: cough, short of breath. Gastrointestinal: Denies: abdominal pain, nausea, vomiting. Musculoskeletal: Denies: back pain, joint pain. Objective Last 24 Hrs of Vital Signs/I&O Vital Signs Date Time Temp Pulse Resp B/P B/P Pulse O2 O2 Flow FiO2 Mean Ox Delivery Rate 07/21 0710 97.6 96 18 140/68 95 07/21 0000 94 Nasal 3.0L Cannula 07/20 2204 97.4 88 18 134/64 94 Nasal 4.0L Cannula 07/20 1911 Nasal 4.0L Cannula 07/20 1908 97 Nasal 4.0L Cannula 07/20 1600 94 Nasal 4.0L Cannula 07/20 1423 92 Nasal 4.0L Cannula 07/20 1418 98.1 95 20 140/70 91 Nasal 4.0L Cannula 07/20 1049 97.6 99 30 149/72 93 Nasal 4.0L Cannula 07/20 1030 93 Nasal 4.0L Cannula 07/20 0932 95 Nasal 4.0L Cannula 07/20 0929 98.3 111 20 164/70 88 Room Air Intake & Output 07/21 1600 07/21 0800 07/21 0000 Intake Total 120 1320 Output Total 500 400 Balance -380 920 Intake, IV 520 Intake, Oral 120 800 Number 0 Bowel Movements Output, Urine 500 400 Patient 210 lb Weight Weight Bed scale Measurement Method Physical Exam General Appearance: Alert, Oriented X3, Cooperative, No Acute Distress HEENT: Atraumatic, PERRLA Neck: Supple, No JVD Cardiovascular: Regular Rate, Normal S1, Normal S2, No Murmurs Lungs: CONGESTED LUNGS, Bibasilar crackles Abdomen: Normal Bowel Sounds, Soft, No Tenderness Neurological: Normal Speech, Normal Tone, Sensation Intact Extremities: No Clubbing, No Cyanosis, No Edema Vascular: Normal Pulses Current Medications: Current Medications Sig/Blayne Start time Last Medication Dose Route Stop Time Status Admin Albuterol Sulfate 3 ML Q4P PRN 07/20 1930 AC INH Azithromycin 500 MG DAILY 07/21 0900 AC 07/21 Dextrose/Water 250 ML IV 0804 Ceftazidime 0 .STK-MED ONE 07/20 1133 DC .ROUTE Ceftazidime 1,000 MG ONCE ONE 07/20 1115 DC 07/20 IV 07/20 1116 1258 Ceftriaxone Sodium 1,000 MG 1500 07/20 1500 AC IV Ceftriaxone Sodium 1,000 MG DAILY 07/20 1259 DC 07/20 IV 1443 Furosemide 0 .STK-MED ONE 07/20 1035 DC IV Furosemide 40 MG ONCE ONE 07/20 1015 DC 07/20 IV 07/20 1016 1046 Levothyroxine Sodium 0.088 MG DAILY AC 07/21 0700 AC 07/21 PO 0805 Pantoprazole Sodium 40 MG DAILY 07/21 0900 AC 07/21 IV 0804 Phytonadione 0 .STK-MED ONE 07/20 1133 DC .ROUTE Phytonadione 5 MG ONE ONE 07/20 1130 DC 07/20 SC 07/20 1131 1152 Potassium Chloride 40 MEQ ONCE ONE 07/20 2015 DC 07/20 PO 07/20 2016 2043 Potassium Chloride 40 MEQ ONCE ONE 07/20 1845 CAN PO 07/20 1846 Potassium Chloride 40 MEQ ONCE ONE 07/20 1400 DC 07/20 PO 07/20 1401 1354 Potassium Chloride 0 .STK-MED ONE 07/20 1350 DC PO Potassium Chloride 0 .STK-MED ONE 07/20 1347 DC PO Potassium Chloride 40 MEQ ONCE ONE 07/20 1230 CAN PO 07/20 1231 Sodium Chloride 1,000 ML Q13H 07/20 1430 DC 07/20 IV 07/21 0329 1436 Sodium Chloride 1,000 ML ONCE ONE 07/20 1115 DC 07/20 IV 07/20 1754 1258 Vancomycin HCl 0 .STK-MED ONE 07/20 1133 DC .ROUTE Vancomycin HCl 1,000 MG ONCE ONE 07/20 1115 DC 07/20 Dextrose/Water 250 ML IV 07/20 1214 1338 Last 24 Hrs of Lab/Oscar Results Last 24 Hrs of Labs/Mics: Laboratory Tests 07/21/17 0703: Sodium Pending, Potassium Pending, Chloride Pending, Carbon Dioxide Pending, Anion Gap Pending, BUN Pending, Creatinine Pending, BUN/Creatinine Ratio Pending , PT Pending, INR Pending, CBC w Diff Pending, WBC Pending, RBC Pending, Hgb Pending, Hct Pending, MCV Pending, MCH Pending, MCHC Pending, RDW Pending, Plt Count Pending, MPV Pending, Gran % Pending, Lymphocytes % Pending, Monocytes % Pending, Eosinophils % Pending, Basophils % Pending, Absolute Granulocytes Pending, Absolute Lymphocytes Pending, Absolute Monocytes Pending, Absolute Eosinophils Pending, Absolute Basophils Pending 07/21/17 0050: CBC w Diff MAN DIFF ORDERED, RBC 4.08 L, MCV 98.2, MCH 32.2 H, MCHC 32.8 L, RDW 13.3, MPV 10.3, Gran % 95.0 H, Lymphocytes % 2.5 L, Monocytes % 2.5, Eosinophils % 0, Basophils % 0, Absolute Granulocytes 11.4 H, Segmented Neutrophils 91 H, Band Neutrophils 3, Absolute Lymphocytes 0.3 L, Lymphocytes 2 L, Monocytes 4, Absolute Monocytes 0.3, Absolute Eosinophils 0, Absolute Basophils 0, Platelet Estimate ADEQUATE, Polychromasia 1+, Hypochromic- Microcytic 1+, Poikilocytosis 1+, Ovalocytes 1+, Fld Total RBCs Counted 100 07/20/17 1658: Urine Color YEL, Urine Clarity CLEAR, Urine pH 5.5, Ur Specific [place] 1.020, Urine Protein NEG, Urine Ketones NEG, Urine Nitrite NEG, Urine Bilirubin NEG, Urine Urobilinogen 0.2, Ur Leukocyte Esterase NEG, Ur Microscopic SEDIMENT EXAMINED, Urine RBC RARE, Ur Epithelial Cells RARE, Urine Hemoglobin MOD H, Urine Glucose NEG 07/20/17 1547: Lactic Acid 1.1 07/20/17 1547: Anion Gap 11, Estimated GFR 29 L, BUN/Creatinine Ratio 30.0 H, CBC w Diff NO MAN DIFF REQ, RBC 4.39, MCV 99.3 H, MCH 31.4 H, MCHC 31.6 L, RDW 13.5, MPV 10.7 H, Gran % 97.2 H, Lymphocytes % 1.3 L, Monocytes % 1.5 L, Eosinophils % 0, Basophils % 0, Absolute Granulocytes 12.0 H, Absolute Lymphocytes 0.2 L, Absolute Monocytes 0.2, Absolute Eosinophils 0, Absolute Basophils 0 07/20/17 1242: Lactic Acid 1.6 07/20/17 0954: Anion Gap 15, Estimated GFR 27 L, BUN/Creatinine Ratio 31.7 H, Glucose 145 H, Calcium 9.4, Total Bilirubin 1.8 H, AST 15, ALT 24, Alkaline Phosphatase 117, Troponin I < 0.01, Total Protein 6.8, Albumin 3.5, Globulin 3.3, Albumin/ Globulin Ratio 1.1, PT 76.5 *H, INR 6.88 *H, APTT 51 H, CBC w Diff MAN DIFF ORDERED, RBC 4.68, MCV 97.4, MCH 32.1 H, MCHC 32.9 L, RDW 13.5, MPV 10.0, Gran % 90.1 H, Lymphocytes % 5.3 L, Monocytes % 4.3, Eosinophils % 0.2, Basophils % 0.1, Absolute Granulocytes 13.5 H, Segmented Neutrophils 82 H, Band Neutrophils 3, Absolute Lymphocytes 0.8 L, Lymphocytes 6 L, Monocytes 9, Absolute Monocytes 0.7 H, Absolute Eosinophils 0, Absolute Basophils 0, Platelet Estimate VERIFIED BY SMEAR, Normocytic RBCs VERIFIED, Normochromic RBCs VERIFIED 07/20/17 0942: Ref Lab Test Result Pending Microbiology 07/20 165 URINE ROUT: Legionella Antigen - COMP 07/20 1658 URINE ROUT: Streptococcus pneumoniae Antigen (M - COMP 07/20 1610 NASOPHARYN: Influenza Virus A & B Rapid Smear - COMP 07/20 1255 BLOOD: Blood Culture - RECD 07/20 1242 BLOOD: Blood Culture - RECD 07/20 1149 LOWER RESP: Respiratory Culture - COLB 07/20 1149 LOWER RESP: Gram Stain - COLB Lines/Diet/Fluids Lines: none Restraints: none Assessment/Plan Assessment: 79-year-old white female with a PMH of history of morbidly obese, hyperlipidemia, hypertension, COPD not on home oxygen, GERD, food impaction in esophagus, bladder wall repair 2012, nephrolithiasis, lumbo sacral spinal stenosis repair 2009 status post decompressive lumbosacral laminectomy with IVC filter placement, hypothyroidism, 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 Vitals at the time of admission tachycardic to 99, afebrile respiratory rate of 28 blood pressure 149/72 saturating 88% on room air after which she was placed on 4 L of oxygen via nasal cannula saturations bumped up to 93%. Labs pertinent for leukocytosis with a white blood cell count of 15,000, H&H of 15.0/25.6, platelet count of 229,000. Serum chemistries pertinent for sodium of 139, potassium 3.3, bicarb 32, anion gap 15, BUN 57 and a creatinine of 1.8. Total bili elevated to 1.8, AST/ALT 15/24, alk phos of 117, first of troponin negative less than 0.01. Her INR was supratherapeutic at 6.88. Chest x-ray revealed: Reticular dependent bibasilar opacities are most compatible with atelectasis. No appreciable effusion. No focal consolidation or pneumothorax. In the ER patient received thousand milligrams IV 10 vancomycin, normal saline thousand mL 1, Lasix 40 mg IV 1, ceftaz thousand milligrams IV 1 and Lasix 40 mg IV 1. Patient was admitted on general medicine floor for the management of following problems Acute hypoxic respiratory failure 2/2 CAP (though patient was in the hospital recently, will cover her for CA pathogens - of note patient is afebrile). Patient was started on Ceftriaxone and Azithromycin. Negative for Urinary antigen for legionella, and strep PNA. We will follow-up other cultures. Hydrate with NS @[id number]. Patient does not require oxygen at baseline. Currently requiring 3 L of oxygen. We will try to taper this oxygen. We should plan to get a CT scan F oxygen saturation is not improving. Lower GI bleed Painless, most likely 2/2 hemmorhoids and or diverticular bleed in the setting of suprtherapeutic INR. Patient also has history of diverticulosis and hemorrhoids that were seen in colonoscopy that was done in 2008. GI does not plan to do any significant intervention for now unless patient is bleeding actively. We will follow-up morning hemoglobin. Patient has 2 large bore IVs. Patient already received 5mg of SC Vit K. GI consult was obtained. CBC Q8 hrs to monito H&H to maintain Hb>7 (no hx of CAD). Patient is on Protonix 40mg IV. History of Hypertension Secondary to GI bleeding and acute ASIF, Lasix, BP medications including Amlodipine, Losartan were on hold. His blood pressure remained stable, we will restart the medications today SAIF Most likely pre-renal, BUN/creatinine ratio more than 20 BUN elevation could be secondary to GI bleeding Yesterday's creatinine 1.7, and improved to 1.3 this morning Patient's baseline creatinine is 0.8 0.9, patient was rehydrated Supratehrpeutic INR ? cause. SHe deneis taking any other medications that could alter the INR since she has been on this dose for so long. S/P 5mg Vit K SC was given in emergency department Current INR this morning 5.86 decreased from 6.88 Currently Coumadin on hold and will follow up with an INR next day Hypothryoidism Continue levothyroidsim 88mcg daily. DVT prophylaxis Warfarin on hold Mechanical prophylaxis Diet Patient is currently on clear liquid diet Code Status Full Code Problem List: 1. Acute kidney injury Pain Ratin Pain Location: NA Pain Goal: Pain 4 or less Pain Plan: Continue current pain medications Tomorrow's Labs & Rationales: CBC for hemoglobin BEP for renal function INR DVT/Prophylaxis: Blane Santos MD 07/21/17 1702: Attending MD Review Statement Attending Statement Attending MD Statement: examined this patient, discuss w/resident/PA/BANBURY OPERATOR, agreed w/resident/PA/BANBURY OPERATOR, discussed with family, reviewed EMR data (avail), discussed with nursing, discussed with case mgmt, amended to note Attending Assessment/Plan: The patient was seen and discussed with house staff, nursing, case management and her . The patient notes difficulty swallowing that has become worse. Review of chart patient has had last EGD 04/18 and has Schatzke's ring that was dilated by Dr. Gallegos. Will get swallow evaluation. The patient states she cuts up food small, however since last admission has had difficultly eating and thus poor po intake. verifies this. INR decreasing and H/H stable. No planned lower GI procedure. Cr trending down. wishes UGI/swallowing to be addressed during hospital stay. Advised him that cannot do procedure when INR is high and has ?pneumonia. Will continue antibiotics at present. PT consult. Follow H/H and stools. Consider EGD next week pending swallowing ability. Of note, the chart indicated that the patient has h/o CHF on last admission when she presented with LE edema. ECHO shows normal EF and grade 1 diastolic dysfunction. There is no acute clinical CHF on this admission, however this patient may have chronic diastolic CHF (stage 1, preserved ejection fraction CHF ). Her previous Cardiology consult note from Dr. Mcdonnell does not mention CHF.
[2017-07-21 07:37] LABS: ABSOLUTE BASOPHIL COUNT 0 /CUMM (0.0-0.2); ABSOLUTE EOSINOPHIL COUNT 0 /CUMM (0.0-0.7); ABSOLUTE GRANULOCYTE CT 12.5 /CUMM (1.4-6.5); ABSOLUTE LYMPH COUNT 0.4 /CUMM (1.2-3.4); ABSOLUTE MONOCYTE COUNT 0.5 /CUMM (0.10-0.60); BASOPHIL % 0 % (0.0-2.0); EOSINOPHIL % 0 % (0-5); HEMATOCRIT 42.1 % (37-47); MEAN CORPUSCULAR HGB 32.5 PG (27.0-31.0); MEAN CORPUSCULAR HGB CONC 32.8 G/DL (33.0-37.0); PLATELET COUNT 233 /CUMM (130-400); RBC DISTRIBUTION WIDTH 13.8 % (11.5-14.5); RED BLOOD CELL CT 4.25 /CUMM (4.20-5.40); WHITE BLOOD CELL COUNT 13.4 /CUMM (4.8-10.8)
--- NOTE | 2017-07-21 10:22 | PN- Gastroenterology ---
Assessment/Plan GI Assessment/Recommendations: Assessment: Ms. Head is an 81 year old female who presented yesterday with hematochezia and a supratherapeutic INR and was ultimately admitted with a pneumonia/bronchitis for which she is currently on IV antibiotics and supplemental oxygen. Her INR is still significantly elevated at 5.8, but as she is no longer having any hematochezia I don't necessarily feel it needs to be reversed further and would just recommend holding her coumadin now unitl her INR gets back into the therapeutic range. I am not certain why her INR went to 7, but as she hasn't had any significant changes to her medications or diet recently I suspect she may have been just taking too much coumadin out of confusion. I suspect the bleeding she had was from hemorrhoids considering she has not had a significant fall in her hgb and the bleeding hasn't persisted. It still may be reasonable to repeat a colonoscopy to assess for an occult malignancy as the cause of her bleeding considering her last colonoscopy was in 2008, but I would recommend doing this as an outpatient once her respiratory status has been optimized. Recommedations: 1. Hold coumadin until her INR falls in the therapeutic range (ie. 2-3). 2. Follow daily INR and would only active reverse her coumadin with vit K and FFP if she has recurrent bleeding. 3. Advance diet as tolearted (speech and swallow eval pending) 4. Notify GI for signs of overt hemodynamically significant GI bleeding. 5. D/c IV protonix 6. Follow daily CBC and transfuse as needed to maintain hgb > 7 or as per cardiology recommendations. 6. Will tentaively plan for a repeat outpatient colonoscopy, but will do as an inpatient if hemodynamically significant bleeding recurs in spite of reversing her INR. Will sign off at this time and would ask that she be referred to follow up with GI as an outpatient to arrange for a repeat colonoscopy and that GI be re- contacted for any recurrent bleeding or any new GI issues that may arise on this hospitalization. Problem List: 1. Deep venous thrombosis of lower extremity 2. Lower GI bleed Subjective Subjective: Pt complains of a cough and some shortness of breath, but she has not had any further rectal bleeding. She is tolerating a liquid diet. s/p vitamin K adminitstration yesterday, but no FFP was given. Objective Vital Signs and I&Os Vital Signs Date Time Temp Pulse Resp B/P B/P Pulse O2 O2 Flow FiO2 Mean Ox Delivery Rate 07/21 0800 93 Nasal 4.0L Cannula 07/21 0710 97.6 96 18 140/68 95 07/21 0000 94 Nasal 3.0L Cannula 07/20 2204 97.4 88 18 134/64 94 Nasal 4.0L Cannula 07/20 1911 Nasal 4.0L Cannula 07/20 1908 97 Nasal 4.0L Cannula 07/20 1600 94 Nasal 4.0L Cannula 07/20 1423 92 Nasal 4.0L Cannula 07/20 1418 98.1 95 20 140/70 91 Nasal 4.0L Cannula 07/20 1049 97.6 99 30 149/72 93 Nasal 4.0L Cannula 07/20 1030 93 Nasal 4.0L Cannula Intake & Output 07/21 1600 07/21 0400 07/20 1600 07/20 0400 07/19 1600 07/19 0400 Intake Total 120 1320 Output Total 900 Balance 120 420 Intake, IV 520 Intake, Oral 120 800 Number 0 Bowel Movements Output, Urine 900 Patient 210 lb 209 lb Weight Weight Bed scale Bed scale Measurement Method Physical Exam General Appearance: well developed/nourished, mild distress Head: atraumatic, normal appearance Neck: normal inspection, supple Respiratory: decreased breath sounds, crackles Cardiovascular: regular rate/rhythm Abdomen: normal bowel sounds, soft, non-tender, no organomegaly Extremities: no edema Current Medications: Current Medications Sig/Blayne Start time Last Medication Dose Route Stop Time Status Admin Albuterol Sulfate 3 ML Q4P PRN 07/20 1930 AC INH Azithromycin 500 MG DAILY 07/21 0900 AC 07/21 Dextrose/Water 250 ML IV 0804 Benzonatate 100 MG TID 07/21 0933 AC PO Ceftazidime 0 .STK-MED ONE 07/20 1133 DC .ROUTE Ceftazidime 1,000 MG ONCE ONE 07/20 1115 DC 07/20 IV 07/20 1116 1258 Ceftriaxone Sodium 1,000 MG 1500 07/20 1500 AC IV Ceftriaxone Sodium 1,000 MG DAILY 07/20 1259 DC 07/20 IV 1443 Furosemide 0 .STK-MED ONE 07/20 1035 DC IV Levothyroxine Sodium 0.088 MG DAILY AC 07/21 0700 AC 04/20 PO 0805 Nystatin 1 JOURDAN BID 07/21 0900 AC 07/21 TOP 1005 Pantoprazole Sodium 40 MG DAILY 07/21 0900 AC 07/21 IV 0804 Phytonadione 0 .STK-MED ONE 07/20 1133 DC .ROUTE Phytonadione 5 MG ONE ONE 07/20 1130 DC 07/20 SC 07/20 1131 1152 Potassium Chloride 40 MEQ ONCE ONE 07/20 2014 DC 07/20 PO 07/20 Potassium Chloride 40 MEQ ONCE ONE 07/20 1845 CAN PO 07/20 1846 Potassium Chloride 40 MEQ ONCE ONE 07/20 1400 DC 07/20 PO 07/20 1401 1354 Potassium Chloride 0 .STK-MED ONE 07/20 1350 DC PO Potassium Chloride 0 .STK-MED ONE 07/20 1347 DC PO Potassium Chloride 40 MEQ ONCE ONE 07/20 1230 CAN PO 07/20 1231 Sodium Chloride 1,000 ML Q13H 07/20 1430 DC 07/20 IV 07/21 0329 1436 Sodium Chloride 1,000 ML ONCE ONE 07/20 1115 DC 07/20 IV 07/20 1754 1258 Vancomycin HCl 0 .STK-MED ONE 07/20 1133 DC .ROUTE Vancomycin HCl 1,000 MG ONCE ONE 07/20 1115 DC 07/20 Dextrose/Water 250 ML IV 07/20 1214 1338 Results Pertinent Lab Results: Laboratory Tests 07/21 07/21 0703 0050 Chemistry Sodium (137 - 145 mmol/L) 142 Potassium (3.5 - 5.1 mmol/L) 4.1 Chloride (98 - 107 mmol/L) 99 Carbon Dioxide (22 - 30 mmol/L) 35 H Anion Gap (5 - 16) 8 BUN (7 - 17 mg/dL) 50 H Creatinine (0.5 - 1.0 mg/dL) 1.3 H Estimated GFR (>60 ml/min) 39 L BUN/Creatinine Ratio (7 - 25 %) 38.5 H Coagulation PT (9.4 - 12.5 SEC) 65.0 *H INR (0.90 - 1.19) 5.86 *H Hematology CBC w Diff NO MAN DIFF REQ MAN DIFF ORDERED WBC (4.8 - 10.8 /CUMM) 13.4 H 12.0 H RBC (4.20 - 5.40 /CUMM) 4.25 4.08 L Hgb (12.0 - 16.0 G/DL) 13.8 13.1 Hct (37 - 47 %) 42.1 40.1 MCV (81.0 - 99.0 FL) 99.0 98.2 MCH (27.0 - 31.0 PG) 32.5 H 32.2 H MCHC (33.0 - 37.0 G/DL) 32.8 L 32.8 L RDW (11.5 - 14.5 %) 13.8 13.3 Plt Count (130 - 400 /CUMM) 233 237 MPV (7.4 - 10.4 FL) 10.0 10.3 Gran % (42.2 - 75.2 %) 93.0 H 95.0 H Lymphocytes % (20.5 - 51.1 %) 3.0 L 2.5 L Monocytes % (1.7 - 9.3 %) 4.0 2.5 Eosinophils % (0 - 5 %) 0 0 Basophils % (0.0 - 2.0 %) 0 0 Absolute Granulocytes (1.4 - 6.5 /CUMM) 12.5 H 11.4 H Segmented Neutrophils (42.2 - 75.2 %) 91 H Band Neutrophils (0.0 - 5.0 %) 3 Absolute Lymphocytes (1.2 - 3.4 /CUMM) 0.4 L 0.3 L Lymphocytes (20.5 - 51.1 %) 2 L Monocytes (1.7 - 9.3 %) 4 Absolute Monocytes (0.10 - 0.60 /CUMM) 0.5 0.3 Absolute Eosinophils (0.0 - 0.7 /CUMM) 0 0 Absolute Basophils (0.0 - 0.2 /CUMM) 0 0 Platelet Estimate (ADEQUATE) ADEQUATE Polychromasia 1+ Hypochromic-Microcytic 1+ Poikilocytosis 1+ Ovalocytes 1+ Other Body Source Fld Total RBCs Counted (%) 100 07/20 07/20 1658 1547 Chemistry Lactic Acid (0.7 - 2.1 mmol/L) 1.1 Urines Urine Color (YEL,AMB,STR) YEL Urine Clarity (CLEAR) CLEAR Urine pH (5.0 - 8.0) 5.5 Ur Specific [place] (1.001 - 1.035) 1.020 Urine Protein (NEG,<30 MG/DL) NEG Urine Ketones (NEG) NEG Urine Nitrite (NEG) NEG Urine Bilirubin (NEG) NEG Urine Urobilinogen (0.1 - 1.0 EU/dl) 0.2 Ur Leukocyte Esterase (NEG) NEG Ur Microscopic SEDIMENT EXAMINED Urine RBC (0 - 5 /HPF) RARE Ur Epithelial Cells (NONE,FEW) RARE Urine Hemoglobin (NEG) MOD H Urine Glucose (N MG/DL) NEG 07/20 07/20 1547 1242 Chemistry Sodium (137 - 145 mmol/L) 138 Potassium (3.5 - 5.1 mmol/L) 3.7 Chloride (98 - 107 mmol/L) 95 L Carbon Dioxide (22 - 30 mmol/L) 32 H Anion Gap (5 - 16) 11 BUN (7 - 17 mg/dL) 51 H Creatinine (0.5 - 1.0 mg/dL) 1.7 H Estimated GFR (>60 ml/min) 29 L BUN/Creatinine Ratio (7 - 25 %) 30.0 H Lactic Acid (0.7 - 2.1 mmol/L) 1.6 Hematology CBC w Diff NO MAN DIFF REQ WBC (4.8 - 10.8 /CUMM) 12.3 H RBC (4.20 - 5.40 /CUMM) 4.39 Hgb (12.0 - 16.0 G/DL) 13.8 Hct (37 - 47 %) 43.6 MCV (81.0 - 99.0 FL) 99.3 H MCH (27.0 - 31.0 PG) 31.4 H MCHC (33.0 - 37.0 G/DL) 31.6 L RDW (11.5 - 14.5 %) 13.5 Plt Count (130 - 400 /CUMM) 237 MPV (7.4 - 10.4 FL) 10.7 H Gran % (42.2 - 75.2 %) 97.2 H Lymphocytes % (20.5 - 51.1 %) 1.3 L Monocytes % (1.7 - 9.3 %) 1.5 L Eosinophils % (0 - 5 %) 0 Basophils % (0.0 - 2.0 %) 0 Absolute Granulocytes (1.4 - 6.5 /CUMM) 12.0 H Absolute Lymphocytes (1.2 - 3.4 /CUMM) 0.2 L Absolute Monocytes (0.10 - 0.60 /CUMM) 0.2 Absolute Eosinophils (0.0 - 0.7 /CUMM) 0 Absolute Basophils (0.0 - 0.2 /CUMM) 0 07/20 07/20 0954 0950 Chemistry Sodium (137 - 145 mmol/L) 139 Potassium (3.5 - 5.1 mmol/L) 3.3 L Chloride (98 - 107 mmol/L) 91 L Carbon Dioxide (22 - 30 mmol/L) 33 H Anion Gap (5 - 16) 15 BUN (7 - 17 mg/dL) 57 H Creatinine (0.5 - 1.0 mg/dL) 1.8 H Estimated GFR (>60 ml/min) 27 L BUN/Creatinine Ratio (7 - 25 %) 31.7 H Glucose (65 - 99 mg/dL) 145 H Calcium (8.4 - 10.2 mg/dL) 9.4 Total Bilirubin (0.2 - 1.3 mg/dL) 1.8 H AST (14 - 36 U/L) 15 ALT (9 - 52 U/L) 24 Alkaline Phosphatase (<127 U/L) 117 Troponin I (< 0.11 ng/ml) < 0.01 Total Protein (6.3 - 8.2 g/dL) 6.8 Albumin (3.5 - 5.0 g/dL) 3.5 Globulin (1.9 - 4.2 gm/dL) 3.3 Albumin/Globulin Ratio (1.1 - 2.2 %) 1.1 Coagulation PT (9.4 - 12.5 SEC) 76.5 *H INR (0.90 - 1.19) 6.88 *H APTT (25 - 37 SEC) 51 H Hematology CBC w Diff MAN DIFF ORDERED WBC (4.8 - 10.8 /CUMM) 15.0 H RBC (4.20 - 5.40 /CUMM) 4.68 Hgb (12.0 - 16.0 G/DL) 15.0 Hct (37 - 47 %) 45.6 MCV (81.0 - 99.0 FL) 97.4 MCH (27.0 - 31.0 PG) 32.1 H MCHC (33.0 - 37.0 G/DL) 32.9 L RDW (11.5 - 14.5 %) 13.5 Plt Count (130 - 400 /CUMM) 228 MPV (7.4 - 10.4 FL) 10.0 Gran % (42.2 - 75.2 %) 90.1 H Lymphocytes % (20.5 - 51.1 %) 5.3 L Monocytes % (1.7 - 9.3 %) 4.3 Eosinophils % (0 - 5 %) 0.2 Basophils % (0.0 - 2.0 %) 0.1 Absolute Granulocytes (1.4 - 6.5 /CUMM) 13.5 H Segmented Neutrophils (42.2 - 75.2 %) 82 H Band Neutrophils (0.0 - 5.0 %) 3 Absolute Lymphocytes (1.2 - 3.4 /CUMM) 0.8 L Lymphocytes (20.5 - 51.1 %) 6 L Monocytes (1.7 - 9.3 %) 9 Absolute Monocytes (0.10 - 0.60 /CUMM) 0.7 H Absolute Eosinophils (0.0 - 0.7 /CUMM) 0 Absolute Basophils (0.0 - 0.2 /CUMM) 0 Platelet Estimate (ADEQUATE) VERIFIED BY SMEAR Normocytic RBCs VERIFIED Normochromic RBCs VERIFIED Miscellaneous Ref Lab Test Result Pending
--- NOTE | 2017-07-21 10:43 | PN- Wound Care ---
Subjective Subjective: She readmitted for possible pneumonia having been recently discharged for treatment of CHF lower extremity edema and bilateral venous stasis ulcers. After diuresis hospitalization lower extremity ulcers are dramatically improved as his edema. Objective Vital Signs and I&Os Vital Signs Result Date Time Pulse Ox 94 07/21 1027 O2 Delivery Nasal Cannula 07/21 1027 O2 Flow Rate 2.0L 07/21 1027 B/P 140/68 07/21 0710 Temp 97.6 07/21 0710 Pulse 96 07/21 0710 Resp 18 07/21 0710 Intake & Output 07/21 0000 07/20 1600 07/20 0800 Intake Total 1320 Output Total 400 Balance 920 Intake, IV 520 Intake, Oral 800 Number 0 Bowel Movements Output, Urine 400 Patient 209 lb Weight Weight Bed scale Measurement Method Dramatic decrease in bilateral lower extremity edema. There are only 2 small residual venous stasis ulcers measuring approximately 1.5 x 0.6 cm with red fill. Is no periwound erythema exposed bone or undermining. There is no evidence of soft tissue skin infection Impression/Plan Impression/Plan Impression/Plan: 81-year-old woman presented with bilateral venous stasis ulcers in the setting of lower extremity edema due to congestive heart failure. Her edema is dramatically improved and her ulcers are markedly better. Recommend continued daily Xeroform cleansing and effective leg elevation
[2017-07-21 14:44] VITALS: BP 148/68
[2017-07-21 22:04] VITALS: BP 148/70
--- NOTE | 2017-07-22 03:32 | PN- Housestaff ---
Subjective Follow-up For: Acute hypoxic respiratory failure Supratehrpeutic INR Lower GI bleed HTN Hypothryoidism Complaints: cough Subjective: Patient was comfortabely lying in the bed. She is still complaining of residual productive cough. Patient remained afebrile overnight Review of Systems Constitutional: Denies: chills, fever. EENTM: Denies: visual changes. Cardiovascular: Denies: chest pain, palpitations. Respiratory: Denies: cough, short of breath. Gastrointestinal: Denies: abdominal pain, nausea, vomiting. Genitourinary: Denies: dysuria. Musculoskeletal: Denies: back pain. Objective Last 24 Hrs of Vital Signs/I&O Vital Signs Date Time Temp Pulse Resp B/P B/P Pulse O2 O2 Flow FiO2 Mean Ox Delivery Rate 07/22 0000 Nasal 2.0L Cannula 07/21 2204 98.2 89 20 148/70 94 Room Air 07/21 1600 94 Nasal 2.0L Cannula 07/21 1444 98.1 93 16 148/68 93 Nasal 3.0L Cannula 07/21 1027 94 Nasal 2.0L Cannula 07/21 0800 93 Nasal 4.0L Cannula 07/21 0710 97.6 96 18 140/68 95 Intake & Output 07/22 0800 07/22 0000 07/21 1600 Intake Total 480 1060 Output Total 330 550 Balance 150 510 Intake, IV 260 Intake, Oral 480 800 Output, Urine 330 550 Physical Exam General Appearance: Alert, Oriented X3, Cooperative, No Acute Distress HEENT: Atraumatic Neck: No JVD Cardiovascular: Regular Rate, Normal S1, Normal S2, No Murmurs Lungs: Clear to Auscultation Abdomen: Soft, No Tenderness Neurological: Normal Speech, Normal Tone, Sensation Intact Extremities: Legs covered with dressing, venous stasis Vascular: Normal Pulses Current Medications: Current Medications Sig/Blayne Start time Last Medication Dose Route Stop Time Status Admin Albuterol Sulfate 3 ML Q4P PRN 07/20 1930 AC INH Azithromycin 500 MG DAILY 07/21 09 AC 07/21 Dextrose/Water 250 ML IV 0804 Benzonatate 100 MG TID 07/21 0933 AC 07/21 PO 2106 Ceftriaxone Sodium 1,000 MG 1500 07/20 1500 AC 07/21 IV 1428 Levothyroxine Sodium 0.088 MG DAILY AC 07/21 0700 AC 04/20 PO 0805 Nystatin 1 JOURDAN BID 07/21 0900 AC 07/21 TOP 2107 Pantoprazole Sodium 40 MG DAILY 07/21 0900 DC 07/21 IV 0804 Patient Medication 1 ED ONE ONE 07/21 1715 [facility] ED 07/21 1716 Last 24 Hrs of Lab/Oscar Results Last 24 Hrs of Labs/Mics: Laboratory Tests 07/21/17 0703: Anion Gap 8, Estimated GFR 39 L, BUN/Creatinine Ratio 38.5 H, PT 65.0 *H, INR 5.86 *H, CBC w Diff NO MAN DIFF REQ, RBC 4.25, MCV 99.0, MCH 32.5 H, MCHC 32.8 L, RDW 13.8, MPV 10.0, Gran % 93.0 H, Lymphocytes % 3.0 L, Monocytes % 4.0, Eosinophils % 0, Basophils % 0, Absolute Granulocytes 12.5 H, Absolute Lymphocytes 0.4 L, Absolute Monocytes 0.5, Absolute Eosinophils 0, Absolute Basophils 0 Microbiology 07/21 1030 LOWER RESP: Respiratory Culture - RES 07/21 1030 LOWER RESP: Gram Stain - RES Lines/Diet/Fluids Lines: peripheral lines Restraints: none Assessment/Plan Assessment: 81-year-old white female with a PMH of history of morbidly obese, hyperlipidemia, hypertension, COPD not on home oxygen, GERD, food impaction in esophagus, bladder wall repair 2012, nephrolithiasis, lumbo sacral spinal stenosis repair 2009 status post decompressive lumbosacral laminectomy with IVC filter placement, hypothyroidism, 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 Vitals at the time of admission tachycardic to 99, afebrile respiratory rate of 28 blood pressure 149/72 saturating 88% on room air after which she was placed on 4 L of oxygen via nasal cannula saturations bumped up to 93%. Labs pertinent for leukocytosis with a white blood cell count of 15,000, H&H of 15.0/25.6, platelet count of 229,000. Serum chemistries pertinent for sodium of 139, potassium 3.3, bicarb 32, anion gap 15, BUN 57 and a creatinine of 1.8. Total bili elevated to 1.8, AST/ALT 15/24, alk phos of 117, first of troponin negative less than 0.01. Her INR was supratherapeutic at 6.88. Chest x-ray revealed: Reticular dependent bibasilar opacities are most compatible with atelectasis. No appreciable effusion. No focal consolidation or pneumothorax. In the ER patient received thousand milligrams IV 10 vancomycin, normal saline thousand mL 1, Lasix 40 mg IV 1, ceftaz thousand milligrams IV 1 and Lasix 40 mg IV 1. Patient was admitted on general medicine floor for the management of following problems Acute hypoxic respiratory failure 2/2 CAP (though patient was in the hospital recently, will cover her for CA pathogens - of note patient is afebrile). Patient was started on Ceftriaxone and Azithromycin. Negative for Urinary antigen for legionella, and strep PNA. We will follow-up other cultures. Hydrated with NS @[id number]. Patient does not require oxygen at baseline. Currently requiring 2 L of oxygen. We will try to taper this oxygen. We should plan to get a CT scan if oxygen saturation is not improving. Lower GI bleed Painless, most likely 2/2 hemmorhoids and or diverticular bleed in the setting of suprtherapeutic INR. Patient also has history of diverticulosis and hemorrhoids that were seen in colonoscopy that was done in 2008. GI does not plan to do any significant intervention for now unless patient is bleeding actively. We will follow-up morning hemoglobin. Patient has 2 large bore IVs. Patient already received 5mg of SC Vit K. GI consult was obtained. CBC Q8 hrs to monito H&H to maintain Hb>7 (no hx of CAD). Patient was on Protonix 40mg IV that was dc yesterday.Will follow up CBC in am. History of Hypertension Secondary to GI bleeding and acute ASIF, Lasix, BP medications including Amlodipine, Losartan were on hold. His blood pressure remained stable, we will restart amlodipine and add more if needed for better HTN control ASIF Most likely pre-renal, BUN/creatinine ratio more than 20 BUN elevation could be secondary to GI bleeding creatinine 1.7 2 days ago, and improved to 1.3 yesterday, current Cr pending Patient's baseline creatinine is 0.8 0.9, patient was rehydrated Supratehrpeutic INR ? cause. SHe deneis taking any other medications that could alter the INR since she has been on this dose for so long. S/P 5mg Vit K SC was given in emergency department Current INR this morning is pending, yesterday 5.86 decreased from 6.88 Currently Coumadin on hold and will follow up with an INR next day Bilateral venous stasis ulcers Wound care consult was obtained. Improved bilateral lower extremity edema. Continue with Xeroform dressing Hypothryoidism Continue levothyroidsim 88mcg daily. DVT prophylaxis Warfarin on hold Mechanical prophylaxis H/O Dysphagia Patient is currently on chopped diet after swallow evaluation was done. 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 If her dysphagia persists obtain GI consult otherwise outpatient workup. Code Status Full Code Problem List: 1. Acute kidney injury 2. Lower GI bleed Pain Ratin Pain Location: NA Pain Goal: Pain 4 or less Pain Plan: Continue current pain medications Tomorrow's Labs & Rationales: CBC to follow hemoglobin BP to follow kidney function DVT/Prophylaxis: mechanical
[2017-07-22 07:04] VITALS: BP 149/73
[2017-07-22 08:12] LABS: ABSOLUTE BASOPHIL COUNT 0 /CUMM (0.0-0.2); ABSOLUTE EOSINOPHIL COUNT 0 /CUMM (0.0-0.7); ABSOLUTE GRANULOCYTE CT 11.8 /CUMM (1.4-6.5); ABSOLUTE LYMPH COUNT 0.7 /CUMM (1.2-3.4); ABSOLUTE MONOCYTE COUNT 1.1 /CUMM (0.10-0.60); BASOPHIL % 0.1 % (0.0-2.0); EOSINOPHIL % 0.1 % (0-5); GRANULOCYTE % 86.1 % (42.2-75.2); HEMATOCRIT 41.3 % (37-47); MEAN CORPUSCULAR HGB 31.9 PG (27.0-31.0); MEAN CORPUSCULAR HGB CONC 32.3 G/DL (33.0-37.0); MEAN CORPUSCULAR VOLUME 98.9 FL (81.0-99.0); PLATELET COUNT 268 /CUMM (130-400); RBC DISTRIBUTION WIDTH 13.2 % (11.5-14.5); RED BLOOD CELL CT 4.17 /CUMM (4.20-5.40); WHITE BLOOD CELL COUNT 13.7 /CUMM (4.8-10.8)
[2017-07-22 08:25] LABS: PT 30.7 SEC (9.4-12.5)
--- NOTE | 2017-07-22 11:05 | PN- Att Addend ---
Attending Addendum Attending Brief Note Patient seen and examined. Plan of care discussed with the medical team and the patient. Available lab work and radiology test reports were reviewed. Patient has numerous complaints this morning including GERD difficulty sleeping, dry cough and being tired. She denies any fever or chills or any chest pain. Exam: General: Patient awake alert oriented without any distress CVS: S1 plus S2 without any murmur or gallops Chest: Few scattered crepitation without any wheeze. Decreased air entry at the bases. There is no respiratory distress. 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 without any focal neuro deficit and follows commands appropriately Extremities: No edema; no clubbing or cyanosis noted Assessment * Acute hypoxic respiratory failure * Suspected pneumonia lower lobes * Supratehrpeutic INR * Lower GI bleed * HTN * Hypothryoidism Plan * Patient's CBC and chemistry labs tomorrow * Incentive spirometry * Out of bed to chair with assist * Continue azithromycin and ceftriaxone Current Medications Sig/Blayne Start time Last Medication Dose Route Stop Time Status Admin Albuterol Sulfate 3 ML Q4P PRN 07/20 1930 AC INH Amlodipine Besylate 10 MG DAILY 07/22 0900 AC 07/22 PO 0849 Azithromycin 500 MG DAILY 07/21 0900 AC 07/22 Dextrose/Water 250 ML IV 0805 Benzonatate 100 MG TID 07/21 0933 AC 07/22 PO 0849 Ceftriaxone Sodium 1,000 MG 1500 07/20 1500 AC 07/21 IV 1428 Levothyroxine Sodium 0.088 MG DAILY AC 07/21 0700 AC 07/22 PO 0515 Nystatin 1 JOURDAN BID 07/21 0900 AC 07/22 TOP 0806 Pantoprazole Sodium 40 MG DAILY 07/21 0900 DC 07/21 IV 0804 Patient Medication 1 ED ONE ONE 07/21 1715 OK Teaching ED 07/21 1716 Laboratory Tests 07/22/17 0710: Anion Gap 7, Estimated GFR 48 L, BUN/Creatinine Ratio 40.9 H, PT 30.7 H, INR 2.79 H, CBC w Diff MAN DIFF ORDERED, RBC 4.17 L, MCV 98.9, MCH 31.9 H, MCHC 32.3 L, RDW 13.2, MPV 10.0, Gran % 86.1 H, Lymphocytes % 5.3 L, Monocytes % 8.4, Eosinophils % 0.1, Basophils % 0.1, Absolute Granulocytes 11.8 H, Segmented Neutrophils 80 H, Band Neutrophils 5, Absolute Lymphocytes 0.7 L, Lymphocytes 6 L, Monocytes 9, Absolute Monocytes 1.1 H, Absolute Eosinophils 0 , Absolute Basophils 0, Platelet Estimate VERIFIED BY SMEAR, Normocytic RBCs VERIFIED, Normochromic RBCs VERIFIED 07/21/17 0703: Anion Gap 8, Estimated GFR 39 L, BUN/Creatinine Ratio 38.5 H, PT 65.0 *H, INR 5.86 *H, CBC w Diff NO MAN DIFF REQ, RBC 4.25, MCV 99.0, MCH 32.5 H, MCHC 32.8 L, RDW 13.8, MPV 10.0, Gran % 93.0 H, Lymphocytes % 3.0 L, Monocytes % 4.0, Eosinophils % 0, Basophils % 0, Absolute Granulocytes 12.5 H, Absolute Lymphocytes 0.4 L, Absolute Monocytes 0.5, Absolute Eosinophils 0, Absolute Basophils 0 07/21/17 0050: CBC w Diff MAN DIFF ORDERED, RBC 4.08 L, MCV 98.2, MCH 32.2 H, MCHC 32.8 L, RDW 13.3, MPV 10.3, Gran % 95.0 H, Lymphocytes % 2.5 L, Monocytes % 2.5, Eosinophils % 0, Basophils % 0, Absolute Granulocytes 11.4 H, Segmented Neutrophils 91 H, Band Neutrophils 3, Absolute Lymphocytes 0.3 L, Lymphocytes 2 L, Monocytes 4, Absolute Monocytes 0.3, Absolute Eosinophils 0, Absolute Basophils 0, Platelet Estimate ADEQUATE, Polychromasia 1+, Hypochromic- Microcytic 1+, Poikilocytosis 1+, Ovalocytes 1+, Fld Total RBCs Counted 100 07/20/17 1658: Urine Color YEL, Urine Clarity CLEAR, Urine pH 5.5, Ur Specific [place] 1.020, Urine Protein NEG, Urine Ketones NEG, Urine Nitrite NEG, Urine Bilirubin NEG, Urine Urobilinogen 0.2, Ur Leukocyte Esterase NEG, Ur Microscopic SEDIMENT EXAMINED, Urine RBC RARE, Ur Epithelial Cells RARE, Urine Hemoglobin MOD H, Urine Glucose NEG 07/20/17 1547: Lactic Acid 1.1 07/20/17 1547: Anion Gap 11, Estimated GFR 29 L, BUN/Creatinine Ratio 30.0 H, CBC w Diff NO MAN DIFF REQ, RBC 4.39, MCV 99.3 H, MCH 31.4 H, MCHC 31.6 L, RDW 13.5, MPV 10.7 H, Gran % 97.2 H, Lymphocytes % 1.3 L, Monocytes % 1.5 L, Eosinophils % 0, Basophils % 0, Absolute Granulocytes 12.0 H, Absolute Lymphocytes 0.2 L, Absolute Monocytes 0.2, Absolute Eosinophils 0, Absolute Basophils 0 07/20/17 1242: Lactic Acid 1.6 07/20/17 0954: Anion Gap 15, Estimated GFR 27 L, BUN/Creatinine Ratio 31.7 H, Glucose 145 H, Calcium 9.4, Total Bilirubin 1.8 H, AST 15, ALT 24, Alkaline Phosphatase 117, Troponin I < 0.01, Total Protein 6.8, Albumin 3.5, Globulin 3.3, Albumin/ Globulin Ratio 1.1, PT 76.5 *H, INR 6.88 *H, APTT 51 H, CBC w Diff MAN DIFF ORDERED, RBC 4.68, MCV 97.4, MCH 32.1 H, MCHC 32.9 L, RDW 13.5, MPV 10.0, Gran % 90.1 H, Lymphocytes % 5.3 L, Monocytes % 4.3, Eosinophils % 0.2, Basophils % 0.1, Absolute Granulocytes 13.5 H, Segmented Neutrophils 82 H, Band Neutrophils 3, Absolute Lymphocytes 0.8 L, Lymphocytes 6 L, Monocytes 9, Absolute Monocytes 0.7 H, Absolute Eosinophils 0, Absolute Basophils 0, Platelet Estimate VERIFIED BY SMEAR, Normocytic RBCs VERIFIED, Normochromic RBCs VERIFIED 07/20/17 0942: Ref Lab Test Result Pending Microbiology 07/21 1030 LOWER RESP: Respiratory Culture - RES YEAST 07/21 1030 LOWER RESP: Gram Stain - RES 07/20 1658 URINE ROUT: Legionella Antigen - COMP 07/20 165 URINE ROUT: Streptococcus pneumoniae Antigen (M - COMP 07/20 1610 NASOPHARYN: Influenza Virus A & B Rapid Smear - COMP 07/20 1255 BLOOD: Blood Culture - RES 07/20 1242 BLOOD: Blood Culture - RES Vital Signs Date Time Temp Pulse Resp B/P B/P Pulse O2 O2 Flow FiO2 Mean Ox Delivery Rate 07/22 0849 88 142/74 07/22 0800 93 Nasal 2.0L Cannula 07/22 0704 97.8 90 20 149/73 92 Nasal 2.0L Cannula 07/22 0000 Nasal 2.0L Cannula 07/21 2204 98.2 89 20 148/70 94 Room Air 07/21 1600 94 Nasal 2.0L Cannula 07/21 1444 98.1 93 16 148/68 93 Nasal 3.0L Cannula Intake & Output 07/22 1600 07/22 0800 07/22 0000 Intake Total 480 Output Total 250 330 Balance -250 150 Intake, Oral 480 Output, Urine 250 330 Patient 212 lb Weight Weight Bed scale Measurement Method
[2017-07-22 15:08] VITALS: BP 118/78; BP 130/70
[2017-07-22 23:43] VITALS: BP 151/71
[2017-07-23 07:29] VITALS: BP 144/74
[2017-07-23 08:29] LABS: PT 22.3 SEC (9.4-12.5)
[2017-07-23 08:33] LABS: ABSOLUTE BASOPHIL COUNT 0 /CUMM (0.0-0.2); ABSOLUTE EOSINOPHIL COUNT 0 /CUMM (0.0-0.7); ABSOLUTE LYMPH COUNT 0.5 /CUMM (1.2-3.4); ABSOLUTE MONOCYTE COUNT 0.8 /CUMM (0.10-0.60); BASOPHIL % 0 % (0.0-2.0); EOSINOPHIL % 0.3 % (0-5); GRANULOCYTE % 87.8 % (42.2-75.2); HEMATOCRIT 42.3 % (37-47); MEAN CORPUSCULAR HGB 32.3 PG (27.0-31.0); MEAN CORPUSCULAR HGB CONC 32.8 G/DL (33.0-37.0); MEAN CORPUSCULAR VOLUME 98.4 FL (81.0-99.0); MEAN PLATELET VOLUME 9.7 FL (7.4-10.4); PLATELET COUNT 280 /CUMM (130-400); RBC DISTRIBUTION WIDTH 13.5 % (11.5-14.5); RED BLOOD CELL CT 4.29 /CUMM (4.20-5.40)
[2017-07-23 09:58] LABS: WHITE BLOOD CELL COUNT 11.4 /CUMM (4.8-10.8)
--- NOTE | 2017-07-23 10:12 | PN- Housestaff ---
Subjective Follow-up For: Acute hypoxic respiratory failure Supratehrpeutic INR Lower GI bleed HTN Hypothryoidism Complaints: Cough Subjective: Patient appears lethargic. She still has complaints of productive cough. Patient remained afebrile. She denies abdominal pain, nausea or vomitting. She denies dysuria or hematuria. Review of Systems Constitutional: Reports: see HPI. Denies: chills, fever. Cardiovascular: Denies: chest pain, edema, palpitations. Respiratory: Reports: cough. Denies: short of breath. Gastrointestinal: Denies: abdominal pain, nausea. Genitourinary: Denies: dysuria, hematuria. Objective Last 24 Hrs of Vital Signs/I&O Vital Signs Date Time Temp Pulse Resp B/P B/P Pulse O2 O2 Flow FiO2 Mean Ox Delivery Rate 07/238 98.4 83 20 132/66 93 Nasal 2.0L Cannula 07/23 1600 Nasal 3.0L Cannula 07/23 1455 98.0 81 22 155/69 96 Nasal 3.0L Cannula 07/23 0833 98 144/74 07/23 0800 94 Nasal 3.0L Cannula 07/23 0729 98.2 98 20 144/74 96 Room Air 07/23 0000 Nasal 2.0L Cannula Intake & Output 07/23 1600 07/23 0800 07/23 0000 Intake Total 480 240 240 Output Total 650 Balance -170 240 240 Intake, Oral 480 240 240 Output, Urine 650 Patient 208 lb Weight Weight Bed scale Measurement Method Physical Exam General Appearance: Oriented X3, Cooperative, No Acute Distress, Drowsy Skin: No Rashes Skin Temp/Moisture Exam: Warm/Dry Sepsis Skin Exam (color): Normal for Ethnicity HEENT: Atraumatic, PERRLA, EOMI, Dry mucous membranes Neck: Supple, No JVD Lymphatic: Cervical nl Cardiovascular: Regular Rate, Normal S1, Normal S2, No Murmurs Lungs: Clear to Auscultation, Reduced air entry in both lung bases Abdomen: Normal Bowel Sounds, Soft, No Tenderness, No Hepatospenomegaly, No Masses Neurological: Normal Speech, Normal Tone, Cranial Nerves 3-12 NL Extremities: Both legs wrapped in bandage., Mild tenderness in legs Current Medications: Current Medications Sig/Blayne Start time Last Medication Dose Route Stop Time Status Admin Amlodipine Besylate 10 MG DAILY 07/22 0900 AC 07/23 PO 0833 Azithromycin 500 MG DAILY 07/24 09 AC Sodium Chloride 250 ML IV Azithromycin 500 MG DAILY 07/21 0900 DC 07/23 Dextrose/Water 250 ML IV 0833 Benzonatate 100 MG TID 07/21 09 AC 07/23 PO 204 Bisacodyl 10 MG DAILY PRN 07/23 1215 AC [place] Ceftriaxone Sodium 1,000 MG 1500 07/20 1500 AC 07/23 IV 1403 Levothyroxine Sodium 0.088 MG DAILY AC 07/21 0700 AC 07/23 PO 0544 Melatonin 5 MG AT BEDTIME 07/23 2100 AC 07/23 PO 204 Nystatin 1 JOURDAN BID 07/21 0900 AC 07/23 TOP 204 Polyethylene Glycol 17 GM DAILY 07/22 1130 AC 07/23 PO 0832 Senna/Docusate Sodium 2 TAB DAILY 07/22 1130 AC 07/23 PO 0833 Warfarin Sodium 1 MG COUMADIN 1700 ONE 07/23 1700 DC 07/23 PO 07/23 1701 1708 Last 24 Hrs of Lab/Oscar Results Last 24 Hrs of Labs/Mics: Laboratory Tests 07/23/17 0725: Anion Gap 8, Estimated GFR > 60, BUN/Creatinine Ratio 47.5 H, PT 22.3 H, INR 2.03 H, CBC w Diff NO MAN DIFF REQ, RBC 4.29, MCV 98.4, MCH 32.3 H, MCHC 32.8 L, RDW 13.5, MPV 9.7, Gran % 87.8 H, Lymphocytes % 4.7 L, Monocytes % 7.2, Eosinophils % 0.3, Basophils % 0, Absolute Granulocytes 10.0 H, Absolute Lymphocytes 0.5 L, Absolute Monocytes 0.8 H, Absolute Eosinophils 0, Absolute Basophils 0 Assessment/Plan Assessment: 81-year-old white female with a PMH of history of morbidly obese, hyperlipidemia, hypertension, COPD not on home oxygen, GERD, food impaction in esophagus, bladder wall repair 2012, nephrolithiasis, lumbo sacral spinal stenosis repair 2009 status post decompressive lumbosacral laminectomy with IVC filter placement, hypothyroidism, 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 Vitals at the time of admission tachycardic to 99, afebrile respiratory rate of 28 blood pressure 149/72 saturating 88% on room air after which she was placed on 4 L of oxygen via nasal cannula saturations bumped up to 93%. Labs pertinent for leukocytosis with a white blood cell count of 15,000, H&H of 15.0/25.6, platelet count of 229,000. Serum chemistries pertinent for sodium of 139, potassium 3.3, bicarb 32, anion gap 15, BUN 57 and a creatinine of 1.8. Total bili elevated to 1.8, AST/ALT 15/24, alk phos of 117, first of troponin negative less than 0.01. Her INR was supratherapeutic at 6.88. Chest x-ray revealed: Reticular dependent bibasilar opacities are most compatible with atelectasis. No appreciable effusion. No focal consolidation or pneumothorax. In the ER patient received thousand milligrams IV 10 vancomycin, normal saline thousand mL 1, Lasix 40 mg IV 1, ceftaz thousand milligrams IV 1 and Lasix 40 mg IV 1. Patient was admitted on general medicine floor for the management of following problems Acute hypoxic respiratory failure 2/2 CAP (though patient was in the hospital recently, will cover her for CA pathogens - of note patient is afebrile). Patient was started on Ceftriaxone and Azithromycin. Negative for Urinary antigen for legionella, and strep PNA. We will follow-up other cultures. Hydrated with NS @[id number]. Patient does not require oxygen at baseline. Currently requiring 2 L of oxygen. We will try to taper this oxygen. We should plan to get a CT scan if oxygen saturation is not improving. Lower GI bleed Painless, most likely 2/2 hemmorhoids and or diverticular bleed in the setting of suprtherapeutic INR. Patient also has history of diverticulosis and hemorrhoids that were seen in colonoscopy that was done in 2008. GI does not plan to do any significant intervention for now unless patient is bleeding actively. We will follow-up morning hemoglobin. Patient has 2 large bore IVs. Patient already received 5mg of SC Vit K. GI consult was obtained. -CBC can be monitored once a day as her hemoglobin has been stable - Maintain Hb>7 (no hx of CAD) History of Hypertension -Secondary to GI bleeding and acute ASIF, Lasix, BP medications including Amlodipine, Losartan were on hold. His blood pressure remained stable -Amlodipine has been restarted for better HTN control ASIF Most likely pre-renal, BUN/creatinine ratio more than 20 BUN elevation could be secondary to GI bleeding creatinine 1.7 2 days ago, and improved to 0.8 today Patient's baseline creatinine is 0.8- 0.9. Supratehrpeutic INR-Resolved -Her supratherapeutic INR on admission is of unclear etiology -SHe deneis taking any other medications that could alter the INR since she has been on this dose for so long. -Current INR this morning is 2.03 -WIll dose coumadin 1 mg once and check INR and CBC tomorrow Bilateral venous stasis ulcers Wound care consult was obtained. Improved bilateral lower extremity edema. Continue with Xeroform dressing Hypothryoidism Continue levothyroidsim 88mcg daily. DVT prophylaxis Coumadin Mechanical prophylaxis H/O Dysphagia Patient is currently on chopped diet after swallow evaluation was done. 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 If her dysphagia persists obtain GI consult otherwise outpatient workup. Code Status Full Code? cause. Problem List: 1. Hypoxia 2. Pneumonia 3. Hypothyroidism 4. Lower GI bleed Pain Ratin Pain Location: None Pain Goal: Remain pain free Pain Plan: Local agents as needed Tomorrow's Labs & Rationales: CBC, INR for coumadin monitoring DVT/Prophylaxis: mechanical, pharmacological
--- NOTE | 2017-07-23 12:22 | PN- Att Addend ---
Attending Addendum Attending Brief Note Patient seen and examined. Plan of care discussed with the medical team and the patient. Available lab work and radiology test reports were reviewed. Patient has numerous complaints this morning including GERD difficulty sleeping, dry cough and being tired. She denies any fever or chills or any chest pain. As per nursing staff patient has been confused overnight. She had trouble falling sleep. She also call 911 thinking that she is stuck in her basement. Exam: General: Patient awake lethargic and currently oriented without any distress CVS: S1 plus S2 without any murmur or gallops Chest: Few scattered crepitation without any wheeze. Decreased air entry at the bases. There is no respiratory distress. Abdomen: Soft non-tender, bowel sound present, no guarding or rebound CULLET CRUSHER: Awake oriented without any focal neuro deficit and follows commands appropriately Extremities: No edema; no clubbing or cyanosis noted Assessment * Acute hypoxic respiratory failure * Suspected pneumonia lower lobes * Supratehrpeutic INR * Lower GI bleed * HTN * Hypothryoidism * Acute renal failure creatinine now normal range * Delirium and sundowning especially during the night Plan * Check CBC tomorrow * Continue Incentive spirometry * Out of bed to chair with assist * Continue azithromycin and ceftriaxone * Add melatonin for sleep Current Medications Sig/Blayne Start time Last Medication Dose Route Stop Time Status Admin Albuterol Sulfate 3 ML Q4P PRN 07/20 1930 DC INH Amlodipine Besylate 10 MG DAILY 07/22 0900 AC 07/23 PO 0833 Azithromycin 500 MG DAILY 07/24 0900 AC Sodium Chloride 250 ML IV Azithromycin 500 MG DAILY 07/21 0900 DC 07/23 Dextrose/Water 250 ML IV 0833 Benzonatate 100 MG TID 07/21 0933 AC 07/23 PO 0838 Bisacodyl 10 MG DAILY PRN 07/23 1215 AC [place] Ceftriaxone Sodium 1,000 MG 1500 07/20 1500 AC 07/22 IV 1400 Levothyroxine Sodium 0.088 MG DAILY AC 07/21 0700 AC 07/23 PO 0544 Nystatin 1 JOURDAN BID 07/21 0900 AC 07/23 TOP 0838 Polyethylene Glycol 17 GM DAILY 07/22 1130 AC 07/23 PO 0832 Senna/Docusate Sodium 2 TAB DAILY 07/22 1130 AC 07/23 PO 0833 Warfarin Sodium 1 MG COUMADIN 1700 ONE 07/23 1700 AC PO 07/23 1701 Laboratory Tests 07/23/17 0725: Anion Gap 8, Estimated GFR > 60, BUN/Creatinine Ratio 47.5 H, PT 22.3 H, INR 2.03 H, CBC w Diff NO MAN DIFF REQ, RBC 4.29, MCV 98.4, MCH 32.3 H, MCHC 32.8 L, RDW 13.5, MPV 9.7, Gran % 87.8 H, Lymphocytes % 4.7 L, Monocytes % 7.2, Eosinophils % 0.3, Basophils % 0, Absolute Granulocytes 10.0 H, Absolute Lymphocytes 0.5 L, Absolute Monocytes 0.8 H, Absolute Eosinophils 0, Absolute Basophils 0 07/22/17 0710: Anion Gap 7, Estimated GFR 48 L, BUN/Creatinine Ratio 40.9 H, PT 30.7 H, INR 2.79 H, CBC w Diff MAN DIFF ORDERED, RBC 4.17 L, MCV 98.9, MCH 31.9 H, MCHC 32.3 L, RDW 13.2, MPV 10.0, Gran % 86.1 H, Lymphocytes % 5.3 L, Monocytes % 8.4, Eosinophils % 0.1, Basophils % 0.1, Absolute Granulocytes 11.8 H, Segmented Neutrophils 80 H, Band Neutrophils 5, Absolute Lymphocytes 0.7 L, Lymphocytes 6 L, Monocytes 9, Absolute Monocytes 1.1 H, Absolute Eosinophils 0 , Absolute Basophils 0, Platelet Estimate VERIFIED BY SMEAR, Normocytic RBCs VERIFIED, Normochromic RBCs VERIFIED 07/21/17 0703: Anion Gap 8, Estimated GFR 39 L, BUN/Creatinine Ratio 38.5 H, PT 65.0 *H, INR 5.86 *H, CBC w Diff NO MAN DIFF REQ, RBC 4.25, MCV 99.0, MCH 32.5 H, MCHC 32.8 L, RDW 13.8, MPV 10.0, Gran % 93.0 H, Lymphocytes % 3.0 L, Monocytes % 4.0, Eosinophils % 0, Basophils % 0, Absolute Granulocytes 12.5 H, Absolute Lymphocytes 0.4 L, Absolute Monocytes 0.5, Absolute Eosinophils 0, Absolute Basophils 0 07/21/17 0050: CBC w Diff MAN DIFF ORDERED, RBC 4.08 L, MCV 98.2, MCH 32.2 H, MCHC 32.8 L, RDW 13.3, MPV 10.3, Gran % 95.0 H, Lymphocytes % 2.5 L, Monocytes % 2.5, Eosinophils % 0, Basophils % 0, Absolute Granulocytes 11.4 H, Segmented Neutrophils 91 H, Band Neutrophils 3, Absolute Lymphocytes 0.3 L, Lymphocytes 2 L, Monocytes 4, Absolute Monocytes 0.3, Absolute Eosinophils 0, Absolute Basophils 0, Platelet Estimate ADEQUATE, Polychromasia 1+, Hypochromic- Microcytic 1+, Poikilocytosis 1+, Ovalocytes 1+, Fld Total RBCs Counted 100 07/20/171657: Urine Color YEL, Urine Clarity CLEAR, Urine pH 5.5, Ur Specific [place] 1.020, Urine Protein NEG, Urine Ketones NEG, Urine Nitrite NEG, Urine Bilirubin NEG, Urine Urobilinogen 0.2, Ur Leukocyte Esterase NEG, Ur Microscopic SEDIMENT EXAMINED, Urine RBC RARE, Ur Epithelial Cells RARE, Urine Hemoglobin MOD H, Urine Glucose NEG 07/20/17 1547: Lactic Acid 1.1 07/20/17 1547: Anion Gap 11, Estimated GFR 29 L, BUN/Creatinine Ratio 30.0 H, CBC w Diff NO MAN DIFF REQ, RBC 4.39, MCV 99.3 H, MCH 31.4 H, MCHC 31.6 L, RDW 13.5, MPV 10.7 H, Gran % 97.2 H, Lymphocytes % 1.3 L, Monocytes % 1.5 L, Eosinophils % 0, Basophils % 0, Absolute Granulocytes 12.0 H, Absolute Lymphocytes 0.2 L, Absolute Monocytes 0.2, Absolute Eosinophils 0, Absolute Basophils 0 07/20/17 1242: Lactic Acid 1.6 Microbiology 07/21 1030 LOWER RESP: Respiratory Culture - RES YEAST 07/21 1030 LOWER RESP: Gram Stain - RES 07/20 1658 URINE ROUT: Legionella Antigen - COMP 07/20 165 URINE ROUT: Streptococcus pneumoniae Antigen (M - COMP 07/20 1610 NASOPHARYN: Influenza Virus A & B Rapid Smear - COMP 07/20 1255 BLOOD: Blood Culture - RES 07/20 1242 BLOOD: Blood Culture - RES Vital Signs Date Time Temp Pulse Resp B/P B/P Pulse O2 O2 Flow FiO2 Mean Ox Delivery Rate 07/23 0833 98 144/74 07/23 0800 94 Nasal 3.0L Cannula 07/23 0729 98.2 98 20 144/74 96 Room Air 07/23 0000 Nasal 2.0L Cannula 07/22 2343 98.3 88 20 151/71 95 Room Air 07/22 1600 95 Nasal 2.0L Cannula 07/22 1508 97.1 86 18 130/70 93 Nasal Cannula 07/22 1346 95 Nasal 2.0L Cannula Intake & Output 07/23 1600 07/23 0800 07/23 0000 Intake Total 240 240 Output Total Balance 240 240 Intake, Oral 240 240 Patient 208 lb Weight Weight Bed scale Measurement Method
[2017-07-23 14:55] VITALS: BP 155/69
[2017-07-23 22:08] VITALS: BP 132/66
[2017-07-24 05:59] VITALS: BP 160/74
--- NOTE | 2017-07-24 07:20 | PN- Housestaff ---
MagnoKelsey 07/24/17 0719: Subjective Follow-up For: - Acute hypoxemic respiratory failure - Supratehrpeutic INR - Lower GI bleed - HTN - Hypothryoidism Subjective: Patient seen and exmained at bedside. She was having breakfast. Of note she had an episode of sundowning over the weekend, but no events for us overnight. She continues to be on 2.0 liters of O2. Deneis any passage of blood clots in her stools, chest pain, fever but does endosre mild shortness of breath. She states that her cough has improved, and she is bringing scant amount of phlgem now. Vitals hypertensive to the 160's in the setting of her medications being held. Remains afebrile. Blood work this AM reveiwed. Leukocytosis has resolved and her INR is subtherapeutic after Coumadin was resumed yesterday. Review of Systems Constitutional: Denies: chills, diaphoresis, fever. EENTM: Denies: visual changes. Cardiovascular: Denies: chest pain, orthopena, palpitations, peripheral edema. Respiratory: Reports: cough, short of breath, sputum production. Denies: orthopnea, wheezing. Gastrointestinal: Denies: abdominal pain, nausea, bloody stool, vomiting. Genitourinary: Reports: no symptoms. Neurological/Psychological: Denies: headache, numbness, tingling, tremors, unable to move lower ext, unable to move upper ext. Objective Last 24 Hrs of Vital Signs/I&O Vital Signs Date Time Temp Pulse Resp B/P B/P Pulse O2 O2 Flow FiO2 Mean Ox Delivery Rate 07/24 0559 98.5 85 20 160/74 94 07/24 0000 93 Nasal 2.0L Cannula 07/23 2208 98.4 83 20 132/66 93 Nasal 2.0L Cannula 07/23 1600 Nasal 3.0L Cannula 07/23 1455 98.0 81 22 155/69 96 Nasal 3.0L Cannula 07/23 0833 98 144/74 07/23 0800 94 Nasal 3.0L Cannula 07/23 0729 98.2 98 20 144/74 96 Room Air Intake & Output 07/24 0800 07/24 0000 07/23 1600 Intake Total 240 500 480 Output Total 150 300 650 Balance 90 200 -170 Intake, Oral 240 500 480 Number 1 Bowel Movements Output, Urine 150 300 650 Patient 207 lb Weight Weight Bed scale Measurement Method Physical Exam General Appearance: Alert, Oriented X3, Cooperative, No Acute Distress Skin Temp/Moisture Exam: Warm/Dry HEENT: Atraumatic, PERRLA, EOMI, dry mucous membranes Neck: Supple, No thryomegaly, No LAD Cardiovascular: Normal S1, Normal S2, No Murmurs Lungs: mild bibasilar crackles Abdomen: Normal Bowel Sounds, Soft, No Tenderness Neurological: Normal Speech Extremities: lower extremities wrapped in wound dressing Current Medications: Current Medications Sig/Blayne Start time Last Medication Dose Route Stop Time Status Admin Amlodipine Besylate 10 MG DAILY 07/22 0900 AC 07/23 PO 0833 Azithromycin 500 MG DAILY 07/24 0900 AC Sodium Chloride 250 ML IV Azithromycin 500 MG DAILY 07/21 0900 DC 07/23 Dextrose/Water 250 ML IV 0833 Benzonatate 100 MG TID 07/21 0933 AC 07/23 PO 2049 Bisacodyl 10 MG DAILY PRN 07/23 1215 AC OK Ceftriaxone Sodium 1,000 MG 1500 07/20 1500 AC 07/23 IV 1403 Furosemide 40 MG DAILY 07/24 0900 UNVr PO Levothyroxine Sodium 0.088 MG DAILY AC 07/21 0700 AC 07/24 PO 0517 Losartan Potassium 100 MG DAILY 07/24 0900 UNVr PO Melatonin 5 MG AT BEDTIME 07/23 2100 AC 07/23 PO 2049 Nystatin 1 JOURDAN BID 07/21 0900 AC 07/23 TOP 2049 Polyethylene Glycol 17 GM DAILY 07/22 1130 AC 07/23 PO 0832 Senna/Docusate Sodium 2 TAB DAILY 07/22 1130 AC 07/23 PO 0833 Warfarin Sodium 1 MG COUMADIN 1700 ONE 07/23 1700 DC 07/23 PO 07/23 1701 1708 Last 24 Hrs of Lab/Oscar Results Last 24 Hrs of Labs/Mics: Laboratory Tests 07/23/17 0725: Anion Gap 8, Estimated GFR > 60, BUN/Creatinine Ratio 47.5 H, PT 22.3 H, INR 2.03 H, CBC w Diff NO MAN DIFF REQ, RBC 4.29, MCV 98.4, MCH 32.3 H, MCHC 32.8 L, RDW 13.5, MPV 9.7, Gran % 87.8 H, Lymphocytes % 4.7 L, Monocytes % 7.2, Eosinophils % 0.3, Basophils % 0, Absolute Granulocytes 10.0 H, Absolute Lymphocytes 0.5 L, Absolute Monocytes 0.8 H, Absolute Eosinophils 0, Absolute Basophils 0 Assessment/Plan Assessment: 81-year-old white female with a PMH of history of morbidly obese, hyperlipidemia, hypertension, COPD not on home oxygen, GERD, food impaction in esophagus, bladder wall repair 2012, nephrolithiasis, lumbo sacral spinal stenosis repair 2009 status post decompressive lumbosacral laminectomy with IVC filter placement, hypothyroidism, 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 Vitals at the time of admission tachycardic to 99, afebrile respiratory rate of 28 blood pressure 149/72 saturating 88% on room air after which she was placed on 4 L of oxygen via nasal cannula saturations bumped up to 93%. Labs pertinent for leukocytosis with a white blood cell count of 15,000, H&H of 15.0/25.6, platelet count of 229,000. Serum chemistries pertinent for sodium of 139, potassium 3.3, bicarb 32, anion gap 15, BUN 57 and a creatinine of 1.8. Total bili elevated to 1.8, AST/ALT 15/24, alk phos of 117, first of troponin negative less than 0.01. Her INR was supratherapeutic at 6.88. Chest x-ray revealed: Reticular dependent bibasilar opacities are most compatible with atelectasis. No appreciable effusion. No focal consolidation or pneumothorax. In the ER patient received thousand milligrams IV 10 vancomycin, normal saline thousand mL 1, Lasix 40 mg IV 1, ceftaz thousand milligrams IV 1 and Lasix 40 mg IV 1. Patient was admitted on general medicine floor for the management of following problems Acute hypoxic respiratory failure 2/2 CAP (though patient was in the hospital recently, will cover her for CA pathogens - of note patient is afebrile). Patient was started on Ceftriaxone and Azithromycin (presently day #4), and is improving. Continue the same for a total of 5 days. Negative for Urinary antigen for legionella, and strep PNA. BCx2: NGTD LRCcultures: yeast. Hydrated with NS @75smlg3. Patient does not require oxygen at baseline. Currently requiring 2 L of oxygen. We will try to taper this oxygen. Meanwhile will resume Lasix. We should plan to get a CT scan if oxygen saturation is not improving after being started on lasix. Lower GI bleed Painless, most likely 2/2 hemmorhoids and or diverticular bleed in the setting of suprtherapeutic INR. Patient also has history of diverticulosis and hemorrhoids that were seen in colonoscopy that was done in 2008. GI does not plan to do any significant intervention for now unless patient is bleeding actively. We will serially monitor hemoglobin especially sicne Coumadin has been resumed. Patient already received 5mg of SC Vit K on admission, and Coumadin was subseuently held, allowing for INR to drift. GI consult was obtained. Will tentaively plan for a repeat outpatient colonoscopy, since patient's H&H remained stable since. - Maintain Hb>7 (no hx of CAD) History of Hypertension -Secondary to GI bleeding and acute ASIF, Lasix, BP medications including Amlodipine, Losartan were on hold. Her blood pressure is elevated. Resume Lasix and Losatrtan today. Continue Amlodipine. ASIF Resolved Most likely pre-renal, BUN/creatinine ratio more than 20 BUN elevation could be secondary to GI bleeding Creatinine 1.7 on admsision and improved to 0.8 with hydration. Supratherpeutic INR - Resolved. -She had supratherapeutic INR on admission which is of unclear etiology -Patient denied taking any other medications that could alter the INR since she has been on this dose for so long. -Current INR this morning is 1.66 after being dosed with 1mg of Coumadin yesterday. -Will dose coumadin 3 mg once and check INR and CBC tomorrow Bilateral venous stasis ulcers Wound care consult was obtained. Improved bilateral lower extremity edema. Continue with Xeroform dressing Hypothryoidism Continue levothyroidsim 88mcg daily. H/O Dysphagia Patient is currently on chopped diet after swallow evaluation was done. Patient has h/o dysphagia and underwent peptic stricture, dilation on 04/17/15. She will f/u with GI as an outpatient. As of this point, she doesn't complain of any problems and has not been choking on food. Generalized phsyical deconditioning Obtain PT eval. Most likley benefir from D/C to STR DVT prophylaxis On Coumadin Mechanical prophylaxis Code Status Full Code Problem List: 1. Acute kidney injury 2. Hypoxia 3. Pneumonia 4. Lower GI bleed Pain Ratin Pain Location: n/a Pain Goal: Remain pain free Pain Plan: tyelnol Tomorrow's Labs & Rationales: CBC- WBC BEP - Cr INR- Coumadin Blane Hood MD 07/24/17 3984: Attending MD Review Statement Attending Statement Attending MD Statement: examined this patient, discuss w/resident/PA/STEEL MOLDER, agreed w/resident/PA/STEEL MOLDER, discussed with family, reviewed EMR data (avail), discussed with nursing, discussed with case mgmt, amended to note Attending Assessment/Plan: The patient was seen and discussed with house staff, nursing, family () and case management. OK to discharge to [facility] today at [facility].
--- NOTE | 2017-07-24 07:20 | Discharge Summary ---
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 Vitals at the time of admission tachycardic to 99, afebrile respiratory rate of 28 blood pressure 149/72 saturating 88% on room air after which she was placed on 4 L of oxygen via nasal cannula saturations bumped up to 93%. Labs pertinent for leukocytosis with a white blood cell count of 15,000, H&H of 15.0/25.6, platelet count of 229,000. Serum chemistries pertinent for sodium of 139, potassium 3.3, bicarb 32, anion gap 15, BUN 57 and a creatinine of 1.8. Total bili elevated to 1.8, AST/ALT 15/24, alk phos of 117, first of troponin negative less than 0.01. Her INR was supratherapeutic at 6.88. Chest x-ray revealed: Reticular dependent bibasilar opacities are most compatible with atelectasis. No appreciable effusion. No focal consolidation or pneumothorax. In the ER patient received thousand milligrams IV 10 vancomycin, normal saline thousand mL 1, Lasix 40 mg IV 1, ceftaz thousand milligrams IV 1 and Lasix 40 mg IV 1. Patient was admitted on general medicine floor for the management of following problems: Acute hypoxic respiratory failure This was 2/2 community acquire pneumonia (though patient was in the hospital recently, we covered her for CA pathogens). Patient was started on Ceftriaxone and Azithromycin, and swicthed to Ceftin and Zmax PO for a total of 5 days. Negative for Urinary antigen for legionella, and strep PNA. Her BCx2 showed NGTD, and LRC cultures showed growth of yeast. She was hydrated with NS @ 83zrep6. Patient does not require oxygen at baseline, however, was requiring 2 L of oxygen, which was tapered to maintain sats greater than 95%. Lower GI bleed Painless, most likely 2/2 hemmorhoids or diverticular bleed in the setting of suprtherapeutic INR. Patient also had history of diverticulosis and hemorrhoids that were seen in colonoscopy that was done in 2008. GI did not plan to do any significant intervention for now unless patient is bleeding actively. We serially monitored hemoglobin especially since Coumadin has been resumed. Patient already received 5mg of SC Vit K on admission, and Coumadin was subseuently held, allowing for INR to drift. GI consult was obtained. Will tentatively plan for a repeat outpatient colonoscopy, since patient's H&H remained stable since. She should have a repeat CBC tomorrow to ensure she is not dropping her H&H. History of Hypertension In the setting of GI bleeding and acute ASIF, Lasix, and other blood pressure medications were held temporarily which were later resumed, once her BP stabilized, and ASIF improved. ASIF Patient had a creatinine of 1.7 on admission, which was most likely pre-renal, BUN/creatinine ratio more than 20, in the setting of GI bleed. Her renal fucntion improved to 0.8 with hydration. Please check a repeat BEP tomorrow . Supratherpeutic INR Patient had supratherapeutic INR on admission which is of unclear etiology. She denied taking any other medications that could alter the INR since she has been on this dose for so long. She received 5mg of Vit K in the ER, and the following days we allwoed it to drift. She was restarted on Coumadin. Please dose Coumadin to maintain INR betweeen 2-3. Please check INR daily for the next one week. Bilateral venous stasis ulcers Wound care consult was obtained. Improved bilateral lower extremity edema. She is to continue with Xeroform dressing. Hypothryoidism She was continued on levothyroidsim 88mcg daily. H/O Dysphagia Patient has h/o dysphagia and underwent peptic stricture, dilation on 04/17/15. Swallow eval was obtained and patient was started on chopped and thin diet subsequently. She will f/u with GI as an outpatient after her erspiratory symptyoms have improved. Generalized phsyical deconditioning We obtained PT eval, as she seemed deconditioned. PT recommended D/C to STR. DVT prophylaxis Patient was on mechanical prophylaxis, and Coumadin Code Status Full Code Allergies: Coded Allergies: indomethacin (UNKNOWN 07/09/15) Significant Procedures: SERVICE DATE: 07/20/17 EXAM TYPE: RAD - XRY-PORTABLE CHEST XRAY FINDINGS: Reticular dependent bibasilar opacities are most compatible with atelectasis. No appreciable effusion. No focal consolidation or pneumothorax. Double density overlying the cardiac silhouette corresponds to the known hiatal hernia. Cardiac silhouette is normal in size. Bones are osteopenic. 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 IMPRESSION: Dependent bibasilar opacities, most compatible with dependent atelectasis. Pertinent Lab Results: Laboratory Tests 07/24 07/24 0800 0600 Chemistry Sodium (137 - 145 mmol/L) 144 Potassium (3.5 - 5.1 mmol/L) 4.6 Chloride (98 - 107 mmol/L) 100 Carbon Dioxide (22 - 30 mmol/L) 35 H Anion Gap (5 - 16) 9 BUN (7 - 17 mg/dL) 26 H Creatinine (0.5 - 1.0 mg/dL) 0.8 Estimated GFR (>60 ml/min) > 60 BUN/Creatinine Ratio (7 - 25 %) 32.5 H Coagulation PT (9.4 - 12.5 SEC) 18.2 H INR (0.90 - 1.19) 1.66 H Hematology CBC w Diff NO MAN DIFF REQ WBC (4.8 - 10.8 /CUMM) 9.9 RBC (4.20 - 5.40 /CUMM) 4.27 Hgb (12.0 - 16.0 G/DL) 13.7 Hct (37 - 47 %) 42.4 MCV (81.0 - 99.0 FL) 99.2 H MCH (27.0 - 31.0 PG) 32.0 H MCHC (33.0 - 37.0 G/DL) 32.3 L RDW (11.5 - 14.5 %) 13.4 Plt Count (130 - 400 /CUMM) 278 MPV (7.4 - 10.4 FL) 9.6 Gran % (42.2 - 75.2 %) 81.9 H Lymphocytes % (20.5 - 51.1 %) 9.5 L Monocytes % (1.7 - 9.3 %) 7.0 Eosinophils % (0 - 5 %) 1.5 Basophils % (0.0 - 2.0 %) 0.1 Absolute Granulocytes (1.4 - 6.5 /CUMM) 8.1 H Absolute Lymphocytes (1.2 - 3.4 /CUMM) 0.9 L Absolute Monocytes (0.10 - 0.60 /CUMM) 0.7 H Absolute Eosinophils (0.0 - 0.7 /CUMM) 0.2 Absolute Basophils (0.0 - 0.2 /CUMM) 0 Miscellaneous Ref Lab Test Result Pending Disposition Summary Disposition Principal Diagnosis: Lower GI Bleed 2/2 hemmorhoids versus diverticuler bleed Acute hypoxic respiratory failure 2/2 CAP Additional Diagnosis: 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 Discharge Disposition: SNF Discharge Instructions General Discharge Information Code Status: Full Code Patient's Diet: Regular (chopped and thins) Patient's Activity: As tolerated Follow-Up Instructions/Appts: Please follow up with your primary care physician in one week. Please follow up with your GI doctor in one week, for an outpatient colonsocpy and a repear upper endoscopy for ? worsenign dysphagia 2/2 peptic stricture Please dose Coumadin to maintain INR betweeen 2-3. Please check INR daily for the next one week. Goal INR 2-3. Please check a repeat CBC and BEP tomorrow to check H&H and Cr. Medications at Discharge Discharge Medications: Stop taking the following medications: Furosemide (Furosemide) 40 MG TABLET ORAL DAILY Qty = 90 Continue taking these medications: Levothyroxine Sodium (Synthroid) 88 MCG TABLET 1 Tablet ORAL DAILY BEFORE BREAKFAST Comments: Last Taken: 07/24/17 Time: 5:15 AM Warfarin Sodium (Coumadin) 3 MG TABLET 1 Tablet ORAL DAILY Comments: Last Taken: 07/23/17 Time: 5:00 PM Losartan (Cozaar) 100 MG TABLET 100 Milligram ORAL DAILY Qty = 90 Instructions: . Comments: Last Taken: 07/24/17 Time: 9:15 AM Amlodipine Besylate (Norvasc) 10 MG TABLET 10 Milligram ORAL DAILY Qty = 90 Instructions: . Comments: Last Taken: 07/24/17 Time: 9:15 AM Start taking the following new medications: Cefuroxime Axetil (Cefuroxime) 250 MG TABLET 250 Milligram ORAL EVERY 12 HOURS Qty = 3 No Refills Comments: Last Taken: 07/24/17 Time: 1:15 PM Azithromycin (Azithromycin) 250 MG TABLET 250 Milligram ORAL DAILY Qty = 1 No Refills Comments: Last Taken: 07/24/17 Time: 1:15 PM Melatonin (Melatonin) 5 MG TABLET 5 Milligram ORAL AT BEDTIME as needed for sleep Qty = 30 No Refills Comments: Last Taken: 07/23/17 Time: 8:45 PM Furosemide (Furosemide) 20 MG TABLET 1 Tablet ORAL DAILY Qty = 60 No Refills Comments: Last Taken: 07/24/17 Time: 9:15 AM Copies To: Atiya OSORIO,Ricci Ledezma; El OSORIO,Mike Marin; Mahendra OSORIO,Maryellen Lagos Attending MD Review Statement Documenting Attending: Blane Hood MD Other Findings: The patient was seen and discussed with house staff, family (), nursing and case management. OK to discharge to [facility] at [facility] today. Will need close monitor of INR (received 1 mg Coumadin last pm) and BEP. Lasix 20 mg daily and Losartan restarted. Suspect that some of her LE edema is not related to diastolic CHF (EF preserved), however is from venous insufficiency. Will complete course of Abx po and taper off oxygen at [facility].
[2017-07-24 08:46] LABS: PT 18.2 SEC (9.4-12.5)
[2017-07-24 08:48] LABS: ABSOLUTE BASOPHIL COUNT 0 /CUMM (0.0-0.2); ABSOLUTE EOSINOPHIL COUNT 0.2 /CUMM (0.0-0.7); ABSOLUTE GRANULOCYTE CT 8.1 /CUMM (1.4-6.5); ABSOLUTE LYMPH COUNT 0.9 /CUMM (1.2-3.4); ABSOLUTE MONOCYTE COUNT 0.7 /CUMM (0.10-0.60); BASOPHIL % 0.1 % (0.0-2.0); EOSINOPHIL % 1.5 % (0-5); GRANULOCYTE % 81.9 % (42.2-75.2); HEMATOCRIT 42.4 % (37-47); MEAN CORPUSCULAR HGB CONC 32.3 G/DL (33.0-37.0); MEAN CORPUSCULAR VOLUME 99.2 FL (81.0-99.0); MEAN PLATELET VOLUME 9.6 FL (7.4-10.4); PLATELET COUNT 278 /CUMM (130-400); RBC DISTRIBUTION WIDTH 13.4 % (11.5-14.5); RED BLOOD CELL CT 4.27 /CUMM (4.20-5.40); WHITE BLOOD CELL COUNT 9.9 /CUMM (4.8-10.8)
[2017-07-24] MEDS ORDERED: CEFUROXIME250 M1 PO (14:01)
[2017-07-24] MEDS ORDERED: MELATONIN5 M7 PO (14:01)
[2017-07-24] MEDS ORDERED: AZITHROMYCIN250 M1 PO (14:01)
--- NOTE | 2017-07-24 14:03 | Patient Discharge Instructions ---
Discharge Instructions General Discharge Information You were seen/treated for: - Pneumonia - Lower GI bleed Special Instructions: Please follow up with your primary care physician in one week. Please follow up with your GI doctor in one week, for na outpatient colonsocpy and a repear upper endoscopy for ? worsenign dysphagia 2/2 peptic stricture Please dose Coumadin to maintain INR betweeen 2-3. Please check INR daily for the next one week. Please check a repeat CBC and BEP tomorrow to check H&H and Cr. Diet Recommended Diet: Heart Healthy Activity Activity Self Limited: Yes Acute Coronary Syndrome Inclusion Criteria At DC or during hospital stay patient has or had the following: ACS DIAGNOSIS No Discharge Core Measures Meds if any: Prescribed or Continued at Discharge Meds if any: NOT Prescribed or Continued at Discharge Congestive Heart Failure Inclusion Criteria At DC or during hospital stay patient has or had the following: CHF DIAGNOSIS No Discharge Core Measures Meds if any: Prescribed or Continued at Discharge Meds if any: NOT Prescribed or Continued at Discharge Cerebrovascular accident Inclusion Criteria At DC or during hospital stay patient has or had the following: CVA/TIA Diagnosis No Discharge Core Measures Meds if any: Prescribed or Continued at Discharge Meds if any: NOT Prescribed or Continued at Discharge Venous thromboembolism Inclusion Criteria VTE Diagnosis No VTE Type NONE VTE Confirmed by (Test) NONE Discharge Core Measures - Per Current guidelines, there needs to be overlap - treatment for the first 5 days of Warfarin therapy. - If discharged on Warfarin prior to 5 days of - overlap therapy, the patient will need to be - assessed for post discharge needs including - *Post discharge parental anticoagulation - *Warfarin and/or parental anticoagulation education - *Follow up date to check INR post discharge At least 5 days overlap therapy as Inpatient No Meds if any: Prescribed or Continued at Discharge Note: Overlap Therapy is Warfarin and Anticoagulant Meds if any: NOT Prescribed or Continued at Discharge
[2017-07-24 14:07] VITALS: BP 128/62; BP 158/80
[2017-07-24] MEDS ORDERED: FUROSEMIDE20 M1 PO (14:22)
[2017-07-24 14:31] VITALS: BP 128/62
== END 2017-07-24 17:20 | DRG 377 ==
LOC: ERH 09:27 → ERHI 11:10 → 2NB 11:10 → ENRESERV 12:47 → ENTRNSPT 13:35 → EDTRNSPT 13:51 → EDTRNSPTSTS 13:51 → 2NB 13:59 → CMPTRNSPT 14:06 → ENPENDDIS 07-24 14:46 → 2NB 07-24 17:20
PROVIDERS: Internal Medicine; Internal Medicine Infectious Disease; Physician Assistant Medical; Student in an Organized Health Care Education/Training Program
DX: K92.2 Gastrointestinal hemorrhage, unspecified (principal); J96.01 Acute respiratory failure with hypoxia; N17.9 Acute kidney failure, unspecified; J18.9 Pneumonia, unspecified organism; I11.0 Hypertensive heart disease with heart failure; L97.812 Non-pressure chronic ulcer of other part of right lower leg with fat layer exposed; I50.32 Chronic diastolic (congestive) heart failure; E66.01 Morbid (severe) obesity due to excess calories; I83.018 Varicose veins of right lower extremity with ulcer other part of lower leg; R13.19 Other dysphagia; J44.9 Chronic obstructive pulmonary disease, unspecified; L97.822 Non-pressure chronic ulcer of other part of left lower leg with fat layer exposed; E89.0 Postprocedural hypothyroidism; Z68.35 Body mass index [BMI] 35.0-35.9, adult; Z86.718 Personal history of other venous thrombosis and embolism; Z79.01 Long term (current) use of anticoagulants; R89.2 Abnormal level of other drugs, medicaments and biological substances in specimens from other organs, systems and tissues; T45.515A Adverse effect of anticoagulants, initial encounter; Z95.828 Presence of other vascular implants and grafts; K21.9 Gastro-esophageal reflux disease without esophagitis; I83.028 Varicose veins of left lower extremity with ulcer other part of lower leg; I87.2 Venous insufficiency (chronic) (peripheral); Z91.14 Patient's other noncompliance with medication regimen; E78.5 Hyperlipidemia, unspecified; Z95.9 Presence of cardiac and vascular implant and graft, unspecified; Z90.710 Acquired absence of both cervix and uterus; Z98.1 Arthrodesis status; R91.8 Other nonspecific abnormal finding of lung field; R79.1 Abnormal coagulation profile; R00.0 Tachycardia, unspecified
CPT/HCPCS: 2NBSP; 36415; 36592; 71045; 81001; 82436; 87040; 87070; 87071; 87449; 87450; 87804; 87804-59; 93005; 93010; 96374; 96375; 97110-GO; 97116-GO; 97161-GP; 97530-GO; 99291; J0456; J0696; J0713; J1940; J3370; J3490; J7040; J7060